=== PATIENT | male | born 2000 | race Caucasian/White ===

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

== ENCOUNTER 2020-07-10 01:21 | Emergency (ER) | payer BC, MEDICAID ==
[2020-07-10] MEDS ORDERED: DELTASONE 20 MG PO ONE (02:27)
[2020-07-10] MEDS ORDERED: Augmentin 875-125 Tablet PO ONE (02:27)
--- NOTE | 2020-07-10 02:34 | ERPHSYRPT ---
- History of Present Illness Time Seen by Provider: 07/10/20 02:10 Source: patient Exam Limitations: no limitations Physician History: 19 years old presented in the ER with chief complaint of difficulty breathing. Patient reports he was sleeping and woke up as if he had a choking sensation and was not able to breathe. It happened twice tonight. Denies any difficulty breathing at present but does have some sore throat and postnasal drip. Denies any tobacco use but does vape. No fever or chills reported. No wheezing or asthma history. Denies any sick contact. Timing/Duration: today, sudden Cough Quality/Degree: moderate Possible Cause: no prior episodes Modifying Factors: Improves With: rest Associated Symptoms: cough, sore throat Allergies/Adverse Reactions: permethrin Allergy (Verified 07/10/20 08:59) Swelling Hx Tetanus, Diphtheria Vaccination/Date Given: Yes Hx Influenza Vaccination/Date Given: No Hx Pneumococcal Vaccination/Date Given: Yes - Review of Systems Constitutional: No Symptoms Eyes: No Symptoms Ears, Nose, & Throat: Throat Pain, Throat Swelling Respiratory: Dyspnea Cardiac: No Symptoms Abdominal/Gastrointestinal: No Symptoms Genitourinary Symptoms: No Symptoms Musculoskeletal: No Symptoms Skin: No Symptoms Neurological: No Symptoms Psychological: No Symptoms Endocrine: No Symptoms Hematologic/Lymphatic: No Symptoms - Past Medical History Pertinent Past Medical History: Yes Neurological History: No Pertinent History ENT History: No Pertinent History Cardiac History: No Pertinent History Respiratory History: Asthma Endocrine Medical History: No Pertinent History Musculoskeletal History: No Pertinent History GI Medical History: No Pertinent History History: No Pertinent History Psycho-Social History: Attention Deficit Disorder, Other Male Reproductive Disorders: No Pertinent History Other Medical History: ADD, anger issues - Past Surgical History Past Surgical History: Yes Neuro Surgical History: No Pertinent History Cardiac: No Pertinent History Respiratory: No Pertinent History Gastrointestinal: No Pertinent History Genitourinary: No Pertinent History Musculoskeletal: No Pertinent History Male Surgical History: No Pertinent History Other Surgical History: TONSILECTOMU. TUBES IN EARS - Social History Smoking Status: Current every day smoker How long have you smoked: 8yrs Exposure to second hand smoke: Yes Drug Use: none Patient Lives Alone: No - Nursing Vital Signs Nursing Vital Signs: Initial Vital Signs Blood Pressure 143/80 07/10/20 02:21 O2 Sat by Pulse Oximetry 99 07/10/20 02:21 - Physical Exam General Appearance: no apparent distress, alert, anxiety Eye Exam: PERRL/EOMI, eyes nml inspection Ears, Nose, Throat Exam: pharyngeal erythema (Postnasal drip) Neck Exam: normal inspection, non-tender, supple, full range of motion Respiratory Exam: normal breath sounds Cardiovascular Exam: regular rate/rhythm, normal heart sounds Gastrointestinal/Abdomen Exam: soft, normal bowel sounds, No tenderness Extremity Exam: normal inspection Neurologic Exam: alert, oriented x 3, cooperative Skin Exam: normal color, warm, dry SpO2 Interpretation: normal O2 Delivery: Room Air - Course Nursing assessment & vital signs reviewed: Yes Ordered Tests: Medication Summary Discontinued Medications Generic Name Dose Route Start Last Admin Trade Name Freq PRN Reason Stop Dose Admin Amoxicillin/Clavulanate Potassium 875 mg 07/10/20 02:27 07/10/20 02:58 Augmentin 875-125 Tablet PO 07/10/20 02:28 875 mg STAT ONE Administration Amoxicillin/Clavulanate Potassium Confirm 07/10/20 02:56 Augmentin 875-125 Tablet Administered 07/10/20 02:57 Dose 875 mg .ROUTE .STK-MED ONE Prednisone 60 mg 07/10/20 02:27 07/10/20 02:58 Deltasone 20 Mg PO 07/10/20 02:28 60 mg STAT ONE Administration Prednisone Confirm 07/10/20 02:56 Deltasone 20 Mg Administered 07/10/20 02:57 Dose 60 mg .ROUTE .STK-MED ONE - Progress Progress: re-examined, unchanged Air Movement: good Progress Note: 07/11/20 11:17 I believe patient has pharyngitis with a lot of postnasal drip causing swelling and feeling as if he is choking. Lungs are bilateral clear to auscultation. He also does vape and is advised to stop it. I would give him steroid and Augmentin to go home. Do not think he needs any other work-up and is stable for discharge. Blood Culture(s) Obtained: No Antibiotics given: Yes Counseled pt/family regarding: diagnosis, need for follow-up - Departure Departure Disposition: Home Clinical Impression: Acute pharyngitis Qualifiers: Pharyngitis/tonsillitis etiology: unspecified etiology Qualified Code(s): J02.9 - Acute pharyngitis, unspecified Condition: Stable Critical Care Time: No Referrals: DOCTOR,NO FAMILY [Primary Care Provider] - SURESH GALINDO [ACTIVE STAFF] - (2 days for reevaluation.) Instructions: Sore Throat, Adult (DC) Additional Instructions: Do not away. Follow-up with primary care for reevaluation. Take Tylenol/ibuprofen as needed. Continue with antibiotics and steroid. Return to ER for any worsening. Prescriptions: Amoxicillin/Potassium Clav [Augmentin 875-125 Tablet] 875 mg PO BID 10 Days #19 tablet Prednisone 20 mg [Deltasone 20 mg] 60 mg PO DAILY 5 Days #15 tablet
[2020-07-10] MEDS ORDERED: DELTASONE 20 MG ONE (02:56)
[2020-07-10] MEDS ORDERED: Augmentin 875-125 Tablet ONE (02:56)
[2020-07-10 03:10] VITALS: BP 143/80; O2SAT 99
== END 2020-07-10 03:05 | disposition home or self-care (01) ==
LOC: ED 01:21
DX: J02.9 Acute pharyngitis, unspecified (principal)
CPT/HCPCS: 99283; A9270-GY

== ENCOUNTER 2020-07-10 08:42 | Emergency (ER) | payer BC ==
[2020-07-10] MEDS ORDERED: Ativan 2 MG/1 ML VIAL IV ONE (08:51)
[2020-07-10] MEDS ORDERED: Sodium Chloride 0.9% 1000 ML 1,000 ML IV STA (08:51)
[2020-07-10] MEDS ORDERED: Sodium Chloride 0.9% 1000 ML 1,000 ML ONE (09:04)
[2020-07-10] MEDS ORDERED: Ativan 2 MG/1 ML VIAL ONE (09:04)
--- NOTE | 2020-07-10 09:16 | ERPHSYRPT ---
- History of Present Illness Time Seen by Provider: 07/10/20 09:13 Source: patient Exam Limitations: no limitations Patient Subjective Stated Complaint: woke up gasping at 2330. Triage Nursing Assessment: . Physician History: 19-year-old male without any significant past medical history started having trouble breathing since last night. She denies any other symptoms. Due to trouble breathing and anxiety he has not been able to sleep since last night. Patient was very anxious when he came to the emergency room. He denies any other symptoms including fever chills nausea vomiting. He also denies COVID exposure. Timing/Duration: today Severity of Dyspnea-Max: moderate Severity of Dyspnea-Current: moderate Possible Cause: no prior episodes Modifying Factors: Improves With: nothing Associated Symptoms: anxiety, insomnia Allergies/Adverse Reactions: permethrin Allergy (Verified 07/10/20 08:59) Swelling Hx Tetanus, Diphtheria Vaccination/Date Given: Yes Hx Influenza Vaccination/Date Given: No Hx Pneumococcal Vaccination/Date Given: Yes Travel Risk - International Travel Have you traveled outside of the country in past 3 weeks: No - Coronavirus Screening Are you exhibiting any of the following symptoms?: No Close contact with a COVID-19 positive Pt in past 14-21 Days: No - Review of Systems Constitutional: No Fever, No Chills Eyes: No Symptoms Ears, Nose, & Throat: No Symptoms Respiratory: Dyspnea, No Cough Cardiac: No Chest Pain, No Edema, No Syncope Abdominal/Gastrointestinal: No Abdominal Pain, No Nausea, No Vomiting, No Diarrhea Genitourinary Symptoms: No Dysuria Musculoskeletal: No Back Pain, No Neck Pain Skin: No Rash Neurological: Dizziness, No Focal Weakness, No Sensory Changes Psychological: No Symptoms Endocrine: No Symptoms All Other Systems: Reviewed and Negative - Past Medical History Pertinent Past Medical History: Yes Neurological History: No Pertinent History ENT History: No Pertinent History Cardiac History: No Pertinent History Respiratory History: Asthma Endocrine Medical History: No Pertinent History Musculoskeletal History: No Pertinent History GI Medical History: No Pertinent History History: No Pertinent History Psycho-Social History: Anxiety, Attention Deficit Disorder, Panic Disorder, Other Male Reproductive Disorders: No Pertinent History Other Medical History: ADD, anger issues - Past Surgical History Past Surgical History: Yes Neuro Surgical History: No Pertinent History Cardiac: No Pertinent History Respiratory: No Pertinent History Gastrointestinal: No Pertinent History Genitourinary: No Pertinent History Musculoskeletal: No Pertinent History Male Surgical History: No Pertinent History Other Surgical History: TONSILECTOMU. TUBES IN EARS - Social History Smoking Status: Former smoker How long have you smoked: 8yrs Exposure to second hand smoke: No Drug Use: none, marijuana Patient Lives Alone: Yes - Nursing Vital Signs Nursing Vital Signs: Initial Vital Signs Temperature 98.9 F 07/10/20 08:47 Pulse Rate 142 H 07/10/20 08:47 Respiratory Rate 25 H 07/10/20 08:47 Blood Pressure 151/97 07/10/20 08:47 O2 Sat by Pulse Oximetry 100 07/10/20 08:47 Pain Scale Pain Intensity 0 - Physical Exam General Appearance: no apparent distress, alert Eye Exam: PERRL/EOMI Neck Exam: normal inspection, supple Cardiovascular/Chest Exam: normal heart sounds, regular rate/rhythm Abdominal/Gastrointestinal Exam: soft, No tenderness, No distention, No mass Extremity Exam: non-tender, normal range of motion, normal inspection, no calf tenderness, no pedal edema Neurologic Exam: alert, oriented x 3, cooperative, 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, sensation nml, No motor deficits Skin Exam: normal color, warm, No dry SpO2 Interpretation: normal SpO2: 100 O2 Delivery: Room Air - Course Nursing assessment & vital signs reviewed: Yes Ordered Tests: Active Orders 24 hr Category Date Time Status CHEST 2 VIEWS (PA AND LAT) Stat Exams 07/10/20 08:53 Taken CBC W DIFF Stat Lab 07/10/20 09:00 Completed CMP Stat Lab 07/10/20 09:00 Completed UA W/RFX UR CULTURE Stat Lab 07/10/20 10:13 Completed Urine Triage Profile Stat Lab 07/10/20 10:13 Completed Medication Summary Discontinued Medications Generic Name Dose Route Start Last Admin Trade Name Freq PRN Reason Stop Dose Admin Sodium Chloride 1,000 mls @ 999 mls/hr 07/10/20 08:51 07/10/20 10:14 Sodium Chloride 0.9% 1000 Ml IV 07/10/20 09:51 Infused .Q1H1M STA Infusion Sodium Chloride Confirm 07/10/20 09:04 Sodium Chloride 0.9% 1000 Ml Administered 07/10/20 09:05 Dose 1,000 mls @ ud .ROUTE .STK-MED ONE Lorazepam 2 mg 07/10/20 08:51 07/10/20 09:06 Ativan 2 Mg/1 Ml Vial IV 07/10/20 08:52 2 mg STAT ONE Administration Lorazepam Confirm 07/10/20 09:04 Ativan 2 Mg/1 Ml Vial Administered 07/10/20 09:05 Dose 2 mg .ROUTE .STK-MED ONE Lab/Rad Data: Laboratory Result Diagrams 07/10/20 09:00 07/10/20 09:00 Laboratory Results 07/10/20 07/10/20 07/10/20 Range/Units 10:13 10:13 09:00 WBC (4.0-10.5) K/mm3 RBC (4.1-5.6) M/mm3 Hgb (12.5-18.0) gm/dl Hct (42-50) % MCV (78-100) fl MCH (26-32) pg MCHC (32-36) g/dl RDW (11.5-14.0) % Plt Count (150-450) K/mm3 MPV (7.5-11.0) fl Gran % (36.0-66.0) % Eos # (Auto) (0-0.5) Absolute Lymphs (auto) (1.0-4.6) Absolute Monos (auto) (0.0-1.3) Lymphocytes % (24.0-44.0) % Monocytes % (0.0-12.0) % Eosinophils % (0.00-5.0) % Basophils % (0.0-0.4) % Absolute Granulocytes (1.4-6.9) Basophils # (0-0.4) Sodium 139 (137-145) mmol/L Potassium 3.9 (3.5-5.1) mmol/L Chloride 102 (98-107) mmol/L Carbon Dioxide 19 L (22-30) mmol/L Anion Gap 22.1 H (5-15) MEQ/L BUN 12 (9-20) mg/dL Creatinine 1.03 (0.66-1.25) mg/dL Estimated GFR > 60.0 ML/MIN Glucose 154 H (74-106) mg/dL Calcium 10.5 H (8.4-10.2) mg/dL Total Bilirubin 2.70 H (0.2-1.3) mg/dL AST 25 (17-59) U/L ALT 16 (0-50) U/L Alkaline Phosphatase 128 H (38-126) U/L Serum Total Protein 9.8 H (6.3-8.2) g/dL Albumin 5.8 H (3.5-5.0) g/dL Urine Color AYLA (YELLOW) Urine Appearance CLOUDY (CLEAR) Urine pH 7.0 (5-6) Ur Specific [place] 1.031 (1.005-1.025) Urine Protein 100 (Negative) Urine Ketones MODERATE (NEGATIVE) Urine Blood NEGATIVE (0-5) Manuel/ul Urine Nitrite NEGATIVE (NEGATIVE) Urine Bilirubin SMALL (NEGATIVE) Urine Urobilinogen 4 (0-1) mg/dL Ur Leukocyte Esterase NEGATIVE (NEGATIVE) Urine WBC (Auto) 3-5 (0-5) /HPF Urine RBC (Auto) NONE (0-2) /HPF U Epithel Cells (Auto) FEW (FEW) /HPF Urine Bacteria (Auto) RARE (NEGATIVE) /HPF Amorphous Crystals MODERATE (NEGATIVE) /HPF Urine Mucus (Auto) MODERATE (NEGATIVE) /HPF Urine Culture Reflexed NO (NO) Urine Glucose NEGATIVE (NEGATIVE) mg/dL Urine Opiates Level NEGATIVE (NEGATIVE) Ur Methadone NEGATIVE (NEGATIVE) Urine Barbiturates NEGATIVE (NEGATIVE) Ur Phencyclidine (PCP) NEGATIVE (NEGATIVE) Urine Amphetamine NEGATIVE (NEGATIVE) U Benzodiazepine Level NEGATIVE (NEGATIVE) Urine Cocaine NEGATIVE (NEGATIVE) Urine Marijuana (THC) POSITIVE (NEGATIVE) 07/10/20 Range/Units 09:00 WBC 9.4 (4.0-10.5) K/mm3 RBC 5.35 (4.1-5.6) M/mm3 Hgb 17.1 (12.5-18.0) gm/dl Hct 49.5 (42-50) % MCV 92.5 (78-100) fl MCH 32.0 (26-32) pg MCHC 34.5 (32-36) g/dl RDW 13.6 (11.5-14.0) % Plt Count 184 (150-450) K/mm3 MPV 11.8 H (7.5-11.0) fl Gran % 91.3 H (36.0-66.0) % Eos # (Auto) 0.01 (0-0.5) Absolute Lymphs (auto) 0.75 L (1.0-4.6) Absolute Monos (auto) 0.05 (0.0-1.3) Lymphocytes % 8.0 L (24.0-44.0) % Monocytes % 0.5 (0.0-12.0) % Eosinophils % 0.1 (0.00-5.0) % Basophils % 0.1 (0.0-0.4) % Absolute Granulocytes 8.56 H (1.4-6.9) Basophils # 0.01 (0-0.4) Sodium (137-145) mmol/L Potassium (3.5-5.1) mmol/L Chloride (98-107) mmol/L Carbon Dioxide (22-30) mmol/L Anion Gap (5-15) MEQ/L BUN (9-20) mg/dL Creatinine (0.66-1.25) mg/dL Estimated GFR ML/MIN Glucose (74-106) mg/dL Calcium (8.4-10.2) mg/dL Total Bilirubin (0.2-1.3) mg/dL AST (17-59) U/L ALT (0-50) U/L Alkaline Phosphatase (38-126) U/L Serum Total Protein (6.3-8.2) g/dL Albumin (3.5-5.0) g/dL Urine Color (YELLOW) Urine Appearance (CLEAR) Urine pH (5-6) Ur Specific [place] (1.005-1.025) Urine Protein (Negative) Urine Ketones (NEGATIVE) Urine Blood (0-5) Manuel/ul Urine Nitrite (NEGATIVE) Urine Bilirubin (NEGATIVE) Urine Urobilinogen (0-1) mg/dL Ur Leukocyte Esterase (NEGATIVE) Urine WBC (Auto) (0-5) /HPF Urine RBC (Auto) (0-2) /HPF U Epithel Cells (Auto) (FEW) /HPF Urine Bacteria (Auto) (NEGATIVE) /HPF Amorphous Crystals (NEGATIVE) /HPF Urine Mucus (Auto) (NEGATIVE) /HPF Urine Culture Reflexed (NO) Urine Glucose (NEGATIVE) mg/dL Urine Opiates Level (NEGATIVE) Ur Methadone (NEGATIVE) Urine Barbiturates (NEGATIVE) Ur Phencyclidine (PCP) (NEGATIVE) Urine Amphetamine (NEGATIVE) U Benzodiazepine Level (NEGATIVE) Urine Cocaine (NEGATIVE) Urine Marijuana (THC) (NEGATIVE) - Progress Progress: improved Air Movement: good Blood Culture(s) Obtained: No Antibiotics given: No Counseled pt/family regarding: drug and/or alcohol abuse, lab results, diagnosis, need for follow-up, rad results, smoking cessation - Departure Departure Disposition: Home Clinical Impression: Anxiety as acute reaction to exceptional stress Insomnia Qualifiers: Insomnia type: psychophysiologic Qualified Code(s): F51.04 - Psychophysiologic insomnia Condition: Stable Critical Care Time: No Referrals: DOCTOR,NO FAMILY [Primary Care Provider] - Instructions: Anxiety, Adult (DC), Insomnia (DC), Tips for Getting Better Sleep Prescriptions: Temazepam 15 mg [Restoril 15 MG] 15 mg PO QHS #15 capsule
[2020-07-10 09:19] LABS: Absolute Neutrophil Ct (ANC) 8.56 (1.4-6.9); BASOPHIL % 0.1 % (0.0-0.4); Basophil (Absolute #) 0.01 (0-0.4); Eosinophil % 0.1 % (0.00-5.0); Eosinophil (Absolute #) 0.01 (0-0.5); Hematocrit 49.5 % (42-50); Hemoglobin 17.1 gm/dl (12.5-18.0); Lymphocyte (Absolute #) 0.75 (1.0-4.6); Mean Cell Volume 92.5 fl (78-100); Mean Corpuscular Hgb Concent. 34.5 g/dl (32-36); Mean Platelet Volume 11.8 fl (7.5-11.0); Monocyte (Absolute #) 0.05 (0.0-1.3); Monocytes % 0.5 % (0.0-12.0); Neutrophil % 91.3 % (36.0-66.0); Platelet Count 184 K/mm3 (150-450); Red Blood Count 5.35 M/mm3 (4.1-5.6); Red Cell Distribution Width 13.6 % (11.5-14.0); White Blood Count 9.4 K/mm3 (4.0-10.5)
[2020-07-10 09:31] LABS: ALBUMIN 5.8 g/dL (3.5-5.0); ALKALINE PHOSPHATASE 128 U/L (38-126); ANION GAP 22.1 MEQ/L (5-15); BLOOD UREA NITROGEN 12 mg/dL (9-20); CHLORIDE 102 mmol/L (98-107); Calcium 10.5 mg/dL (8.4-10.2); Carbon Dioxide 19 mmol/L (22-30); Creatinine 1 1.03 mg/dL (0.66-1.25); Glucose 154 mg/dL (74-106); Potassium 3.9 mmol/L (3.5-5.1); SGOT/AST 25 U/L (17-59); SGPT/ALT 16 U/L (0-50); SODIUM 139 mmol/L (137-145); Total Protein 9.8 g/dL (6.3-8.2)
[2020-07-10 10:26] LABS: Amourphous Crystal MODERATE /HPF (NEGATIVE); Appearance CLOUDY (CLEAR); Bacteria RARE /HPF (NEGATIVE); Bilirubin SMALL (NEGATIVE); Blood NEGATIVE Ery/ul (0-5); Epithelial Cells FEW /HPF (FEW); Glucose NEGATIVE (NEGATIVE); Ketones MODERATE (NEGATIVE); Leukocyte Esterase NEGATIVE (NEGATIVE); Mucus MODERATE /HPF (NEGATIVE); Nitrite NEGATIVE (NEGATIVE); Protein,Urine Dip 100 (Negative); Specific Gravity 1.031 (1.005-1.025); Urobilinogen 4 mg/dL (0-1)
[2020-07-10 10:28] LABS: Amphetamine,Urine NEGATIVE (NEGATIVE); Barbiturate,Urine NEGATIVE (NEGATIVE); Benzodiazepine,Urine NEGATIVE (NEGATIVE); Cocaine,Urine NEGATIVE (NEGATIVE); Methadone,Urine NEGATIVE (NEGATIVE); Opiate,Urine NEGATIVE (NEGATIVE); PCP,Urine NEGATIVE (NEGATIVE); THC,Urine POSITIVE (NEGATIVE)
[2020-07-10 11:11] VITALS: BP 119/69; PULSE 88; O2SAT 98
--- NOTE | 2020-07-10 19:58 | XRAY ---
Indication: Short of breath. Comparison: March 19, 2015. PA/lateral chest again demonstrates normal heart, lungs, and bony thorax.
== END 2020-07-10 11:03 | disposition home or self-care (01) ==
LOC: ED 08:42
DX: F51.04 Psychophysiologic insomnia (principal); F41.1 Generalized anxiety disorder; F43.0 Acute stress reaction
CPT/HCPCS: 36000; 36415; 71046; 80053; 80307; 81001; 85025; 93005; 96360; 96374; 99283; 99284; J2060; A9270-GY

== ENCOUNTER 2020-09-10 00:24 | Observation (INO) | payer BC ==
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
[2020-09-10 01:16] LABS: ACETAMINOPHEN < 10 ug/ml (10-30); ALBUMIN 5.5 g/dL (3.5-5.0); ALKALINE PHOSPHATASE 111 U/L (38-126); ANION GAP 18.9 MEQ/L (5-15); BLOOD UREA NITROGEN 6 mg/dL (9-20); CHLORIDE 110 mmol/L (98-107); Calcium 9.9 mg/dL (8.4-10.2); Carbon Dioxide 21 mmol/L (22-30); Creatinine 1 0.88 mg/dL (0.66-1.25); EST GLOMERULAR FILTRATION RATE > 60.0 ML/MIN; ETHYL ALCOHOL 283 mg/dL (0-10); Glucose 107 mg/dL (74-106); Potassium 4.2 mmol/L (3.5-5.1); SALICYLATE < 1.0 mg/dL (2-20); SGOT/AST 25 U/L (17-59); SGPT/ALT 18 U/L (0-50); SODIUM 145 mmol/L (137-145); Total Protein 9.4 g/dL (6.3-8.2)
[2020-09-10 01:25] LABS: Absolute Neutrophil Ct (ANC) 2.77 (1.4-6.9); BASOPHIL % 0.2 % (0.0-0.4); Basophil (Absolute #) 0.01 (0-0.4); Eosinophil % 1.7 % (0.00-5.0); Eosinophil (Absolute #) 0.09 (0-0.5); Hematocrit 46.5 % (42-50); Hemoglobin 16.1 gm/dl (12.5-18.0); Lymphocyte (Absolute #) 2.27 (1.0-4.6); Lymphocytes % 42.4 % (24.0-44.0); Mean Corpuscular Hemoglobin 31.5 pg (26-32); Mean Corpuscular Hgb Concent. 34.6 g/dl (32-36); Mean Platelet Volume 11.1 fl (7.5-11.0); Monocyte (Absolute #) 0.21 (0.0-1.3); Monocytes % 3.9 % (0.0-12.0); Neutrophil % 51.8 % (36.0-66.0); Platelet Count 186 K/mm3 (150-450); Red Blood Count 5.11 M/mm3 (4.1-5.6); Red Cell Distribution Width 13.2 % (11.5-14.0); White Blood Count 5.4 K/mm3 (4.0-10.5)
[2020-09-10 02:01] LABS: Appearance CLEAR (CLEAR); Bilirubin NEGATIVE (NEGATIVE); Blood NEGATIVE Ery/ul (0-5); Glucose NEGATIVE (NEGATIVE); Ketones NEGATIVE (NEGATIVE); Leukocyte Esterase NEGATIVE (NEGATIVE); Nitrite NEGATIVE (NEGATIVE); Protein,Urine Dip NEGATIVE (Negative); Specific Gravity 1.002 (1.005-1.025); Urobilinogen NEGATIVE mg/dL (0-1)
[2020-09-10 02:14] LABS: Amphetamine,Urine NEGATIVE (NEGATIVE); Barbiturate,Urine NEGATIVE (NEGATIVE); Benzodiazepine,Urine NEGATIVE (NEGATIVE); Cocaine,Urine NEGATIVE (NEGATIVE); Methadone,Urine NEGATIVE (NEGATIVE); Opiate,Urine NEGATIVE (NEGATIVE); PCP,Urine NEGATIVE (NEGATIVE); RBC NONE SEEN /HPF (0-2); THC,Urine NEGATIVE (NEGATIVE); WBC NONE SEEN /HPF (0-5)
[2020-09-10 02:15] LABS: Bacteria NONE SEEN /HPF (NEGATIVE)
[2020-09-10] MEDS ORDERED: TYLENOL 325 MG PO STA (02:39)
[2020-09-10] MEDS ORDERED: TYLENOL 325 MG ONE (02:45)
[2020-09-10] MEDS ORDERED: NICODERM CQ 14 MG ONE (02:52)
[2020-09-10] MEDS ORDERED: NICODERM CQ 14 MG TOP SCH (03:00)
[2020-09-10] MEDS ORDERED: ZOFRAN ODT 4 MG PO PRN (04:53)
[2020-09-10] MEDS ORDERED: TYLENOL 325 MG PO PRN (04:53)
[2020-09-10 06:28] VITALS: O2SAT 97
[2020-09-10] MEDS ORDERED: NICOTINE PATCH 7MG TD SCH (10:00)
[2020-09-10] MEDS ORDERED: Nicoderm CQ 21 MG TOP SCH (11:16)
[2020-09-10 11:28] VITALS: BP 107/64; PULSE 94
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
== END 2020-09-10 15:00 | disposition home or self-care (01) ==
LOC: ED 00:24 → MED SURG 04:44
PROVIDERS: ADMIT Family Medicine; ATTEND Family Medicine
DX: R45.851 Suicidal ideations (principal); F41.9 Anxiety disorder, unspecified; F32.9 Major depressive disorder, single episode, unspecified; F10.920 Alcohol use, unspecified with intoxication, uncomplicated
CPT/HCPCS: 36415; 80053; 80307; 81001; 85025; 93005; 99285; G0378; Q3014; A9270-GY; G0480

== ENCOUNTER 2020-12-27 22:09 | Emergency (ER) | payer BC ==
[2020-12-27] MEDS ORDERED: Sodium Chloride 0.9% 1000 ML 1,000 ML IV STA (22:32)
[2020-12-27 22:50] LABS: Absolute Neutrophil Ct (ANC) 3.25 (1.4-6.9); BASOPHIL % 0.5 % (0.0-0.4); Basophil (Absolute #) 0.03 (0-0.4); Eosinophil (Absolute #) 0.13 (0-0.5); Hematocrit 47.3 % (42-50); Hemoglobin 16.2 gm/dl (12.5-18.0); Lymphocyte (Absolute #) 2.65 (1.0-4.6); Lymphocytes % 41.4 % (24.0-44.0); Mean Cell Volume 88.4 fl (78-100); Mean Corpuscular Hemoglobin 30.3 pg (26-32); Mean Corpuscular Hgb Concent. 34.2 g/dl (32-36); Mean Platelet Volume 10.6 fl (7.5-11.0); Monocyte (Absolute #) 0.34 (0.0-1.3); Monocytes % 5.3 % (0.0-12.0); Neutrophil % 50.8 % (36.0-66.0); Platelet Count 184 K/mm3 (150-450); Red Blood Count 5.35 M/mm3 (4.1-5.6); Red Cell Distribution Width 12.7 % (11.5-14.0); White Blood Count 6.4 K/mm3 (4.0-10.5)
[2020-12-27 22:54] LABS: Appearance CLEAR (CLEAR); Bilirubin NEGATIVE (NEGATIVE); Blood NEGATIVE Ery/ul (0-5); Glucose NEGATIVE (NEGATIVE); Ketones NEGATIVE (NEGATIVE); Leukocyte Esterase NEGATIVE (NEGATIVE); Nitrite NEGATIVE (NEGATIVE); Protein,Urine Dip NEGATIVE (Negative); Specific Gravity 1.002 (1.005-1.025); Urobilinogen NEGATIVE mg/dL (0-1)
[2020-12-27] MEDS ORDERED: Sodium Chloride 0.9% 1000 ML 1,000 ML ONE (22:55)
[2020-12-27 23:02] LABS: ACETAMINOPHEN < 10 ug/ml (10-30); ALBUMIN 4.8 g/dL (3.5-5.0); ALKALINE PHOSPHATASE 85 U/L (38-126); BLOOD UREA NITROGEN 5 mg/dL (9-20); CHLORIDE 112 mmol/L (98-107); Calcium 9.1 mg/dL (8.4-10.2); Carbon Dioxide 20 mmol/L (22-30); Creatinine 1 0.84 mg/dL (0.66-1.25); EST GLOMERULAR FILTRATION RATE > 60.0 ML/MIN; ETHYL ALCOHOL 260 mg/dL (0-10); Glucose 84 mg/dL (74-106); SALICYLATE < 1.0 mg/dL (2-20); SGOT/AST 23 U/L (17-59); SGPT/ALT 15 U/L (0-50); SODIUM 146 mmol/L (137-145); Total Protein 7.8 g/dL (6.3-8.2)
[2020-12-27 23:07] LABS: Amphetamine,Urine NEGATIVE (NEGATIVE); Barbiturate,Urine NEGATIVE (NEGATIVE); Benzodiazepine,Urine NEGATIVE (NEGATIVE); Cocaine,Urine NEGATIVE (NEGATIVE); Methadone,Urine NEGATIVE (NEGATIVE); Opiate,Urine NEGATIVE (NEGATIVE); PCP,Urine NEGATIVE (NEGATIVE); THC,Urine POSITIVE (NEGATIVE)
--- NOTE | 2020-12-27 23:35 | ERPHSYRPT ---
- History of Present Illness Time Seen by Provider: 12/27/20 22:30 Source: patient Exam Limitations: no limitations Patient Subjective Stated Complaint: Patient states " I want to commit suicide I have had enough. My Dad has chosen unbiological children over me his biological son and has decided to move to [place]". Triage Nursing Assessment: Patient arrived to ED and ambulated to room without difficulty. Gait steady. Patient very loud, wired, and rambling upon arrival. Upon talking with patient he did become tearful. Patient stated he tried to kill himself by cutting himself. Patient noted with cuts to left forearm. Cuts superficial and no treatment needed. Upon further skin inspection by MD and RN no further injury noted. Lungs clear bilateral A/P throughout. Patient denies SOB. Patient denies chest pain. No S/S of respiratory distress. Patient stated he had called a friend and had the friend bring him to hospital because he had n ever physically tried to hurt himself because he told investment underwriter he wants to commit suicide by overdosing and going to sleep. Patient states he has been prescribed mood medication but refuses to take. Physician History: Patient is a 20-year-old male private vehicle for evaluation of suicide attempt. Patient states that he has been drinking. Patient states he had 2 cans of for local. Patient expresses a desire to kill himself. Patient states "I have had enough". Patient states that he cut his left forearm with the intention of killing himself. However patient has thought of hurting himself/killing himself by overdosing and just falling asleep. Patient states he is very stressed out. Patient states that he is upset because his father chose his "on biological ch ild over his biological son". Patient states his father is moving to [place] and did not bother to bring his biological son (patient referring to himself his biological son" 3 animated energetic however he is also tearful at times. Patient also mentions that he has not been taking his psych medication. Patient denies overdosing on medication. No trauma. No fever. No chest pain. No nausea vomiting or diaphoresis. No diarrhea. No rash. Patient voices no other complaints concerns at this time. Timing/Duration: today Severity of Symptoms-Max: moderate Severity of Symptoms-Current: mild Context related to: parent Suicidal thoughts: attempt Associated Symptoms: agitated, frustrated, injury, suicidal ideation Previous symptoms: no prior history Allergies/Adverse Reactions: permethrin Allergy (Verified 12/27/20 22:29) Swelling Home Medications: No Reportable Medications [No Reported Medications] 12/27/20 [History] Hx Tetanus, Diphtheria Vaccination/Date Given: Yes Hx Influenza Vaccination/Date Given: No Hx Pneumococcal Vaccination/Date Given: No Immunizations Up to Date: Yes Travel Risk - International Travel Have you traveled outside of the country in past 3 weeks: No - Coronavirus Screening Are you exhibiting any of the following symptoms?: No Close contact with a COVID-19 positive Pt in past 14-21 Days: No - Past Medical History Pertinent Past Medical History: Yes Neurological History: No Pertinent History ENT History: No Pertinent History Cardiac History: No Pertinent History Respiratory History: Asthma Endocrine Medical History: No Pertinent History Musculoskeletal History: No Pertinent History GI Medical History: No Pertinent History History: No Pertinent History Psycho-Social History: Anxiety, Attention Deficit Disorder, Panic Disorder, Other Male Reproductive Disorders: No Pertinent History Other Medical History: ADD, anger issues - Past Surgical History Past Surgical History: Yes Neuro Surgical History: No Pertinent History Cardiac: No Pertinent History Respiratory: No Pertinent History Gastrointestinal: No Pertinent History Genitourinary: No Pertinent History Musculoskeletal: No Pertinent History Male Surgical History: No Pertinent History Other Surgical History: TUBES IN EARS - Social History Smoking Status: Current every day smoker How long have you smoked: 8 years Exposure to second hand smoke: Yes Drug Use: marijuana Patient Lives Alone: Yes - Review of Systems Constitutional: No Symptoms, No Fever, No Chills Eyes: No Symptoms Ears, Nose, & Throat: No Symptoms Respiratory: No Symptoms, No Cough, No Dyspnea Cardiac: No Symptoms, No Chest Pain, No Edema, No Syncope Abdominal/Gastrointestinal: No Symptoms, No Abdominal Pain, No Nausea, No Vomiting, No Diarrhea Genitourinary Symptoms: No Symptoms, No Dysuria Musculoskeletal: No Symptoms, No Back Pain, No Neck Pain Skin: No Symptoms, No Rash Neurological: No Symptoms, No Dizziness, No Focal Weakness, No Sensory Changes Psychological: No Symptoms Endocrine: No Symptoms Hematologic/Lymphatic: No Symptoms Immunological/Allergic: No Symptoms All Other Systems: Reviewed and Negative - Nursing Vital Signs Nursing Vital Signs: Initial Vital Signs Temperature 98.0 F 12/27/20 22:26 Pulse Rate 130 H 12/27/20 22:26 Respiratory Rate 24 12/27/20 22:26 Blood Pressure 140/107 12/27/20 22:26 O2 Sat by Pulse Oximetry 99 12/27/20 22:26 Pain Scale Pain Intensity 0 - Physical Exam General Appearance: no apparent distress Eyes, Ears, Nose, Throat Exam: normal ENT inspection, moist mucous membranes Neck Exam: normal inspection, non-tender, supple Respiratory Exam: normal breath sounds, lungs clear, No respiratory distress Cardiovascular Exam: regular rate/rhythm, No edema Gastrointestinal/Abdominal Exam: soft, No tenderness, No distention Extremities Exam: normal inspection, normal range of motion, evidence of injury, other (Superficial lacerations throughout the volar aspect of left forearm. Extremities neurovascular intact distally. Compartments are soft. Cap refill less than 2 seconds. No other injuries observed.), No edema Current Suicidality: denies suicide plan Neurological Exam: alert, hospital orderly II-XII nml as tested, oriented x 3 Appearance: appropriate appearance, appropriate insight Behavior/Eye Contact/Speech: increased rate of speech, intoxicated appearance Thoughts/Hallucinations: normal thought pattern Skin Exam: normal color, warm, dry, No rash SpO2: 99 O2 Delivery: Room Air - Course Nursing assessment & vital signs reviewed: Yes EKG Interpreted by Me: Sinus Tach, NORMAL AXIS, NORMAL INTERVALS, Right Bundle Branch Block Ordered Tests: Active Orders 24 hr Category Date Time Status Substation Operator Apprentice STAT Care 12/27/20 22:27 Active EKG-ER Only STAT Care 12/27/20 22:27 Active IV Insertion STAT Care 12/27/20 22:27 Active ACETAMINOPHEN Stat Lab 12/27/20 22:28 Completed CBC W DIFF Stat Lab 12/27/20 22:28 Completed CMP Stat Lab 12/27/20 22:28 Completed ETHYL ALCOHOL Stat Lab 12/27/20 22:28 Completed ETHYL ALCOHOL Stat Lab 12/28/20 04:26 Completed SALICYLATE Stat Lab 12/27/20 22:28 Completed UA W/RFX UR CULTURE Stat Lab 12/27/20 22:28 Completed Urine Triage Profile Stat Lab 12/27/20 22:28 Completed Medication Summary Discontinued Medications Generic Name Dose Route Start Last Admin Trade Name Freq PRN Reason Stop Dose Admin Sodium Chloride 1,000 mls @ 999 mls/hr 12/27/20 22:32 12/28/20 01:51 Sodium Chloride 0.9% 1000 Ml IV 12/27/20 23:32 Infused .Q1H1M STA Infusion Sodium Chloride Confirm 12/27/20 22:55 Sodium Chloride 0.9% 1000 Ml Administered 12/27/20 22:56 Dose 1,000 mls @ ud .ROUTE .STK-MED ONE Lorazepam 1 mg 12/27/20 23:48 Ativan 2 Mg/1 Ml Vial IV 12/27/20 23:49 STAT ONE Lab/Rad Data: Laboratory Result Diagrams 12/27/20 22:28 12/27/20 22:28 Laboratory Results 12/28/20 12/27/20 12/27/20 Range/Units 04:26 22:28 22:28 WBC 6.4 (4.0-10.5) K/mm3 RBC 5.35 (4.1-5.6) M/mm3 Hgb 16.2 (12.5-18.0) gm/dl Hct 47.3 (42-50) % MCV 88.4 (78-100) fl MCH 30.3 (26-32) pg MCHC 34.2 (32-36) g/dl RDW 12.7 (11.5-14.0) % Plt Count 184 (150-450) K/mm3 MPV 10.6 (7.5-11.0) fl Gran % 50.8 (36.0-66.0) % Eos # (Auto) 0.13 (0-0.5) Absolute Lymphs (auto) 2.65 (1.0-4.6) Absolute Monos (auto) 0.34 (0.0-1.3) Lymphocytes % 41.4 (24.0-44.0) % Monocytes % 5.3 (0.0-12.0) % Eosinophils % 2.0 (0.00-5.0) % Basophils % 0.5 (0.0-0.4) % Absolute Granulocytes 3.25 (1.4-6.9) Basophils # 0.03 (0-0.4) Sodium 146 H (137-145) mmol/L Potassium 4.0 (3.5-5.1) mmol/L Chloride 112 H (98-107) mmol/L Carbon Dioxide 20 L (22-30) mmol/L Anion Gap 18.0 H (5-15) MEQ/L BUN 5 L (9-20) mg/dL Creatinine 0.84 (0.66-1.25) mg/dL Estimated GFR > 60.0 ML/MIN Glucose 84 (74-106) mg/dL Calcium 9.1 (8.4-10.2) mg/dL Total Bilirubin 1.00 (0.2-1.3) mg/dL AST 23 (17-59) U/L ALT 15 (0-50) U/L Alkaline Phosphatase 85 (38-126) U/L Serum Total Protein 7.8 (6.3-8.2) g/dL Albumin 4.8 (3.5-5.0) g/dL Urine Color (YELLOW) Urine Appearance (CLEAR) Urine pH (5-6) Ur Specific [place] (1.005-1.025) Urine Protein (Negative) Urine Ketones (NEGATIVE) Urine Blood (0-5) Manuel/ul Urine Nitrite (NEGATIVE) Urine Bilirubin (NEGATIVE) Urine Urobilinogen (0-1) mg/dL Ur Leukocyte Esterase (NEGATIVE) Urine WBC (Auto) (0-5) /HPF Urine RBC (Auto) (0-2) /HPF U Epithel Cells (Auto) (FEW) /HPF Urine Bacteria (Auto) (NEGATIVE) /HPF Urine Culture Reflexed (NO) Urine Glucose (NEGATIVE) mg/dL Salicylates < 1.0 L (2-20) mg/dL Urine Opiates Level (NEGATIVE) Ur Methadone (NEGATIVE) Acetaminophen < 10 L (10-30) ug/ml Urine Barbiturates (NEGATIVE) Ur Phencyclidine (PCP) (NEGATIVE) Urine Amphetamine (NEGATIVE) U Benzodiazepine Level (NEGATIVE) Urine Cocaine (NEGATIVE) Urine Marijuana (THC) (NEGATIVE) Ethyl Alcohol 182 H 260 H (0-10) mg/dL 12/27/20 12/27/20 Range/Units 22:28 22:28 WBC (4.0-10.5) K/mm3 RBC (4.1-5.6) M/mm3 Hgb (12.5-18.0) gm/dl Hct (42-50) % MCV (78-100) fl MCH (26-32) pg MCHC (32-36) g/dl RDW (11.5-14.0) % Plt Count (150-450) K/mm3 MPV (7.5-11.0) fl Gran % (36.0-66.0) % Eos # (Auto) (0-0.5) Absolute Lymphs (auto) (1.0-4.6) Absolute Monos (auto) (0.0-1.3) Lymphocytes % (24.0-44.0) % Monocytes % (0.0-12.0) % Eosinophils % (0.00-5.0) % Basophils % (0.0-0.4) % Absolute Granulocytes (1.4-6.9) Basophils # (0-0.4) Sodium (137-145) mmol/L Potassium (3.5-5.1) mmol/L Chloride (98-107) mmol/L Carbon Dioxide (22-30) mmol/L Anion Gap (5-15) MEQ/L BUN (9-20) mg/dL Creatinine (0.66-1.25) mg/dL Estimated GFR ML/MIN Glucose (74-106) mg/dL Calcium (8.4-10.2) mg/dL Total Bilirubin (0.2-1.3) mg/dL AST (17-59) U/L ALT (0-50) U/L Alkaline Phosphatase (38-126) U/L Serum Total Protein (6.3-8.2) g/dL Albumin (3.5-5.0) g/dL Urine Color COLORLESS (YELLOW) Urine Appearance CLEAR (CLEAR) Urine pH 6.0 (5-6) Ur Specific [place] 1.002 (1.005-1.025) Urine Protein NEGATIVE (Negative) Urine Ketones NEGATIVE (NEGATIVE) Urine Blood NEGATIVE (0-5) Manuel/ul Urine Nitrite NEGATIVE (NEGATIVE) Urine Bilirubin NEGATIVE (NEGATIVE) Urine Urobilinogen NEGATIVE (0-1) mg/dL Ur Leukocyte Esterase NEGATIVE (NEGATIVE) Urine WBC (Auto) NONE (0-5) /HPF Urine RBC (Auto) NONE (0-2) /HPF U Epithel Cells (Auto) NONE (FEW) /HPF Urine Bacteria (Auto) NONE (NEGATIVE) /HPF Urine Culture Reflexed NO (NO) Urine Glucose NEGATIVE (NEGATIVE) mg/dL Salicylates (2-20) mg/dL Urine Opiates Level NEGATIVE (NEGATIVE) Ur Methadone NEGATIVE (NEGATIVE) Acetaminophen (10-30) ug/ml Urine Barbiturates NEGATIVE (NEGATIVE) Ur Phencyclidine (PCP) NEGATIVE (NEGATIVE) Urine Amphetamine NEGATIVE (NEGATIVE) U Benzodiazepine Level NEGATIVE (NEGATIVE) Urine Cocaine NEGATIVE (NEGATIVE) Urine Marijuana (THC) POSITIVE (NEGATIVE) Ethyl Alcohol (0-10) mg/dL - Progress Progress: improved Progress Note: 12/28/20 06:51 Patient reassessed. He feels much better. Work-up reveals marijuana use. Alcohol intoxication. Patient medically cleared for psych admission. We are awaiting placement. Patient endorsed to Dr. Norris at 7 AM. [place] paperwork completed. Plan of care discussed with patient. He is resting comfortably. Patient voices no other complaints or concerns at this time. Counseled pt/family regarding: lab results, diagnosis - Departure Departure Disposition: Extended Care Facility Clinical Impression: Suicidal ideation, Alcohol intoxication, Self-mutilation, Non compliance w medication regimen, Forearm abrasion, non-infected, Tachycardia, Marijuana use Condition: Stable Critical Care Time: No Referrals: DOCTOR,NO FAMILY [Primary Care Provider] -
[2020-12-27] MEDS ORDERED: Ativan 2 MG/1 ML VIAL IV ONE (23:48)
[2020-12-28] MEDS ORDERED: Ativan 2 MG/1 ML VIAL ONE (08:55)
[2020-12-28 08:56] LABS: COVID AG -BINAX NOW RAPID TEST NEGATIVE (NEGATIVE)
[2020-12-28 11:41] VITALS: BP 126/68; PULSE 85; O2SAT 95
== END 2020-12-28 13:19 | disposition short-term general hospital (02) ==
LOC: ED 22:09
DX: R45.851 Suicidal ideations (principal); F10.929 Alcohol use, unspecified with intoxication, unspecified; F12.90 Cannabis use, unspecified, uncomplicated; S50.812A Abrasion of left forearm, initial encounter; X78.9XXA Intentional self-harm by unspecified sharp object, initial encounter; Z91.14 Patient's other noncompliance with medication regimen; R00.0 Tachycardia, unspecified
CPT/HCPCS: 36000; 36415; 80053; 80307; 81001; 84484; 85025; 93005; 93041; 96360; 99000; 99285; J2060; G0480

== ENCOUNTER 2021-05-09 00:09 | Observation (INO) | payer BC ==
[2021-05-09 00:43] LABS: BASOPHIL % 0.5 % (0.0-0.4); Basophil (Absolute #) 0.03 (0-0.4); Eosinophil % 1.8 % (0.00-5.0); Hemoglobin 14.9 gm/dl (12.5-18.0); Lymphocyte (Absolute #) 2.25 (1.0-4.6); Lymphocytes % 39.5 % (24.0-44.0); Mean Cell Volume 89.1 fl (78-100); Mean Corpuscular Hemoglobin 30.2 pg (26-32); Mean Corpuscular Hgb Concent. 33.9 g/dl (32-36); Mean Platelet Volume 10.5 fl (7.5-11.0); Monocyte (Absolute #) 0.31 (0.0-1.3); Monocytes % 5.4 % (0.0-12.0); Neutrophil % 52.8 % (36.0-66.0); Platelet Count 176 K/mm3 (150-450); Red Blood Count 4.94 M/mm3 (4.1-5.6); Red Cell Distribution Width 13.3 % (11.5-14.0); White Blood Count 5.7 K/mm3 (4.0-10.5)
[2021-05-09 00:45] LABS: Appearance CLEAR (CLEAR); Bilirubin NEGATIVE (NEGATIVE); Blood NEGATIVE Ery/ul (0-5); Glucose NEGATIVE (NEGATIVE); Ketones NEGATIVE (NEGATIVE); Leukocyte Esterase NEGATIVE (NEGATIVE); Nitrite NEGATIVE (NEGATIVE); Protein,Urine Dip NEGATIVE (Negative); Specific Gravity 1.003 (1.005-1.025); Urobilinogen NEGATIVE mg/dL (0-1)
[2021-05-09 00:52] LABS: ACETAMINOPHEN < 10 ug/ml (10-30); ALBUMIN 5.1 g/dL (3.5-5.0); ALKALINE PHOSPHATASE 80 U/L (38-126); ANION GAP 19.8 MEQ/L (5-15); BLOOD UREA NITROGEN 7 mg/dL (9-20); CHLORIDE 109 mmol/L (98-107); Calcium 9.4 mg/dL (8.4-10.2); Carbon Dioxide 24 mmol/L (22-30); Creatinine 1 0.89 mg/dL (0.66-1.25); EST GLOMERULAR FILTRATION RATE > 60.0 ML/MIN; ETHYL ALCOHOL 250 mg/dL (0-10); Glucose 107 mg/dL (74-106); Potassium 4.6 mmol/L (3.5-5.1); SALICYLATE < 1.0 mg/dL (2-20); SGOT/AST 24 U/L (17-59); SGPT/ALT 15 U/L (0-50); SODIUM 148 mmol/L (137-145); Total Protein 8.2 g/dL (6.3-8.2)
[2021-05-09 00:57] LABS: Amphetamine,Urine NEGATIVE (NEGATIVE); Barbiturate,Urine NEGATIVE (NEGATIVE); Benzodiazepine,Urine NEGATIVE (NEGATIVE); Cocaine,Urine NEGATIVE (NEGATIVE); Methadone,Urine NEGATIVE (NEGATIVE); Opiate,Urine NEGATIVE (NEGATIVE); PCP,Urine NEGATIVE (NEGATIVE); THC,Urine POSITIVE (NEGATIVE)
--- NOTE | 2021-05-09 01:16 | ERPHSYRPT ---
- History of Present Illness Source: patient, police Exam Limitations: other (Poor historian) Patient Subjective Stated Complaint: pt states, "I feel like I'm going to kill myself, I always feel this way, because I'm a depressed piece of shit". Triage Nursing Assessment: pt arrived via police. Pt called police himself, stating "I want to kill myself". Pt states, "I'm a depressed piece of shit and I'm dee and my brothers want nothing to do with me". Pts plan would be to overdose and go by "peaceful sleep", although he has not taken any pills today. Pt smokes marijuana daily, last time was 1800 today. Pt went to [employer] with family swimming all day and returned home around 1730 and has been severely depressed since return home. Physician History: 20 yo wm states that he is suicidal and wants to OD. Pt has a h/o depression. He called the police himself. Last inpt treatment was 3-4 months ago. Timing/Duration: today (Pt states always suicidal) Severity of Symptoms-Max: severe Severity of Symptoms-Current: moderate Context related to: sexual orientation, other Suicidal thoughts: specific plan Associated Symptoms: insomnia, suicidal ideation Previous symptoms: same symptoms as today Allergies/Adverse Reactions: permethrin Allergy (Verified 05/09/21 00:36) Swelling Home Medications: No Reportable Medications [No Reported Medications] 12/27/20 [History] Hx Tetanus, Diphtheria Vaccination/Date Given: Yes Hx Influenza Vaccination/Date Given: No Hx Pneumococcal Vaccination/Date Given: No Immunizations Up to Date: Yes Travel Risk - International Travel Have you traveled outside of the country in past 3 weeks: No - Coronavirus Screening Are you exhibiting any of the following symptoms?: No Close contact with a COVID-19 positive Pt in past 14-21 Days: No - Vaccine Status Have you recieved a Covid-19 vaccination: No - Past Medical History Pertinent Past Medical History: Yes Neurological History: No Pertinent History ENT History: No Pertinent History Cardiac History: No Pertinent History Respiratory History: Asthma Endocrine Medical History: No Pertinent History Musculoskeletal History: No Pertinent History GI Medical History: No Pertinent History History: No Pertinent History Psycho-Social History: Anxiety, Attention Deficit Disorder, Panic Disorder, Other Male Reproductive Disorders: No Pertinent History Other Medical History: ADD, anger issues - Past Surgical History Past Surgical History: Yes Neuro Surgical History: No Pertinent History Cardiac: No Pertinent History Respiratory: No Pertinent History Gastrointestinal: No Pertinent History Genitourinary: No Pertinent History Musculoskeletal: No Pertinent History Male Surgical History: No Pertinent History Other Surgical History: TUBES IN EARS - Social History Smoking Status: Former smoker How long have you smoked: 8 years Exposure to second hand smoke: Yes Drug Use: marijuana Patient Lives Alone: No Significant Family History: no pertinent family hx - Review of Systems Constitutional: No Symptoms Eyes: No Symptoms Ears, Nose, & Throat: No Symptoms Respiratory: No Symptoms Cardiac: No Symptoms Abdominal/Gastrointestinal: No Symptoms Genitourinary Symptoms: No Symptoms Musculoskeletal: No Symptoms Skin: No Symptoms Neurological: No Symptoms Psychological: Alcohol Abuse, Depression, Suicidal Ideations Endocrine: No Symptoms Hematologic/Lymphatic: No Symptoms Immunological/Allergic: No Symptoms - Nursing Vital Signs Nursing Vital Signs: Initial Vital Signs Temperature 97.9 F 05/09/21 00:10 Pulse Rate 112 H 05/09/21 00:10 Respiratory Rate 18 05/09/21 00:10 Blood Pressure 131/79 05/09/21 00:10 O2 Sat by Pulse Oximetry 98 05/09/21 00:10 Pain Scale Pain Intensity 0 - Physical Exam General Appearance: anxiety Eyes, Ears, Nose, Throat Exam: normal ENT inspection, TMs normal, moist mucous membranes Neck Exam: normal inspection, non-tender, supple, No Brudzinski, No Kernig's Respiratory Exam: normal breath sounds, lungs clear, airway intact, No respiratory distress Cardiovascular Exam: tachycardia (Mildly tachy) Gastrointestinal/Abdominal Exam: soft, normal bowel sounds, No tenderness Extremities Exam: normal inspection, normal range of motion, No evidence of injury Current Suicidality: has suicide plan Neurological Exam: alert, oriented x 3, responds to pain, agitated (At times) Appearance: appropriate appearance Behavior/Eye Contact/Speech: alert & cooperative Thoughts/Hallucinations: normal thought pattern, no apparent hallucination, No auditory hallucinations Skin Exam: normal color, warm, dry, No rash SpO2 Interpretation: normal SpO2: 98 O2 Delivery: Room Air - Course Nursing assessment & vital signs reviewed: Yes Ordered Tests: Active Orders 24 hr Category Date Time Status ACETAMINOPHEN Stat Lab 05/09/21 00:30 Completed CBC W DIFF Stat Lab 05/09/21 00:30 Completed CMP Stat Lab 05/09/21 00:30 Completed ETHYL ALCOHOL Stat Lab 05/09/21 00:30 Completed SALICYLATE Stat Lab 05/09/21 00:30 Completed UA W/RFX UR CULTURE Stat Lab 05/09/21 00:38 Completed Urine Triage Profile Stat Lab 05/09/21 00:38 Completed Lab/Rad Data: Laboratory Result Diagrams 05/09/21 00:30 05/09/21 00:30 Laboratory Results 05/09/21 05/09/21 05/09/21 Range/Units 00:38 00:38 00:30 WBC (4.0-10.5) K/mm3 RBC (4.1-5.6) M/mm3 Hgb (12.5-18.0) gm/dl Hct (42-50) % MCV (78-100) fl MCH (26-32) pg MCHC (32-36) g/dl RDW (11.5-14.0) % Plt Count (150-450) K/mm3 MPV (7.5-11.0) fl Gran % (36.0-66.0) % Eos # (Auto) (0-0.5) Absolute Lymphs (auto) (1.0-4.6) Absolute Monos (auto) (0.0-1.3) Lymphocytes % (24.0-44.0) % Monocytes % (0.0-12.0) % Eosinophils % (0.00-5.0) % Basophils % (0.0-0.4) % Absolute Granulocytes (1.4-6.9) Basophils # (0-0.4) Sodium 148 H (137-145) mmol/L Potassium 4.6 (3.5-5.1) mmol/L Chloride 109 H (98-107) mmol/L Carbon Dioxide 24 (22-30) mmol/L Anion Gap 19.8 H (5-15) MEQ/L BUN 7 L (9-20) mg/dL Creatinine 0.89 (0.66-1.25) mg/dL Estimated GFR > 60.0 ML/MIN Glucose 107 H (74-106) mg/dL Calcium 9.4 (8.4-10.2) mg/dL Total Bilirubin 1.10 (0.2-1.3) mg/dL AST 24 (17-59) U/L ALT 15 (0-50) U/L Alkaline Phosphatase 80 (38-126) U/L Serum Total Protein 8.2 (6.3-8.2) g/dL Albumin 5.1 H (3.5-5.0) g/dL Urine Color STRAW (YELLOW) Urine Appearance CLEAR (CLEAR) Urine pH 6.0 (5-6) Ur Specific [place] 1.003 (1.005-1.025) Urine Protein NEGATIVE (Negative) Urine Ketones NEGATIVE (NEGATIVE) Urine Blood NEGATIVE (0-5) Manuel/ul Urine Nitrite NEGATIVE (NEGATIVE) Urine Bilirubin NEGATIVE (NEGATIVE) Urine Urobilinogen NEGATIVE (0-1) mg/dL Ur Leukocyte Esterase NEGATIVE (NEGATIVE) Urine WBC (Auto) NONE (0-5) /HPF Urine RBC (Auto) NONE (0-2) /HPF U Epithel Cells (Auto) NONE (FEW) /HPF Urine Bacteria (Auto) NONE (NEGATIVE) /HPF Urine Culture Reflexed NO (NO) Urine Glucose NEGATIVE (NEGATIVE) mg/dL Salicylates < 1.0 L (2-20) mg/dL Urine Opiates Level NEGATIVE (NEGATIVE) Ur Methadone NEGATIVE (NEGATIVE) Acetaminophen < 10 L (10-30) ug/ml Urine Barbiturates NEGATIVE (NEGATIVE) Ur Phencyclidine (PCP) NEGATIVE (NEGATIVE) Urine Amphetamine NEGATIVE (NEGATIVE) U Benzodiazepine Level NEGATIVE (NEGATIVE) Urine Cocaine NEGATIVE (NEGATIVE) Urine Marijuana (THC) POSITIVE (NEGATIVE) Ethyl Alcohol 250 H (0-10) mg/dL 05/09/21 Range/Units 00:30 WBC 5.7 (4.0-10.5) K/mm3 RBC 4.94 (4.1-5.6) M/mm3 Hgb 14.9 (12.5-18.0) gm/dl Hct 44.0 (42-50) % MCV 89.1 (78-100) fl MCH 30.2 (26-32) pg MCHC 33.9 (32-36) g/dl RDW 13.3 (11.5-14.0) % Plt Count 176 (150-450) K/mm3 MPV 10.5 (7.5-11.0) fl Gran % 52.8 (36.0-66.0) % Eos # (Auto) 0.10 (0-0.5) Absolute Lymphs (auto) 2.25 (1.0-4.6) Absolute Monos (auto) 0.31 (0.0-1.3) Lymphocytes % 39.5 (24.0-44.0) % Monocytes % 5.4 (0.0-12.0) % Eosinophils % 1.8 (0.00-5.0) % Basophils % 0.5 (0.0-0.4) % Absolute Granulocytes 3.00 (1.4-6.9) Basophils # 0.03 (0-0.4) Sodium (137-145) mmol/L Potassium (3.5-5.1) mmol/L Chloride (98-107) mmol/L Carbon Dioxide (22-30) mmol/L Anion Gap (5-15) MEQ/L BUN (9-20) mg/dL Creatinine (0.66-1.25) mg/dL Estimated GFR ML/MIN Glucose (74-106) mg/dL Calcium (8.4-10.2) mg/dL Total Bilirubin (0.2-1.3) mg/dL AST (17-59) U/L ALT (0-50) U/L Alkaline Phosphatase (38-126) U/L Serum Total Protein (6.3-8.2) g/dL Albumin (3.5-5.0) g/dL Urine Color (YELLOW) Urine Appearance (CLEAR) Urine pH (5-6) Ur Specific [place] (1.005-1.025) Urine Protein (Negative) Urine Ketones (NEGATIVE) Urine Blood (0-5) Manuel/ul Urine Nitrite (NEGATIVE) Urine Bilirubin (NEGATIVE) Urine Urobilinogen (0-1) mg/dL Ur Leukocyte Esterase (NEGATIVE) Urine WBC (Auto) (0-5) /HPF Urine RBC (Auto) (0-2) /HPF U Epithel Cells (Auto) (FEW) /HPF Urine Bacteria (Auto) (NEGATIVE) /HPF Urine Culture Reflexed (NO) Urine Glucose (NEGATIVE) mg/dL Salicylates (2-20) mg/dL Urine Opiates Level (NEGATIVE) Ur Methadone (NEGATIVE) Acetaminophen (10-30) ug/ml Urine Barbiturates (NEGATIVE) Ur Phencyclidine (PCP) (NEGATIVE) Urine Amphetamine (NEGATIVE) U Benzodiazepine Level (NEGATIVE) Urine Cocaine (NEGATIVE) Urine Marijuana (THC) (NEGATIVE) Ethyl Alcohol (0-10) mg/dL - Progress Progress Note: 05/09/21 01:24 Pt w good airway and cooperative. EtOh 250 and [facility][1] will not consult until level 80. Obs per Dr. Aguero. 05/09/21 01:34 Discussed with : Coleman Counseled pt/family regarding: drug and/or alcohol abuse, need for follow-up - Departure Departure Disposition: Observation Clinical Impression: Suicidal ideation, Alcohol intoxication Condition: Stable Critical Care Time: No Referrals: DOCTOR,NO FAMILY [Primary Care Provider] -
[2021-05-09] MEDS ORDERED: Zofran 4 MG/2 ML VIAL IV PRN (01:27)
[2021-05-09] MEDS ORDERED: THERAGRAN MULTIVITAMIN PO ONE (01:32)
[2021-05-09] MEDS ORDERED: FOLATE 1 MG PO ONE (01:32)
[2021-05-09] MEDS: Sodium Chloride 0.9% 1000 ML 1,000 ML IV SCH ×2 (01:38→07:59)
[2021-05-09] MEDS ORDERED: Ativan 2 MG/1 ML VIAL IV PRN (04:25)
[2021-05-09] MEDS ORDERED: TYLENOL EXTRA STRENGTH 500 MG PO PRN (04:26)
[2021-05-09] MEDS ORDERED: FOLATE 1 MG ONE (04:31)
[2021-05-09] MEDS ORDERED: THERAGRAN MULTIVITAMIN ONE (04:31)
[2021-05-09 05:09] LABS: Absolute Neutrophil Ct (ANC) 2.38 (1.4-6.9); BASOPHIL % 0.4 % (0.0-0.4); Basophil (Absolute #) 0.02 (0-0.4); Eosinophil % 1.5 % (0.00-5.0); Eosinophil (Absolute #) 0.07 (0-0.5); Hematocrit 41.1 % (42-50); Hemoglobin 13.8 gm/dl (12.5-18.0); Lymphocyte (Absolute #) 1.88 (1.0-4.6); Lymphocytes % 40.7 % (24.0-44.0); Mean Cell Volume 90.3 fl (78-100); Mean Corpuscular Hemoglobin 30.3 pg (26-32); Mean Corpuscular Hgb Concent. 33.6 g/dl (32-36); Mean Platelet Volume 10.7 fl (7.5-11.0); Monocyte (Absolute #) 0.27 (0.0-1.3); Monocytes % 5.8 % (0.0-12.0); Neutrophil % 51.6 % (36.0-66.0); Platelet Count 165 K/mm3 (150-450); Red Blood Count 4.55 M/mm3 (4.1-5.6); Red Cell Distribution Width 13.4 % (11.5-14.0); White Blood Count 4.6 K/mm3 (4.0-10.5)
[2021-05-09 05:19] LABS: ALBUMIN 4.5 g/dL (3.5-5.0); ALKALINE PHOSPHATASE 71 U/L (38-126); ANION GAP 17.6 MEQ/L (5-15); BLOOD UREA NITROGEN 7 mg/dL (9-20); CHLORIDE 109 mmol/L (98-107); Calcium 8.3 mg/dL (8.4-10.2); Carbon Dioxide 20 mmol/L (22-30); Creatinine 1 0.83 mg/dL (0.66-1.25); EST GLOMERULAR FILTRATION RATE > 60.0 ML/MIN; ETHYL ALCOHOL 170 mg/dL (0-10); Glucose 103 mg/dL (74-106); Potassium 3.9 mmol/L (3.5-5.1); SGOT/AST 21 U/L (17-59); SGPT/ALT 12 U/L (0-50); SODIUM 143 mmol/L (137-145); Total Protein 7.2 g/dL (6.3-8.2)
[2021-05-09 07:34] VITALS: O2SAT 98
[2021-05-09 08:01] VITALS: BP 91/37; PULSE 66
[2021-05-09] MEDS ORDERED: PROTONIX 40 MG IV IV SCH ×2 (10:00→22:00)
--- NOTE | 2021-05-09 11:42 | PCM.SSS ---
History of Present Illness - Chief Complaint Chief Complaint: suicidal ideation/ETOH abuse History of Present Illness: is a 20 year old male with long Hx of depression and suicidal idea tion. He was drinking and was suicidal and called the Police and they brought him to ER. Medications & Allergies Home Medications: Home Medication List No Reportable Medications [No Reported Medications] 12/27/20 [History Confirmed 05/09/21] Allergies/Adverse Reactions: Allergies Allergy/AdvReac Type Severity Reaction Status Date / Time permethrin Allergy Swelling Verified 05/09/21 03:21 - Past Medical History Past Medical History: Yes Neurological History: No Pertinent History ENT History: No Pertinent History Cardiac History: No Pertinent History Respiratory History: Asthma, Sleep Apnea Endocrine Medical History: No Pertinent History Musculoskelatal History: No Pertinent History GI Medical History: No Pertinent History History: No Pertinent History Pyscho-Social History: Anxiety, Attention Deficit Disorder, Panic Disorder, Other Male Reproductive Disorders: No Pertinent History Comment: anger issues, seperation anxiety - dad - Past Surgical History Past Surgical History: Yes Neuro Surgical History: No Pertinent History Cardiac History: No Pertinent History Respiratory Surgery: No Pertinent History GI Surgical History: No Pertinent History Genitourinary Surgical Hx: No Pertinent History Musculskeletal Surgical Hx: No Pertinent History Male Surgical History: No Pertinent History Other Surgical History: TUBES IN EARS x 4 - Social History Smoking Status: Current some day smoker How long have you smoked: 10 years Exposure to second hand smoke: Yes Alcohol: Weekly Drug Use: marijuana Significant Family History: no pertinent family hx - Physical Exam Vital Signs: Vital Signs - 24 hr Temp Pulse Resp BP Pulse Ox 05/09/21 08:01 66 91/37 05/09/21 07:28 70 16 86/38 98 05/09/21 04:00 13 05/09/21 03:25 97.2 F 107 H 14 117/59 100 05/09/21 03:23 97.2 F 107 H 14 117/59 100 05/09/21 03:22 97.2 F 89 13 117/59 100 05/09/21 01:34 98 05/09/21 01:10 96 H 16 96/57 95 05/09/21 00:10 97.9 F 112 H 18 131/79 98 Results - Labs Lab/Micro Results: Lab Results-Last 24 Hours 05/09/21 05/09/21 05/09/21 Range/Units 00:30 00:30 00:38 WBC 5.7 (4.0-10.5) K/mm3 RBC 4.94 (4.1-5.6) M/mm3 Hgb 14.9 (12.5-18.0) gm/dl Hct 44.0 (42-50) % MCV 89.1 (78-100) fl MCH 30.2 (26-32) pg MCHC 33.9 (32-36) g/dl RDW 13.3 (11.5-14.0) % Plt Count 176 (150-450) K/mm3 MPV 10.5 (7.5-11.0) fl Gran % 52.8 (36.0-66.0) % Eos # (Auto) 0.10 (0-0.5) Absolute Lymphs (auto) 2.25 (1.0-4.6) Absolute Monos (auto) 0.31 (0.0-1.3) Lymphocytes % 39.5 (24.0-44.0) % Monocytes % 5.4 (0.0-12.0) % Eosinophils % 1.8 (0.00-5.0) % Basophils % 0.5 (0.0-0.4) % Absolute Granulocytes 3.00 (1.4-6.9) Basophils # 0.03 (0-0.4) Sodium 148 H (137-145) mmol/L Potassium 4.6 (3.5-5.1) mmol/L Chloride 109 H (98-107) mmol/L Carbon Dioxide 24 (22-30) mmol/L Anion Gap 19.8 H (5-15) MEQ/L BUN 7 L (9-20) mg/dL Creatinine 0.89 (0.66-1.25) mg/dL Estimated GFR > 60.0 ML/MIN Glucose 107 H (74-106) mg/dL Calcium 9.4 (8.4-10.2) mg/dL Total Bilirubin 1.10 (0.2-1.3) mg/dL AST 24 (17-59) U/L ALT 15 (0-50) U/L Alkaline Phosphatase 80 (38-126) U/L Serum Total Protein 8.2 (6.3-8.2) g/dL Albumin 5.1 H (3.5-5.0) g/dL Urine Color STRAW (YELLOW) Urine Appearance CLEAR (CLEAR) Urine pH 6.0 (5-6) Ur Specific [place] 1.003 (1.005-1.025) Urine Protein NEGATIVE (Negative) Urine Ketones NEGATIVE (NEGATIVE) Urine Blood NEGATIVE (0-5) Manuel/ul Urine Nitrite NEGATIVE (NEGATIVE) Urine Bilirubin NEGATIVE (NEGATIVE) Urine Urobilinogen NEGATIVE (0-1) mg/dL Ur Leukocyte Esterase NEGATIVE (NEGATIVE) Urine WBC (Auto) NONE (0-5) /HPF Urine RBC (Auto) NONE (0-2) /HPF U Epithel Cells (Auto) NONE (FEW) /HPF Urine Bacteria (Auto) NONE (NEGATIVE) /HPF Urine Culture Reflexed NO (NO) Urine Glucose NEGATIVE (NEGATIVE) mg/dL Salicylates < 1.0 L (2-20) mg/dL Urine Opiates Level (NEGATIVE) Ur Methadone (NEGATIVE) Acetaminophen < 10 L (10-30) ug/ml Urine Barbiturates (NEGATIVE) Ur Phencyclidine (PCP) (NEGATIVE) Urine Amphetamine (NEGATIVE) U Benzodiazepine Level (NEGATIVE) Urine Cocaine (NEGATIVE) Urine Marijuana (THC) (NEGATIVE) Ethyl Alcohol 250 H (0-10) mg/dL SARS-CoV-2 (PCR) (NEGATIVE) 05/09/21 05/09/21 05/09/21 Range/Units 00:38 01:41 05:00 WBC 4.6 (4.0-10.5) K/mm3 RBC 4.55 (4.1-5.6) M/mm3 Hgb 13.8 (12.5-18.0) gm/dl Hct 41.1 L (42-50) % MCV 90.3 (78-100) fl MCH 30.3 (26-32) pg MCHC 33.6 (32-36) g/dl RDW 13.4 (11.5-14.0) % Plt Count 165 (150-450) K/mm3 MPV 10.7 (7.5-11.0) fl Gran % 51.6 (36.0-66.0) % Eos # (Auto) 0.07 (0-0.5) Absolute Lymphs (auto) 1.88 (1.0-4.6) Absolute Monos (auto) 0.27 (0.0-1.3) Lymphocytes % 40.7 (24.0-44.0) % Monocytes % 5.8 (0.0-12.0) % Eosinophils % 1.5 (0.00-5.0) % Basophils % 0.4 (0.0-0.4) % Absolute Granulocytes 2.38 (1.4-6.9) Basophils # 0.02 (0-0.4) Sodium (137-145) mmol/L Potassium (3.5-5.1) mmol/L Chloride (98-107) mmol/L Carbon Dioxide (22-30) mmol/L Anion Gap (5-15) MEQ/L BUN (9-20) mg/dL Creatinine (0.66-1.25) mg/dL Estimated GFR ML/MIN Glucose (74-106) mg/dL Calcium (8.4-10.2) mg/dL Total Bilirubin (0.2-1.3) mg/dL AST (17-59) U/L ALT (0-50) U/L Alkaline Phosphatase (38-126) U/L Serum Total Protein (6.3-8.2) g/dL Albumin (3.5-5.0) g/dL Urine Color (YELLOW) Urine Appearance (CLEAR) Urine pH (5-6) Ur Specific [place] (1.005-1.025) Urine Protein (Negative) Urine Ketones (NEGATIVE) Urine Blood (0-5) Manuel/ul Urine Nitrite (NEGATIVE) Urine Bilirubin (NEGATIVE) Urine Urobilinogen (0-1) mg/dL Ur Leukocyte Esterase (NEGATIVE) Urine WBC (Auto) (0-5) /HPF Urine RBC (Auto) (0-2) /HPF U Epithel Cells (Auto) (FEW) /HPF Urine Bacteria (Auto) (NEGATIVE) /HPF Urine Culture Reflexed (NO) Urine Glucose (NEGATIVE) mg/dL Salicylates (2-20) mg/dL Urine Opiates Level NEGATIVE (NEGATIVE) Ur Methadone NEGATIVE (NEGATIVE) Acetaminophen (10-30) ug/ml Urine Barbiturates NEGATIVE (NEGATIVE) Ur Phencyclidine (PCP) NEGATIVE (NEGATIVE) Urine Amphetamine NEGATIVE (NEGATIVE) U Benzodiazepine Level NEGATIVE (NEGATIVE) Urine Cocaine NEGATIVE (NEGATIVE) Urine Marijuana (THC) POSITIVE (NEGATIVE) Ethyl Alcohol (0-10) mg/dL SARS-CoV-2 (PCR) NEGATIVE (NEGATIVE) 06/15/21 Range/Units 05:00 WBC (4.0-10.5) K/mm3 RBC (4.1-5.6) M/mm3 Hgb (12.5-18.0) gm/dl Hct (42-50) % MCV (78-100) fl MCH (26-32) pg MCHC (32-36) g/dl RDW (11.5-14.0) % Plt Count (150-450) K/mm3 MPV (7.5-11.0) fl Gran % (36.0-66.0) % Eos # (Auto) (0-0.5) Absolute Lymphs (auto) (1.0-4.6) Absolute Monos (auto) (0.0-1.3) Lymphocytes % (24.0-44.0) % Monocytes % (0.0-12.0) % Eosinophils % (0.00-5.0) % Basophils % (0.0-0.4) % Absolute Granulocytes (1.4-6.9) Basophils # (0-0.4) Sodium 143 (137-145) mmol/L Potassium 3.9 (3.5-5.1) mmol/L Chloride 109 H (98-107) mmol/L Carbon Dioxide 20 L (22-30) mmol/L Anion Gap 17.6 H (5-15) MEQ/L BUN 7 L (9-20) mg/dL Creatinine 0.83 (0.66-1.25) mg/dL Estimated GFR > 60.0 ML/MIN Glucose 103 (74-106) mg/dL Calcium 8.3 L (8.4-10.2) mg/dL Total Bilirubin 1.00 (0.2-1.3) mg/dL AST 21 (17-59) U/L ALT 12 (0-50) U/L Alkaline Phosphatase 71 (38-126) U/L Serum Total Protein 7.2 (6.3-8.2) g/dL Albumin 4.5 (3.5-5.0) g/dL Urine Color (YELLOW) Urine Appearance (CLEAR) Urine pH (5-6) Ur Specific [place] (1.005-1.025) Urine Protein (Negative) Urine Ketones (NEGATIVE) Urine Blood (0-5) Manuel/ul Urine Nitrite (NEGATIVE) Urine Bilirubin (NEGATIVE) Urine Urobilinogen (0-1) mg/dL Ur Leukocyte Esterase (NEGATIVE) Urine WBC (Auto) (0-5) /HPF Urine RBC (Auto) (0-2) /HPF U Epithel Cells (Auto) (FEW) /HPF Urine Bacteria (Auto) (NEGATIVE) /HPF Urine Culture Reflexed (NO) Urine Glucose (NEGATIVE) mg/dL Salicylates (2-20) mg/dL Urine Opiates Level (NEGATIVE) Ur Methadone (NEGATIVE) Acetaminophen (10-30) ug/ml Urine Barbiturates (NEGATIVE) Ur Phencyclidine (PCP) (NEGATIVE) Urine Amphetamine (NEGATIVE) U Benzodiazepine Level (NEGATIVE) Urine Cocaine (NEGATIVE) Urine Marijuana (THC) (NEGATIVE) Ethyl Alcohol 170 H (0-10) mg/dL SARS-CoV-2 (PCR) (NEGATIVE) - Other Procedures and Tests Respiratory Therapy 05/09/21 03:57 Smoking Cessation Education ONCE Hospital Summary - Vitals & Intake/Output Vital Signs: Vital Signs Temperature 97.2 F 05/09/21 03:25 Pulse Rate 66 05/09/21 08:01 Respiratory Rate 16 05/09/21 07:28 Blood Pressure 91/37 05/09/21 08:01 O2 Sat by Pulse Oximetry 98 05/09/21 07:28 Intake & Output: Intake & Output 05/06/21 05/07/21 05/08/21 05/09/21 11:59 11:59 11:59 11:59 Intake Total 210 Output Total 100 Balance 110 Weight 59.4 kg - Lab Result Diagrams: 05/09/21 05:00 05/09/21 05:00 Lab Results-Last 24 Hrs: Lab Results-Last 24 Hours 05/09/21 05/09/21 05/09/21 Range/Units 00:30 00:30 00:38 WBC 5.7 (4.0-10.5) K/mm3 RBC 4.94 (4.1-5.6) M/mm3 Hgb 14.9 (12.5-18.0) gm/dl Hct 44.0 (42-50) % MCV 89.1 (78-100) fl MCH 30.2 (26-32) pg MCHC 33.9 (32-36) g/dl RDW 13.3 (11.5-14.0) % Plt Count 176 (150-450) K/mm3 MPV 10.5 (7.5-11.0) fl Gran % 52.8 (36.0-66.0) % Eos # (Auto) 0.10 (0-0.5) Absolute Lymphs (auto) 2.25 (1.0-4.6) Absolute Monos (auto) 0.31 (0.0-1.3) Lymphocytes % 39.5 (24.0-44.0) % Monocytes % 5.4 (0.0-12.0) % Eosinophils % 1.8 (0.00-5.0) % Basophils % 0.5 (0.0-0.4) % Absolute Granulocytes 3.00 (1.4-6.9) Basophils # 0.03 (0-0.4) Sodium 148 H (137-145) mmol/L Potassium 4.6 (3.5-5.1) mmol/L Chloride 109 H (98-107) mmol/L Carbon Dioxide 24 (22-30) mmol/L Anion Gap 19.8 H (5-15) MEQ/L BUN 7 L (9-20) mg/dL Creatinine 0.89 (0.66-1.25) mg/dL Estimated GFR > 60.0 ML/MIN Glucose 107 H (74-106) mg/dL Calcium 9.4 (8.4-10.2) mg/dL Total Bilirubin 1.10 (0.2-1.3) mg/dL AST 24 (17-59) U/L ALT 15 (0-50) U/L Alkaline Phosphatase 80 (38-126) U/L Serum Total Protein 8.2 (6.3-8.2) g/dL Albumin 5.1 H (3.5-5.0) g/dL Urine Color STRAW (YELLOW) Urine Appearance CLEAR (CLEAR) Urine pH 6.0 (5-6) Ur Specific [place] 1.003 (1.005-1.025) Urine Protein NEGATIVE (Negative) Urine Ketones NEGATIVE (NEGATIVE) Urine Blood NEGATIVE (0-5) Manuel/ul Urine Nitrite NEGATIVE (NEGATIVE) Urine Bilirubin NEGATIVE (NEGATIVE) Urine Urobilinogen NEGATIVE (0-1) mg/dL Ur Leukocyte Esterase NEGATIVE (NEGATIVE) Urine WBC (Auto) NONE (0-5) /HPF Urine RBC (Auto) NONE (0-2) /HPF U Epithel Cells (Auto) NONE (FEW) /HPF Urine Bacteria (Auto) NONE (NEGATIVE) /HPF Urine Culture Reflexed NO (NO) Urine Glucose NEGATIVE (NEGATIVE) mg/dL Salicylates < 1.0 L (2-20) mg/dL Urine Opiates Level (NEGATIVE) Ur Methadone (NEGATIVE) Acetaminophen < 10 L (10-30) ug/ml Urine Barbiturates (NEGATIVE) Ur Phencyclidine (PCP) (NEGATIVE) Urine Amphetamine (NEGATIVE) U Benzodiazepine Level (NEGATIVE) Urine Cocaine (NEGATIVE) Urine Marijuana (THC) (NEGATIVE) Ethyl Alcohol 250 H (0-10) mg/dL SARS-CoV-2 (PCR) (NEGATIVE) 05/09/21 05/09/21 05/09/21 Range/Units 00:38 01:41 05:00 WBC 4.6 (4.0-10.5) K/mm3 RBC 4.55 (4.1-5.6) M/mm3 Hgb 13.8 (12.5-18.0) gm/dl Hct 41.1 L (42-50) % MCV 90.3 (78-100) fl MCH 30.3 (26-32) pg MCHC 33.6 (32-36) g/dl RDW 13.4 (11.5-14.0) % Plt Count 165 (150-450) K/mm3 MPV 10.7 (7.5-11.0) fl Gran % 51.6 (36.0-66.0) % Eos # (Auto) 0.07 (0-0.5) Absolute Lymphs (auto) 1.88 (1.0-4.6) Absolute Monos (auto) 0.27 (0.0-1.3) Lymphocytes % 40.7 (24.0-44.0) % Monocytes % 5.8 (0.0-12.0) % Eosinophils % 1.5 (0.00-5.0) % Basophils % 0.4 (0.0-0.4) % Absolute Granulocytes 2.38 (1.4-6.9) Basophils # 0.02 (0-0.4) Sodium (137-145) mmol/L Potassium (3.5-5.1) mmol/L Chloride (98-107) mmol/L Carbon Dioxide (22-30) mmol/L Anion Gap (5-15) MEQ/L BUN (9-20) mg/dL Creatinine (0.66-1.25) mg/dL Estimated GFR ML/MIN Glucose (74-106) mg/dL Calcium (8.4-10.2) mg/dL Total Bilirubin (0.2-1.3) mg/dL AST (17-59) U/L ALT (0-50) U/L Alkaline Phosphatase (38-126) U/L Serum Total Protein (6.3-8.2) g/dL Albumin (3.5-5.0) g/dL Urine Color (YELLOW) Urine Appearance (CLEAR) Urine pH (5-6) Ur Specific [place] (1.005-1.025) Urine Protein (Negative) Urine Ketones (NEGATIVE) Urine Blood (0-5) Manuel/ul Urine Nitrite (NEGATIVE) Urine Bilirubin (NEGATIVE) Urine Urobilinogen (0-1) mg/dL Ur Leukocyte Esterase (NEGATIVE) Urine WBC (Auto) (0-5) /HPF Urine RBC (Auto) (0-2) /HPF U Epithel Cells (Auto) (FEW) /HPF Urine Bacteria (Auto) (NEGATIVE) /HPF Urine Culture Reflexed (NO) Urine Glucose (NEGATIVE) mg/dL Salicylates (2-20) mg/dL Urine Opiates Level NEGATIVE (NEGATIVE) Ur Methadone NEGATIVE (NEGATIVE) Acetaminophen (10-30) ug/ml Urine Barbiturates NEGATIVE (NEGATIVE) Ur Phencyclidine (PCP) NEGATIVE (NEGATIVE) Urine Amphetamine NEGATIVE (NEGATIVE) U Benzodiazepine Level NEGATIVE (NEGATIVE) Urine Cocaine NEGATIVE (NEGATIVE) Urine Marijuana (THC) POSITIVE (NEGATIVE) Ethyl Alcohol (0-10) mg/dL SARS-CoV-2 (PCR) NEGATIVE (NEGATIVE) 05/09/21 Range/Units 05:00 WBC (4.0-10.5) K/mm3 RBC (4.1-5.6) M/mm3 Hgb (12.5-18.0) gm/dl Hct (42-50) % MCV (78-100) fl MCH (26-32) pg MCHC (32-36) g/dl RDW (11.5-14.0) % Plt Count (150-450) K/mm3 MPV (7.5-11.0) fl Gran % (36.0-66.0) % Eos # (Auto) (0-0.5) Absolute Lymphs (auto) (1.0-4.6) Absolute Monos (auto) (0.0-1.3) Lymphocytes % (24.0-44.0) % Monocytes % (0.0-12.0) % Eosinophils % (0.00-5.0) % Basophils % (0.0-0.4) % Absolute Granulocytes (1.4-6.9) Basophils # (0-0.4) Sodium 143 (137-145) mmol/L Potassium 3.9 (3.5-5.1) mmol/L Chloride 109 H (98-107) mmol/L Carbon Dioxide 20 L (22-30) mmol/L Anion Gap 17.6 H (5-15) MEQ/L BUN 7 L (9-20) mg/dL Creatinine 0.83 (0.66-1.25) mg/dL Estimated GFR > 60.0 ML/MIN Glucose 103 (74-106) mg/dL Calcium 8.3 L (8.4-10.2) mg/dL Total Bilirubin 1.00 (0.2-1.3) mg/dL AST 21 (17-59) U/L ALT 12 (0-50) U/L Alkaline Phosphatase 71 (38-126) U/L Serum Total Protein 7.2 (6.3-8.2) g/dL Albumin 4.5 (3.5-5.0) g/dL Urine Color (YELLOW) Urine Appearance (CLEAR) Urine pH (5-6) Ur Specific [place] (1.005-1.025) Urine Protein (Negative) Urine Ketones (NEGATIVE) Urine Blood (0-5) Manuel/ul Urine Nitrite (NEGATIVE) Urine Bilirubin (NEGATIVE) Urine Urobilinogen (0-1) mg/dL Ur Leukocyte Esterase (NEGATIVE) Urine WBC (Auto) (0-5) /HPF Urine RBC (Auto) (0-2) /HPF U Epithel Cells (Auto) (FEW) /HPF Urine Bacteria (Auto) (NEGATIVE) /HPF Urine Culture Reflexed (NO) Urine Glucose (NEGATIVE) mg/dL Salicylates (2-20) mg/dL Urine Opiates Level (NEGATIVE) Ur Methadone (NEGATIVE) Acetaminophen (10-30) ug/ml Urine Barbiturates (NEGATIVE) Ur Phencyclidine (PCP) (NEGATIVE) Urine Amphetamine (NEGATIVE) U Benzodiazepine Level (NEGATIVE) Urine Cocaine (NEGATIVE) Urine Marijuana (THC) (NEGATIVE) Ethyl Alcohol 170 H (0-10) mg/dL SARS-CoV-2 (PCR) (NEGATIVE) - Procedures and Test Procedures and Tests throughout Hospitalization: Therapy Orders & Screens 05/09/21 03:57 Smoking Cessation Education ONCE Comment: Diagnosis: suicidal ideation/ETOH abuse Smoking Status: Current some day smoker How long have you smoked: 10 years Have you smoked in the past 12 months: Yes Approximately how many cigarettes per day: 1 Do you dip or chew tobacco: No If,Former Smoker,when did you quit: 2 yrs - Discharge Disposition: Home, Self-Care Condition: Stable Prescriptions: No Action No Reportable Medications [No Reported Medications] Follow up with: DOCTOR,NO FAMILY [Primary Care Provider] -
== END 2021-05-09 13:58 ==
LOC: ED 00:09 → ICU 02:56
PROVIDERS: ADMIT Family Medicine; ATTEND Family Medicine
DX: R45.851 Suicidal ideations (principal); F10.10 Alcohol abuse, uncomplicated; Z20.828 Contact with and (suspected) exposure to other viral communicable diseases
CPT/HCPCS: 36000; 36415; 80053; 80307; 81001; 85025; 96374; 99291; U0003; 93268; 99285; J2060; J2405; A9270-GY; G0378; G0480

== ENCOUNTER 2022-11-03 23:30 | Observation (INO) | payer BC ==
[2022-11-04] MEDS ORDERED: Sodium Chloride 0.9% 1000 ML 1,000 ML IV STA
--- NOTE | 2022-11-04 00:16 | ERPHSYRPT ---
- History of Present Illness Source: patient, other Exam Limitations: intoxication Patient Subjective Stated Complaint: pt states he took at least 14-15 pills out of a tylenol bottle Triage Nursing Assessment: pt answers questions. mood very labile, crying and laughing at times. pt uncooperative at times. respirations nonlabored. skin warm and dry. Timing/Duration: hour(s) (0.5), sudden Severity of Symptoms-Max: moderate Severity of Symptoms-Current: moderate Suicidal thoughts: ingestion Associated Symptoms: anxiety Hx Tetanus, Diphtheria Vaccination/Date Given: Yes Hx Influenza Vaccination/Date Given: No Hx Pneumococcal Vaccination/Date Given: No Immunizations Up to Date: Yes <WHITLEY ESPINOZA - Last Filed: 11/04/22 07:05> <RACHEL LARIOS - Last Filed: 11/04/22 08:07> - History of Present Illness Time Seen by Provider: 11/03/22 23:33 Physician History: 21-year-old presented in the ER with chief complaint of acetaminophen overdose. As per saran patient has been drinking since this afternoon and has taken 1415 500 mg acetaminophen pills almost half an hour prior to arrival. Patient is very anxious and hyperventilating, complaining of difficulty breathing. Saran reported patient was emotionally upset. No history of suicidal attempts in the past. Not a good historian and history is limited. (WHITLEY ESPINOZA) Allergies/Adverse Reactions: ammonia Allergy (Severe, Verified 11/04/22 00:07) Anaphylactic Reaction permethrin Allergy (Unknown, Verified 11/04/22 00:07) Swelling Home Medications: No Reportable Medications [No Reported Medications] 12/27/20 [History] Travel Risk - International Travel Have you traveled outside of the country in past 3 weeks: No - Coronavirus Screening Are you exhibiting any of the following symptoms?: Yes Symptoms: Cough: New Onset, Shortness of Breath, Vomiting/Diarrhea, Loss of Taste or Smell, Headaches/Body Aches/Fatigue Close contact with a COVID-19 positive Pt in past 14-21 Days: No - Vaccine Status Have you recieved a Covid-19 vaccination: Yes 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 - Vaccination Dates Date of 2cond Vaccination (if applicable): 2020 <WHITLEY ESPINOZA - Last Filed: 11/04/22 07:05> - Past Medical History Pertinent Past Medical History: Yes Neurological History: No Pertinent History ENT History: No Pertinent History Cardiac History: No Pertinent History Respiratory History: Asthma, Sleep Apnea Endocrine Medical History: No Pertinent History Musculoskeletal History: No Pertinent History GI Medical History: No Pertinent History History: No Pertinent History Psycho-Social History: Anxiety, Attention Deficit Disorder, Panic Disorder, Other Male Reproductive Disorders: No Pertinent History Other Medical History: anger issues, seperation anxiety - dad - Past Surgical History Past Surgical History: Yes Neuro Surgical History: No Pertinent History Cardiac: No Pertinent History Respiratory: No Pertinent History Gastrointestinal: No Pertinent History Genitourinary: No Pertinent History Musculoskeletal: No Pertinent History Male Surgical History: No Pertinent History Other Surgical History: TUBES IN EARS x 4 - Social History Smoking Status: Current every day smoker How long have you smoked: 10 years Exposure to second hand smoke: Yes Drug Use: marijuana Patient Lives Alone: No Significant Family History: no pertinent family hx <WHITLEY ESPINOZA Filed: 11/04/22 07:05> - Review of Systems Constitutional: No Symptoms Eyes: No Symptoms Ears, Nose, & Throat: No Symptoms Respiratory: Dyspnea Cardiac: No Symptoms Abdominal/Gastrointestinal: No Symptoms Genitourinary Symptoms: No Symptoms Musculoskeletal: No Symptoms Skin: No Symptoms Neurological: No Symptoms Psychological: Alcohol Abuse, Anxiety, Depression Endocrine: No Symptoms Hematologic/Lymphatic: No Symptoms Immunological/Allergic: No Symptoms <WHITLEY ESPINOZA Filed: 11/04/22 07:05> - Physical Exam General Appearance: no apparent distress, alert Eyes, Ears, Nose, Throat Exam: normal ENT inspection Neck Exam: normal inspection, non-tender, supple, full range of motion Respiratory Exam: normal breath sounds, lungs clear Cardiovascular Exam: normal heart sounds, tachycardia Gastrointestinal/Abdominal Exam: soft, normal bowel sounds, No tenderness Extremities Exam: normal inspection Neurological Exam: alert, carry out clerk II-XII nml as tested, oriented x 3, No normal mood/affect, No calm Appearance: No appropriate insight Behavior/Eye Contact/Speech: No alert & cooperative Thoughts/Hallucinations: no apparent hallucination, No normal thought pattern Skin Exam: normal color SpO2 Interpretation: normal SpO2: 100 O2 Delivery: Room Air <WHITLEY ESPINOZA Filed: 11/04/22 07:05> - Nursing Vital Signs Nursing Vital Signs: Initial Vital Signs Temperature 97.8 F 11/03/22 23:33 Pulse Rate 121 H 11/03/22 23:33 Respiratory Rate 18 11/03/22 23:33 Blood Pressure 145/92 11/03/22 23:33 O2 Sat by Pulse Oximetry 100 11/03/22 23:33 Pain Scale Pain Intensity 0 - Course Nursing assessment & vital signs reviewed: Yes <RIC,RACHEL - Last Filed: 11/04/22 08:07> Ordered Tests: Active Orders 24 hr Category Date Time Status EKG-ER Only STAT Care 11/04/22 00:00 Active IV Insertion STAT Care 11/04/22 00:00 Active NPO (ED) STAT Care 11/04/22 00:00 Active ACETAMINOPHEN Stat Lab 11/04/22 00:34 Completed ACETAMINOPHEN Stat Lab 11/04/22 04:21 Completed CBC W DIFF Stat Lab 11/04/22 00:34 Completed CMP Stat Lab 11/04/22 00:34 Completed ETHYL ALCOHOL Stat Lab 11/04/22 00:34 Completed ETHYL ALCOHOL Stat Lab 11/04/22 04:21 Completed Lactic Acid Stat Lab 11/04/22 01:20 Completed Lactic Acid Stat Lab 11/04/22 03:32 Completed PROTIME WITH INR Stat Lab 11/04/22 00:34 Completed SALICYLATE Stat Lab 11/04/22 00:34 Completed UA W/RFX CULTURE Stat Lab 11/04/22 00:32 Completed Urine Triage Profile Stat Lab 11/04/22 00:32 Completed Medication Summary Generic Name Dose Route Start Last Admin Trade Name Freq PRN Reason Stop Dose Admin Sodium Chloride 1,000 mls @ 125 mls/hr 11/04/22 02:00 11/04/22 02:07 Sodium Chloride 0.45% 1000 Ml IV 12/04/22 01:59 125 mls/hr .Q8H JOSTIN Administration Discontinued Medications Generic Name Dose Route Start Last Admin Trade Name Freq PRN Reason Stop Dose Admin Charcoal 50 g 11/04/22 01:43 11/04/22 02:06 Activated Charcoal Solution 50 G Bottle PO 11/04/22 01:44 50 g STAT ONE Administration Charcoal Confirm 11/04/22 01:47 Activated Charcoal Solution 50 G Bottle Administered 11/04/22 01:48 Dose 50 g .ROUTE .STK-MED ONE Charcoal Confirm 11/04/22 01:58 Activated Charcoal Solution 50 G Bottle Administered 11/04/22 01:59 Dose 50 g .ROUTE .STK-MED ONE Sodium Chloride 1,000 mls @ 999 mls/hr 11/04/22 00:00 11/04/22 05:31 Sodium Chloride 0.9% 1000 Ml IV 11/04/22 01:00 Infused .Q1H1M STA Infusion Sodium Chloride Confirm 11/04/22 00:33 Sodium Chloride 0.9% 1000 Ml Administered 11/04/22 00:34 Dose 1,000 mls @ ud .ROUTE .STK-MED ONE Ondansetron HCl 4 mg 11/04/22 02:11 11/04/22 02:13 Ondansetron Hcl 4 Mg/2 Ml Vial IV 11/04/22 02:12 4 mg STAT ONE Administration Ondansetron HCl Confirm 11/04/22 02:12 Ondansetron Hcl 4 Mg/2 Ml Vial Administered 11/04/22 02:13 Dose 4 mg .ROUTE .STK-MED ONE Lab/Rad Data: Laboratory Result Diagrams 11/04/22 00:34 11/04/22 00:34 Laboratory Results 11/04/22 11/04/22 11/04/22 Range/Units 04:21 03:32 01:20 WBC (4.0-10.5) x10^3/uL RBC (4.1-5.6) x10^6/uL Hgb (12.5-18.0) g/dL Hct (42-50) % MCV (78-100) fL MCH (26-32) pg MCHC (32-36) g/dL RDW (11.5-14.0) % Plt Count (150-450) x10^3/uL MPV (7.5-11.0) fL Gran % (36.0-66.0) % Immature Gran % (Auto) (0.00-0.4) % Nucleat RBC Rel Count (0.00-0.1) % Eos # (Auto) (0-0.5) x10^3/uL Immature Gran # (Auto) (0.00-0.03) x10^3u/L Absolute Lymphs (auto) (1.0-4.6) x10^3/uL Absolute Monos (auto) (0.0-1.3) x10^3/uL Absolute Nucleated RBC (0.00-0.01) x10^3u/L Lymphocytes % (24.0-44.0) % Monocytes % (0.0-12.0) % Eosinophils % (0.00-5.0) % Basophils % (0.0-0.4) % Absolute Granulocytes (1.4-6.9) x10^3/uL Basophils # (0-0.4) x10^3/uL PT (9.4-12.5) SECONDS INR (0.8-3.0) Sodium (137-145) mmol/L Potassium (3.5-5.1) mmol/L Chloride (98-107) mmol/L Carbon Dioxide (22-30) mmol/L Anion Gap (5-15) MEQ/L BUN (9-20) mg/dL Creatinine (0.66-1.25) mg/dL Estimated GFR ML/MIN Glucose (74-106) mg/dL Lactic Acid 1.3 2.4 H (0.4-2.0) Calcium (8.4-10.2) mg/dL Total Bilirubin (0.2-1.3) mg/dL AST (17-59) U/L ALT (0-50) U/L Alkaline Phosphatase (38-126) U/L Serum Total Protein (6.3-8.2) g/dL Albumin (3.5-5.0) g/dL Urinalys Dipstick Clnc Urine Color (YELLOW) Urine Appearance (CLEAR) Urine pH (5-6) Ur Specific [place] (1.005-1.025) POC Urine Protein Conf (Negative) Urine Ketones (NEGATIVE) Urine Nitrite (NEGATIVE) Urine Bilirubin (NEGATIVE) Urine Urobilinogen (0-1) mg/dL Urine Leukocytes (NEGATIVE) Urine WBC (Auto) (0-5) /HPF Urine RBC (Auto) (0-2) /HPF U Epithel Cells (Auto) (FEW) /HPF Urine Bacteria (Auto) (NEGATIVE) /HPF Urine RBC (0-5) Manuel/ul Ur Culture Indicated? Urine Glucose (NEGATIVE) mg/dL Salicylates (2-20) mg/dL Urine Opiates Level (NEGATIVE) Ur Methadone (NEGATIVE) Acetaminophen 96 H* (10-30) ug/ml Urine Barbiturates (NEGATIVE) Ur Phencyclidine (PCP) (NEGATIVE) Urine Amphetamine (NEGATIVE) U Benzodiazepine Level (NEGATIVE) Urine Cocaine (NEGATIVE) Urine Marijuana (THC) (NEGATIVE) Ethyl Alcohol 206 H (0-10) mg/dL 11/04/22 11/04/22 11/04/22 Range/Units 00:34 00:34 00:34 WBC 6.2 (4.0-10.5) x10^3/uL RBC 4.80 (4.1-5.6) x10^6/uL Hgb 15.0 (12.5-18.0) g/dL Hct 43.1 (42-50) % MCV 89.8 (78-100) fL MCH 31.3 (26-32) pg MCHC 34.8 (32-36) g/dL RDW 12.4 (11.5-14.0) % Plt Count 202 (150-450) x10^3/uL MPV 10.9 (7.5-11.0) fL Gran % 52.3 (36.0-66.0) % Immature Gran % (Auto) 0.3 (0.00-0.4) % Nucleat RBC Rel Count 0.0 (0.00-0.1) % Eos # (Auto) 0.09 (0-0.5) x10^3/uL Immature Gran # (Auto) 0.02 (0.00-0.03) x10^3u/L Absolute Lymphs (auto) 2.47 (1.0-4.6) x10^3/uL Absolute Monos (auto) 0.31 (0.0-1.3) x10^3/uL Absolute Nucleated RBC 0.00 (0.00-0.01) x10^3u/L Lymphocytes % 40.1 (24.0-44.0) % Monocytes % 5.0 (0.0-12.0) % Eosinophils % 1.5 (0.00-5.0) % Basophils % 0.8 (0.0-0.4) % Absolute Granulocytes 3.22 (1.4-6.9) x10^3/uL Basophils # 0.05 (0-0.4) x10^3/uL PT 10.9 (9.4-12.5) SECONDS INR 1.03 (0.8-3.0) Sodium 147 H (137-145) mmol/L Potassium 3.6 (3.5-5.1) mmol/L Chloride 113 H (98-107) mmol/L Carbon Dioxide 17 L (22-30) mmol/L Anion Gap 20.1 H (5-15) MEQ/L BUN 7 L (9-20) mg/dL Creatinine 0.74 (0.66-1.25) mg/dL Estimated GFR > 60.0 ML/MIN Glucose 109 H (74-106) mg/dL Lactic Acid (0.4-2.0) Calcium 9.3 (8.4-10.2) mg/dL Total Bilirubin 1.40 H (0.2-1.3) mg/dL AST 45 (17-59) U/L ALT 25 (0-50) U/L Alkaline Phosphatase 98 (38-126) U/L Serum Total Protein 9.1 H (6.3-8.2) g/dL Albumin 5.4 H (3.5-5.0) g/dL Urinalys Dipstick Clnc Urine Color (YELLOW) Urine Appearance (CLEAR) Urine pH (5-6) Ur Specific [place] (1.005-1.025) POC Urine Protein Conf (Negative) Urine Ketones (NEGATIVE) Urine Nitrite (NEGATIVE) Urine Bilirubin (NEGATIVE) Urine Urobilinogen (0-1) mg/dL Urine Leukocytes (NEGATIVE) Urine WBC (Auto) (0-5) /HPF Urine RBC (Auto) (0-2) /HPF U Epithel Cells (Auto) (FEW) /HPF Urine Bacteria (Auto) (NEGATIVE) /HPF Urine RBC (0-5) Manuel/ul Ur Culture Indicated? Urine Glucose (NEGATIVE) mg/dL Salicylates < 1.0 L (2-20) mg/dL Urine Opiates Level (NEGATIVE) Ur Methadone (NEGATIVE) Acetaminophen 145 H* (10-30) ug/ml Urine Barbiturates (NEGATIVE) Ur Phencyclidine (PCP) (NEGATIVE) Urine Amphetamine (NEGATIVE) U Benzodiazepine Level (NEGATIVE) Urine Cocaine (NEGATIVE) Urine Marijuana (THC) (NEGATIVE) Ethyl Alcohol 272 H (0-10) mg/dL 11/04/22 11/04/22 Range/Units 00:32 00:32 WBC (4.0-10.5) x10^3/uL RBC (4.1-5.6) x10^6/uL Hgb (12.5-18.0) g/dL Hct (42-50) % MCV (78-100) fL MCH (26-32) pg MCHC (32-36) g/dL RDW (11.5-14.0) % Plt Count (150-450) x10^3/uL MPV (7.5-11.0) fL Gran % (36.0-66.0) % Immature Gran % (Auto) (0.00-0.4) % Nucleat RBC Rel Count (0.00-0.1) % Eos # (Auto) (0-0.5) x10^3/uL Immature Gran # (Auto) (0.00-0.03) x10^3u/L Absolute Lymphs (auto) (1.0-4.6) x10^3/uL Absolute Monos (auto) (0.0-1.3) x10^3/uL Absolute Nucleated RBC (0.00-0.01) x10^3u/L Lymphocytes % (24.0-44.0) % Monocytes % (0.0-12.0) % Eosinophils % (0.00-5.0) % Basophils % (0.0-0.4) % Absolute Granulocytes (1.4-6.9) x10^3/uL Basophils # (0-0.4) x10^3/uL PT (9.4-12.5) SECONDS INR (0.8-3.0) Sodium (137-145) mmol/L Potassium (3.5-5.1) mmol/L Chloride (98-107) mmol/L Carbon Dioxide (22-30) mmol/L Anion Gap (5-15) MEQ/L BUN (9-20) mg/dL Creatinine (0.66-1.25) mg/dL Estimated GFR ML/MIN Glucose (74-106) mg/dL Lactic Acid (0.4-2.0) Calcium (8.4-10.2) mg/dL Total Bilirubin (0.2-1.3) mg/dL AST (17-59) U/L ALT (0-50) U/L Alkaline Phosphatase (38-126) U/L Serum Total Protein (6.3-8.2) g/dL Albumin (3.5-5.0) g/dL Urinalys Dipstick Clnc MAIN LAB Urine Color LT.YELLOW (YELLOW) Urine Appearance CLEAR (CLEAR) Urine pH 6.5 (5-6) Ur Specific [place] 1.010 (1.005-1.025) POC Urine Protein Conf NEGATIVE (Negative) Urine Ketones NEGATIVE (NEGATIVE) Urine Nitrite NEGATIVE (NEGATIVE) Urine Bilirubin NEGATIVE (NEGATIVE) Urine Urobilinogen 0.2 (0-1) mg/dL Urine Leukocytes NEGATIVE (NEGATIVE) Urine WBC (Auto) NONE (0-5) /HPF Urine RBC (Auto) NONE (0-2) /HPF U Epithel Cells (Auto) NONE (FEW) /HPF Urine Bacteria (Auto) NONE SEEN (NEGATIVE) /HPF Urine RBC NEGATIVE (0-5) Manuel/ul Ur Culture Indicated? NO Urine Glucose NEGATIVE (NEGATIVE) mg/dL Salicylates (2-20) mg/dL Urine Opiates Level NEGATIVE (NEGATIVE) Ur Methadone NEGATIVE (NEGATIVE) Acetaminophen (10-30) ug/ml Urine Barbiturates NEGATIVE (NEGATIVE) Ur Phencyclidine (PCP) NEGATIVE (NEGATIVE) Urine Amphetamine NEGATIVE (NEGATIVE) U Benzodiazepine Level NEGATIVE (NEGATIVE) Urine Cocaine NEGATIVE (NEGATIVE) Urine Marijuana (THC) POSITIVE (NEGATIVE) Ethyl Alcohol (0-10) mg/dL <WHITLEY ESPINOZA - Last Filed: 11/04/22 07:05> - Progress Progress: unchanged Discussed with : Floyd Counseled pt/family regarding: drug and/or alcohol abuse, lab results, diag nosis, need for follow-up, rad results, smoking cessation <RACHEL LARIOS - Last Filed: 11/04/22 08:07> - Progress Progress Note: 11/04/22 00:15 Was not controlled is called, recommended for of Tylenol level, did not recommend activated charcoal. 11/04/22 05:04 Patient refused activated charcoal, initial Tylenol level was 145, discussed with poison control, did not recommend any intervention and repeat Tylenol at 4- hour is 95. No intervention needed now. Given fluids for hydration. Patient blood alcohol is still high and 200s. Cannot be medically cleared. 11/04/22 07:05 Patient cannot be medically cleared, care is transferred to at shift change. (WHITLEY ESPINOZA) <WHITLEY ESPINOZA - Last Filed: 11/04/22 07:05> - Departure Departure Disposition: Observation Critical Care Time: Yes Critical Care Time(excluding separately billable procedures): Critical 30-74 mins <RACHEL LARIOS - Last Filed: 11/04/22 08:07> - Departure Clinical Impression: Suicidal ideation, Anxiety as acute reaction to exceptional stress Alcohol intoxication Qualifiers: Complication of substance-induced condition: with unspecified complication Qualified Code(s): F10.929 - Alcohol use, unspecified with intoxication, unspecified Overdose on Tylenol Qualifiers: Encounter type: initial encounter Injury intent: intentional self-harm Qualified Code(s): T39.1X2A - Poisoning by 4-Aminophenol derivatives, intentional self-harm, initial encounter Condition: Fair Referrals: DOCTOR,NO FAMILY [Primary Care Provider] - Follow up/PCP as directed
[2022-11-04] MEDS ORDERED: Sodium Chloride 0.9% 1000 ML 1,000 ML ONE (00:33)
[2022-11-04 00:39] LABS: Absolute Neutrophil Ct (ANC) 3.22 x10^3/uL (1.4-6.9); Basophil (Absolute #) 0.05 x10^3/uL (0-0.4); Eosinophil % 1.5 % (0.00-5.0); Eosinophil (Absolute #) 0.09 x10^3/uL (0-0.5); Hematocrit 43.1 % (42-50); Lymphocyte (Absolute #) 2.47 x10^3/uL (1.0-4.6); Lymphocytes % 40.1 % (24.0-44.0); Mean Cell Volume 89.8 fL (78-100); Mean Corpuscular Hemoglobin 31.3 pg (26-32); Mean Corpuscular Hgb Concent. 34.8 g/dL (32-36); Mean Platelet Volume 10.9 fL (7.5-11.0); Monocyte (Absolute #) 0.31 x10^3/uL (0.0-1.3); Neutrophil % 52.3 % (36.0-66.0); Platelet Count 202 x10^3/uL (150-450); Red Cell Distribution Width 12.4 % (11.5-14.0); White Blood Count 6.2 x10^3/uL (4.0-10.5)
[2022-11-04 00:52] LABS: INR 1.03 (0.8-3.0); PROTIME 10.9 SECONDS (9.4-12.5)
[2022-11-04 00:54] LABS: ALBUMIN 5.4 g/dL (3.5-5.0); ALKALINE PHOSPHATASE 98 U/L (38-126); ANION GAP 20.1 MEQ/L (5-15); BLOOD UREA NITROGEN 7 mg/dL (9-20); CHLORIDE 113 mmol/L (98-107); Calcium 9.3 mg/dL (8.4-10.2); Carbon Dioxide 17 mmol/L (22-30); Creatinine 1 0.74 mg/dL (0.66-1.25); EST GLOMERULAR FILTRATION RATE > 60.0 ML/MIN; ETHYL ALCOHOL 272 mg/dL (0-10); Glucose 109 mg/dL (74-106); Potassium 3.6 mmol/L (3.5-5.1); SALICYLATE < 1.0 mg/dL (2-20); SGOT/AST 45 U/L (17-59); SGPT/ALT 25 U/L (0-50); SODIUM 147 mmol/L (137-145); Total Protein 9.1 g/dL (6.3-8.2)
[2022-11-04 01:05] LABS: ACETAMINOPHEN 145 ug/ml (10-30)
[2022-11-04] MEDS ORDERED: LIQUI-CHAR 50 GM PO ONE (01:43)
[2022-11-04 01:46] LABS: Appearance CLEAR (CLEAR); Bilirubin NEGATIVE (NEGATIVE); Dipstick done @ ? MAIN LAB; Glucose NEGATIVE (NEGATIVE); Ketones NEGATIVE (NEGATIVE); Nitrite NEGATIVE (NEGATIVE); Ph 6.5 (5-6); Protein,Urine Dip NEGATIVE (Negative); RBC NEGATIVE Ery/ul (0-5); Urobilinogen 0.2 mg/dL (0-1)
[2022-11-04 01:47] LABS: Bacteria NONE SEEN /HPF (NEGATIVE); Urine Cultured Indicated? NO
[2022-11-04] MEDS ORDERED: LIQUI-CHAR 50 GM ONE ×2 (01:47→01:58)
[2022-11-04 02:00] LABS: Amphetamine,Urine NEGATIVE (NEGATIVE); Barbiturate,Urine NEGATIVE (NEGATIVE); Benzodiazepine,Urine NEGATIVE (NEGATIVE); Cocaine,Urine NEGATIVE (NEGATIVE); Methadone,Urine NEGATIVE (NEGATIVE); Opiate,Urine NEGATIVE (NEGATIVE); PCP,Urine NEGATIVE (NEGATIVE); THC,Urine POSITIVE (NEGATIVE)
[2022-11-04] MEDS ORDERED: Zofran 4 MG/2 ML VIAL IV ONE (02:11)
[2022-11-04] MEDS ORDERED: Zofran 4 MG/2 ML VIAL ONE (02:12)
[2022-11-04 04:36] LABS: ETHYL ALCOHOL 206 mg/dL (0-10)
[2022-11-04 04:43] LABS: ACETAMINOPHEN 96 ug/ml (10-30)
[2022-11-04 09:03] LABS: INFLUENZA A NEGATIVE (NEGATIVE); INFLUENZA B NEGATIVE (NEGATIVE); RESPIRATORY SYNCTIAL VIRUS NEGATIVE (Negative); SARS-CoV-2 Xpert Express NEGATIVE (NEGATIVE)
[2022-11-04] MEDS ORDERED: Sodium Chloride 0.9% 1000 ML 1,000 ML IV SCH (11:39)
[2022-11-04 13:23] LABS: ACETAMINOPHEN 33 ug/ml (10-30); ETHYL ALCOHOL 79 mg/dL (0-10)
[2022-11-04] MEDS ORDERED: FLUZONE QUAD 2022-2023 SYRINGE IM ONE (18:00)
--- NOTE | 2022-11-04 18:17 | PCM.SSS ---
History of Present Illness - Chief Complaint Chief Complaint: suicidal ideation, tylenol overdose, alcohol intoxication History of Present Illness: is a 21 year old male.with chief complaint of acetaminophen overdose. As per firobinson patient has been drinking since this afternoon and has taken 1415 500 mg acetaminophen pills almost half an hour prior to arrival. Patient is very anxious and hyperventilating, complaining of difficulty breathing. Fianc reported patient was emotionally upset. No history of suicidal attempts in the past. - Review of Systems Constitutional: No Fever, No Chills Eyes: No Symptoms Ears, Nose, & Throat: No Symptoms Respiratory: No Cough, No Short Of Breath Cardiac: No Chest Pain, No Edema, No Syncope Abdominal/Gastrointestinal: No Abdominal Pain, No Nausea, No Vomiting, No Diarrhea Genitourinary Symptoms: No Dysuria Musculoskeletal: No Back Pain, No Neck Pain Skin: No Rash Neurological: No Dizziness, No Focal Weakness, No Sensory Changes Psychological: Alcohol Abuse, Anxiety, Depression, Suicidal Ideations, Emotional Lability Endocrine: No Symptoms Hematologic/Lymphatic: No Symptoms Immunological/Allergic: No Symptoms Medications & Allergies Home Medications: Home Medication List No Reportable Medications [No Reported Medications] 12/27/20 [History Confirmed 11/04/22] Allergies/Adverse Reactions: Allergies Allergy/AdvReac Type Severity Reaction Status Date / Time ammonia Allergy Severe Anaphylactic Verified 11/04/22 00:07 Reaction permethrin Allergy Unknown Swelling Verified 11/04/22 00:07 - Past Medical History Past Medical History: Yes Neurological History: No Pertinent History ENT History: No Pertinent History Cardiac History: No Pertinent History Respiratory History: Asthma, Sleep Apnea Endocrine Medical History: No Pertinent History Musculoskelatal History: No Pertinent History GI Medical History: No Pertinent History History: No Pertinent History Pyscho-Social History: Anxiety, Attention Deficit Disorder, Panic Disorder, Other Male Reproductive Disorders: No Pertinent History Comment: anger issues, seperation anxiety, depression and past suicidal ideation and attmepts "mainly with pills" - Past Surgical History Past Surgical History: Yes Neuro Surgical History: No Pertinent History Cardiac History: No Pertinent History Respiratory Surgery: No Pertinent History GI Surgical History: No Pertinent History Genitourinary Surgical Hx: No Pertinent History Musculskeletal Surgical Hx: No Pertinent History Male Surgical History: No Pertinent History Other Surgical History: TUBES IN EARS x 4 - Social History Smoking Status: Current every day smoker How long have you smoked: 10 years Exposure to second hand smoke: Yes Alcohol: Weekly Drug Use: marijuana Significant Family History: no pertinent family hx - Physical Exam Vital Signs: Vital Signs - 24 hr Temp Pulse Resp BP Pulse Ox 11/04/22 16:00 97.8 F 64 16 126/78 94 L 11/04/22 13:35 98.2 F 82 18 132/70 99 11/04/22 11:20 98.2 F 70 20 114/68 98 11/04/22 08:22 97.8 F 78 18 108/60 98 11/04/22 07:41 97.8 F 83 20 110/74 98 11/04/22 07:05 100 11/04/22 03:55 94 H 16 108/80 98 11/04/22 02:36 97 H 16 97/45 98 11/03/22 23:33 97.8 F 121 H 18 145/92 100 General Appearance: no apparent distress, alert Neurologic Exam: alert, oriented x 3, cooperative, normal mood/affect, nml cerebellar function, nml station & gait, sensation nml, No motor deficits Eye Exam: PERRL/EOMI, eyes nml inspection Ears, Nose, Throat Exam: normal ENT inspection, TMs normal, pharynx normal, mois t mucous membranes Neck Exam: normal inspection, non-tender, supple, full range of motion Respiratory Exam: normal breath sounds, lungs clear, No respiratory distress Cardiovascular Exam: regular rate/rhythm, normal heart sounds, normal peripheral pulses Gastrointestinal/Abdomen Exam: soft, normal bowel sounds, No tenderness, No mass Back Exam: normal inspection, normal range of motion, No CVA tenderness, No vertebral tenderness Extremity Exam: normal inspection, normal range of motion, pelvis stable Skin Exam: normal color, warm, dry, No rash Lymphatic Exam: No adenopathy Results - Labs Lab/Micro Results: Lab Results-Last 24 Hours 11/04/22 11/04/22 11/04/22 Range/Units 00:32 00:32 00:34 WBC 6.2 (4.0-10.5) x10^3/uL RBC 4.80 (4.1-5.6) x10^6/uL Hgb 15.0 (12.5-18.0) g/dL Hct 43.1 (42-50) % MCV 89.8 (78-100) fL MCH 31.3 (26-32) pg MCHC 34.8 (32-36) g/dL RDW 12.4 (11.5-14.0) % Plt Count 202 (150-450) x10^3/uL MPV 10.9 (7.5-11.0) fL Gran % 52.3 (36.0-66.0) % Immature Gran % (Auto) 0.3 (0.00-0.4) % Nucleat RBC Rel Count 0.0 (0.00-0.1) % Eos # (Auto) 0.09 (0-0.5) x10^3/uL Immature Gran # (Auto) 0.02 (0.00-0.03) x10^3u/L Absolute Lymphs (auto) 2.47 (1.0-4.6) x10^3/uL Absolute Monos (auto) 0.31 (0.0-1.3) x10^3/uL Absolute Nucleated RBC 0.00 (0.00-0.01) x10^3u/L Lymphocytes % 40.1 (24.0-44.0) % Monocytes % 5.0 (0.0-12.0) % Eosinophils % 1.5 (0.00-5.0) % Basophils % 0.8 (0.0-0.4) % Absolute Granulocytes 3.22 (1.4-6.9) x10^3/uL Basophils # 0.05 (0-0.4) x10^3/uL PT (9.4-12.5) SECONDS INR (0.8-3.0) Sodium (137-145) mmol/L Potassium (3.5-5.1) mmol/L Chloride (98-107) mmol/L Carbon Dioxide (22-30) mmol/L Anion Gap (5-15) MEQ/L BUN (9-20) mg/dL Creatinine (0.66-1.25) mg/dL Estimated GFR ML/MIN Glucose (74-106) mg/dL Lactic Acid (0.4-2.0) Calcium (8.4-10.2) mg/dL Total Bilirubin (0.2-1.3) mg/dL AST (17-59) U/L ALT (0-50) U/L Alkaline Phosphatase (38-126) U/L Serum Total Protein (6.3-8.2) g/dL Albumin (3.5-5.0) g/dL Urinalys Dipstick Clnc MAIN LAB Urine Color LT.YELLOW (YELLOW) Urine Appearance CLEAR (CLEAR) Urine pH 6.5 (5-6) Ur Specific [place] 1.010 (1.005-1.025) POC Urine Protein Conf NEGATIVE (Negative) Urine Ketones NEGATIVE (NEGATIVE) Urine Nitrite NEGATIVE (NEGATIVE) Urine Bilirubin NEGATIVE (NEGATIVE) Urine Urobilinogen 0.2 (0-1) mg/dL Urine Leukocytes NEGATIVE (NEGATIVE) Urine WBC (Auto) NONE (0-5) /HPF Urine RBC (Auto) NONE (0-2) /HPF U Epithel Cells (Auto) NONE (FEW) /HPF Urine Bacteria (Auto) NONE SEEN (NEGATIVE) /HPF Urine RBC NEGATIVE (0-5) Manuel/ul Ur Culture Indicated? NO Urine Glucose NEGATIVE (NEGATIVE) mg/dL Salicylates (2-20) mg/dL Urine Opiates Level NEGATIVE (NEGATIVE) Ur Methadone NEGATIVE (NEGATIVE) Acetaminophen (10-30) ug/ml Urine Barbiturates NEGATIVE (NEGATIVE) Ur Phencyclidine (PCP) NEGATIVE (NEGATIVE) Urine Amphetamine NEGATIVE (NEGATIVE) U Benzodiazepine Level NEGATIVE (NEGATIVE) Urine Cocaine NEGATIVE (NEGATIVE) Urine Marijuana (THC) POSITIVE (NEGATIVE) Ethyl Alcohol (0-10) mg/dL Influenza Type A Ag (NEGATIVE) Influenza Type B Ag (NEGATIVE) RSV (PCR) (Negative) SARS-CoV-2 (PCR) (NEGATIVE) 11/04/22 11/04/22 11/04/22 Range/Units 00:34 00:34 01:20 WBC (4.0-10.5) x10^3/uL RBC (4.1-5.6) x10^6/uL Hgb (12.5-18.0) g/dL Hct (42-50) % MCV (78-100) fL MCH (26-32) pg MCHC (32-36) g/dL RDW (11.5-14.0) % Plt Count (150-450) x10^3/uL MPV (7.5-11.0) fL Gran % (36.0-66.0) % Immature Gran % (Auto) (0.00-0.4) % Nucleat RBC Rel Count (0.00-0.1) % Eos # (Auto) (0-0.5) x10^3/uL Immature Gran # (Auto) (0.00-0.03) x10^3u/L Absolute Lymphs (auto) (1.0-4.6) x10^3/uL Absolute Monos (auto) (0.0-1.3) x10^3/uL Absolute Nucleated RBC (0.00-0.01) x10^3u/L Lymphocytes % (24.0-44.0) % Monocytes % (0.0-12.0) % Eosinophils % (0.00-5.0) % Basophils % (0.0-0.4) % Absolute Granulocytes (1.4-6.9) x10^3/uL Basophils # (0-0.4) x10^3/uL PT 10.9 (9.4-12.5) SECONDS INR 1.03 (0.8-3.0) Sodium 147 H (137-145) mmol/L Potassium 3.6 (3.5-5.1) mmol/L Chloride 113 H (98-107) mmol/L Carbon Dioxide 17 L (22-30) mmol/L Anion Gap 20.1 H (5-15) MEQ/L BUN 7 L (9-20) mg/dL Creatinine 0.74 (0.66-1.25) mg/dL Estimated GFR > 60.0 ML/MIN Glucose 109 H (74-106) mg/dL Lactic Acid 2.4 H (0.4-2.0) Calcium 9.3 (8.4-10.2) mg/dL Total Bilirubin 1.40 H (0.2-1.3) mg/dL AST 45 (17-59) U/L ALT 25 (0-50) U/L Alkaline Phosphatase 98 (38-126) U/L Serum Total Protein 9.1 H (6.3-8.2) g/dL Albumin 5.4 H (3.5-5.0) g/dL Urinalys Dipstick Clnc Urine Color (YELLOW) Urine Appearance (CLEAR) Urine pH (5-6) Ur Specific [place] (1.005-1.025) POC Urine Protein Conf (Negative) Urine Ketones (NEGATIVE) Urine Nitrite (NEGATIVE) Urine Bilirubin (NEGATIVE) Urine Urobilinogen (0-1) mg/dL Urine Leukocytes (NEGATIVE) Urine WBC (Auto) (0-5) /HPF Urine RBC (Auto) (0-2) /HPF U Epithel Cells (Auto) (FEW) /HPF Urine Bacteria (Auto) (NEGATIVE) /HPF Urine RBC (0-5) Manuel/ul Ur Culture Indicated? Urine Glucose (NEGATIVE) mg/dL Salicylates < 1.0 L (2-20) mg/dL Urine Opiates Level (NEGATIVE) Ur Methadone (NEGATIVE) Acetaminophen 145 H* (10-30) ug/ml Urine Barbiturates (NEGATIVE) Ur Phencyclidine (PCP) (NEGATIVE) Urine Amphetamine (NEGATIVE) U Benzodiazepine Level (NEGATIVE) Urine Cocaine (NEGATIVE) Urine Marijuana (THC) (NEGATIVE) Ethyl Alcohol 272 H (0-10) mg/dL Influenza Type A Ag (NEGATIVE) Influenza Type B Ag (NEGATIVE) RSV (PCR) (Negative) SARS-CoV-2 (PCR) (NEGATIVE) 11/04/22 11/04/22 11/04/22 Range/Units 03:32 04:21 08:29 WBC (4.0-10.5) x10^3/uL RBC (4.1-5.6) x10^6/uL Hgb (12.5-18.0) g/dL Hct (42-50) % MCV (78-100) fL MCH (26-32) pg MCHC (32-36) g/dL RDW (11.5-14.0) % Plt Count (150-450) x10^3/uL MPV (7.5-11.0) fL Gran % (36.0-66.0) % Immature Gran % (Auto) (0.00-0.4) % Nucleat RBC Rel Count (0.00-0.1) % Eos # (Auto) (0-0.5) x10^3/uL Immature Gran # (Auto) (0.00-0.03) x10^3u/L Absolute Lymphs (auto) (1.0-4.6) x10^3/uL Absolute Monos (auto) (0.0-1.3) x10^3/uL Absolute Nucleated RBC (0.00-0.01) x10^3u/L Lymphocytes % (24.0-44.0) % Monocytes % (0.0-12.0) % Eosinophils % (0.00-5.0) % Basophils % (0.0-0.4) % Absolute Granulocytes (1.4-6.9) x10^3/uL Basophils # (0-0.4) x10^3/uL PT (9.4-12.5) SECONDS INR (0.8-3.0) Sodium (137-145) mmol/L Potassium (3.5-5.1) mmol/L Chloride (98-107) mmol/L Carbon Dioxide (22-30) mmol/L Anion Gap (5-15) MEQ/L BUN (9-20) mg/dL Creatinine (0.66-1.25) mg/dL Estimated GFR ML/MIN Glucose (74-106) mg/dL Lactic Acid 1.3 (0.4-2.0) Calcium (8.4-10.2) mg/dL Total Bilirubin (0.2-1.3) mg/dL AST (17-59) U/L ALT (0-50) U/L Alkaline Phosphatase (38-126) U/L Serum Total Protein (6.3-8.2) g/dL Albumin (3.5-5.0) g/dL Urinalys Dipstick Clnc Urine Color (YELLOW) Urine Appearance (CLEAR) Urine pH (5-6) Ur Specific [place] (1.005-1.025) POC Urine Protein Conf (Negative) Urine Ketones (NEGATIVE) Urine Nitrite (NEGATIVE) Urine Bilirubin (NEGATIVE) Urine Urobilinogen (0-1) mg/dL Urine Leukocytes (NEGATIVE) Urine WBC (Auto) (0-5) /HPF Urine RBC (Auto) (0-2) /HPF U Epithel Cells (Auto) (FEW) /HPF Urine Bacteria (Auto) (NEGATIVE) /HPF Urine RBC (0-5) Manuel/ul Ur Culture Indicated? Urine Glucose (NEGATIVE) mg/dL Salicylates (2-20) mg/dL Urine Opiates Level (NEGATIVE) Ur Methadone (NEGATIVE) Acetaminophen 96 H* (10-30) ug/ml Urine Barbiturates (NEGATIVE) Ur Phencyclidine (PCP) (NEGATIVE) Urine Amphetamine (NEGATIVE) U Benzodiazepine Level (NEGATIVE) Urine Cocaine (NEGATIVE) Urine Marijuana (THC) (NEGATIVE) Ethyl Alcohol 206 H (0-10) mg/dL Influenza Type A Ag NEGATIVE (NEGATIVE) Influenza Type B Ag NEGATIVE (NEGATIVE) RSV (PCR) NEGATIVE (Negative) SARS-CoV-2 (PCR) NEGATIVE (NEGATIVE) 11/04/22 Range/Units 13:00 WBC (4.0-10.5) x10^3/uL RBC (4.1-5.6) x10^6/uL Hgb (12.5-18.0) g/dL Hct (42-50) % MCV (78-100) fL MCH (26-32) pg MCHC (32-36) g/dL RDW (11.5-14.0) % Plt Count (150-450) x10^3/uL MPV (7.5-11.0) fL Gran % (36.0-66.0) % Immature Gran % (Auto) (0.00-0.4) % Nucleat RBC Rel Count (0.00-0.1) % Eos # (Auto) (0-0.5) x10^3/uL Immature Gran # (Auto) (0.00-0.03) x10^3u/L Absolute Lymphs (auto) (1.0-4.6) x10^3/uL Absolute Monos (auto) (0.0-1.3) x10^3/uL Absolute Nucleated RBC (0.00-0.01) x10^3u/L Lymphocytes % (24.0-44.0) % Monocytes % (0.0-12.0) % Eosinophils % (0.00-5.0) % Basophils % (0.0-0.4) % Absolute Granulocytes (1.4-6.9) x10^3/uL Basophils # (0-0.4) x10^3/uL PT (9.4-12.5) SECONDS INR (0.8-3.0) Sodium (137-145) mmol/L Potassium (3.5-5.1) mmol/L Chloride (98-107) mmol/L Carbon Dioxide (22-30) mmol/L Anion Gap (5-15) MEQ/L BUN (9-20) mg/dL Creatinine (0.66-1.25) mg/dL Estimated GFR ML/MIN Glucose (74-106) mg/dL Lactic Acid (0.4-2.0) Calcium (8.4-10.2) mg/dL Total Bilirubin (0.2-1.3) mg/dL AST (17-59) U/L ALT (0-50) U/L Alkaline Phosphatase (38-126) U/L Serum Total Protein (6.3-8.2) g/dL Albumin (3.5-5.0) g/dL Urinalys Dipstick Clnc Urine Color (YELLOW) Urine Appearance (CLEAR) Urine pH (5-6) Ur Specific [place] (1.005-1.025) POC Urine Protein Conf (Negative) Urine Ketones (NEGATIVE) Urine Nitrite (NEGATIVE) Urine Bilirubin (NEGATIVE) Urine Urobilinogen (0-1) mg/dL Urine Leukocytes (NEGATIVE) Urine WBC (Auto) (0-5) /HPF Urine RBC (Auto) (0-2) /HPF U Epithel Cells (Auto) (FEW) /HPF Urine Bacteria (Auto) (NEGATIVE) /HPF Urine RBC (0-5) Manuel/ul Ur Culture Indicated? Urine Glucose (NEGATIVE) mg/dL Salicylates (2-20) mg/dL Urine Opiates Level (NEGATIVE) Ur Methadone (NEGATIVE) Acetaminophen 33 H (10-30) ug/ml Urine Barbiturates (NEGATIVE) Ur Phencyclidine (PCP) (NEGATIVE) Urine Amphetamine (NEGATIVE) U Benzodiazepine Level (NEGATIVE) Urine Cocaine (NEGATIVE) Urine Marijuana (THC) (NEGATIVE) Ethyl Alcohol 79 H (0-10) mg/dL Influenza Type A Ag (NEGATIVE) Influenza Type B Ag (NEGATIVE) RSV (PCR) (Negative) SARS-CoV-2 (PCR) (NEGATIVE) Assessment/Plan (1) Alcohol intoxication Current Visit: Yes Status: Acute Qualifiers: Complication of substance-induced condition: with unspecified complication Qualified Code(s): F10.929 - Alcohol use, unspecified with intoxication, unspecified (2) Overdose on Tylenol Current Visit: Yes Status: Acute Qualifiers: Encounter type: initial encounter Injury intent: intentional self-harm Qualified Code(s): T39.1X2A - Poisoning by 4-Aminophenol derivatives, intentional self-harm, initial encounter Code(s): T39.1X1A - POISONING BY 4-AMINOPHENOL DERIVATIVES, ACCIDENTAL, INIT (3) Suicidal ideation Current Visit: Yes Status: Acute Code(s): R45.851 - SUICIDAL IDEATIONS Hospital Summary - Hospital Course Hospital Course: Chief Complaint Diagnosis suicidal ideation, tylenol overdose, alcohol intoxication Allergies Allergy/AdvReac Type Severity Reaction Status Date / Time ammonia Allergy Severe Anaphylactic Verified 11/04/22 00:07 Reaction permethrin Allergy Unknown Swelling Verified 11/04/22 00:07 Vital Signs (Last 24 hours) Temp Pulse Resp BP Pulse Ox 11/04/22 16:00 97.8 F 64 16 126/78 94 L 11/04/22 13:35 98.2 F 82 18 132/70 99 11/04/22 11:20 98.2 F 70 20 114/68 98 11/04/22 08:22 97.8 F 78 18 108/60 98 11/04/22 07:41 97.8 F 83 20 110/74 98 11/04/22 07:05 100 11/04/22 03:55 94 H 16 108/80 98 11/04/22 02:36 97 H 16 97/45 98 11/03/22 23:33 97.8 F 121 H 18 145/92 100 Current Medications Generic Name Dose Route Start Last Admin Trade Name Freq PRN Reason Stop Dose Admin Sodium Chloride 1,000 mls @ 100 mls/hr 11/04/22 11:39 Sodium Chloride 0.9% 1000 Ml IV 12/04/22 11:38 .Q10H JOSTIN Discontinued Medications Generic Name Dose Route Start Last Admin Trade Name Freq PRN Reason Stop Dose Admin Charcoal 50 g 11/04/22 01:43 11/04/22 02:06 Activated Charcoal Solution 50 G Bottle PO 11/04/22 01:44 50 g STAT ONE Administration Charcoal Confirm 11/04/22 01:47 Activated Charcoal Solution 50 G Bottle Administered 11/04/22 01:48 Dose 50 g .ROUTE .STK-MED ONE Charcoal Confirm 11/04/22 01:58 Activated Charcoal Solution 50 G Bottle Administered 11/04/22 01:59 Dose 50 g .ROUTE .STK-MED ONE Sodium Chloride 1,000 mls @ 999 mls/hr 11/04/22 00:00 11/04/22 05:31 Sodium Chloride 0.9% 1000 Ml IV 11/04/22 01:00 Infused .Q1H1M STA Infusion Sodium Chloride Confirm 11/04/22 00:33 Sodium Chloride 0.9% 1000 Ml Administered 11/04/22 00:34 Dose 1,000 mls @ ud .ROUTE .STK-MED ONE Sodium Chloride 1,000 mls @ 125 mls/hr 11/04/22 02:00 11/04/22 10:50 Sodium Chloride 0.45% 1000 Ml IV 12/04/22 01:59 125 mls/hr .Q8H JOSTIN Administration Sodium Chloride Confirm 11/04/22 01:58 Sodium Chloride 0.45% 1000 Ml Administered 11/04/22 01:59 Dose 1,000 mls @ ud IV .STK-MED ONE Sodium Chloride Confirm 11/04/22 10:46 Sodium Chloride 0.45% 1000 Ml Administered 11/04/22 10:47 Dose 1,000 mls @ ud IV .STK-MED ONE Ondansetron HCl 4 mg 11/04/22 02:11 11/04/22 02:13 Ondansetron Hcl 4 Mg/2 Ml Vial IV 11/04/22 02:12 4 mg STAT ONE Administration Ondansetron HCl Confirm 11/04/22 02:12 Ondansetron Hcl 4 Mg/2 Ml Vial Administered 11/04/22 02:13 Dose 4 mg .ROUTE .STK-MED ONE Intake & Output (Last 24 hours) 11/02/22 11/03/22 11/04/22 11/05/22 11:59 11:59 11:59 11:59 Intake Total 360 Balance 360 Weight 66.769 kg 64.9 kg Laboratory Results (Last 24 hours) 11/04/22 11/04/22 11/04/22 13:00 08:29 04:21 WBC RBC Hgb Hct MCV MCH MCHC RDW Plt Count MPV Gran % Immature Gran % (Auto) Nucleat RBC Rel Count Eos # (Auto) Immature Gran # (Auto) Absolute Lymphs (auto) Absolute Monos (auto) Absolute Nucleated RBC Lymphocytes % Monocytes % Eosinophils % Basophils % Absolute Granulocytes Basophils # PT INR Sodium Potassium Chloride Carbon Dioxide Anion Gap BUN Creatinine Estimated GFR Glucose Lactic Acid Calcium Total Bilirubin AST ALT Alkaline Phosphatase Serum Total Protein Albumin Urinalys Dipstick Clnc Urine Color Urine Appearance Urine pH Ur Specific [place] POC Urine Protein Conf Urine Ketones Urine Nitrite Urine Bilirubin Urine Urobilinogen Urine Leukocytes Urine WBC (Auto) Urine RBC (Auto) U Epithel Cells (Auto) Urine Bacteria (Auto) Urine RBC Ur Culture Indicated? Urine Glucose Salicylates Urine Opiates Level Ur Methadone Acetaminophen 33 H 96 H* Urine Barbiturates Ur Phencyclidine (PCP) Urine Amphetamine U Benzodiazepine Level Urine Cocaine Urine Marijuana (THC) Ethyl Alcohol 79 H 206 H Influenza Type A Ag NEGATIVE Influenza Type B Ag NEGATIVE RSV (PCR) NEGATIVE SARS-CoV-2 (PCR) NEGATIVE 11/04/22 11/04/22 11/04/22 03:32 01:20 00:34 WBC RBC Hgb Hct MCV MCH MCHC RDW Plt Count MPV Gran % Immature Gran % (Auto) Nucleat RBC Rel Count Eos # (Auto) Immature Gran # (Auto) Absolute Lymphs (auto) Absolute Monos (auto) Absolute Nucleated RBC Lymphocytes % Monocytes % Eosinophils % Basophils % Absolute Granulocytes Basophils # PT 10.9 INR 1.03 Sodium Potassium Chloride Carbon Dioxide Anion Gap BUN Creatinine Estimated GFR Glucose Lactic Acid 1.3 2.4 H Calcium Total Bilirubin AST ALT Alkaline Phosphatase Serum Total Protein Albumin Urinalys Dipstick Clnc Urine Color Urine Appearance Urine pH Ur Specific [place] POC Urine Protein Conf Urine Ketones Urine Nitrite Urine Bilirubin Urine Urobilinogen Urine Leukocytes Urine WBC (Auto) Urine RBC (Auto) U Epithel Cells (Auto) Urine Bacteria (Auto) Urine RBC Ur Culture Indicated? Urine Glucose Salicylates Urine Opiates Level Ur Methadone Acetaminophen Urine Barbiturates Ur Phencyclidine (PCP) Urine Amphetamine U Benzodiazepine Level Urine Cocaine Urine Marijuana (THC) Ethyl Alcohol Influenza Type A Ag Influenza Type B Ag RSV (PCR) SARS-CoV-2 (PCR) 11/04/22 11/04/22 11/04/22 00:34 00:34 00:32 WBC 6.2 RBC 4.80 Hgb 15.0 Hct 43.1 MCV 89.8 MCH 31.3 MCHC 34.8 RDW 12.4 Plt Count 202 MPV 10.9 Gran % 52.3 Immature Gran % (Auto) 0.3 Nucleat RBC Rel Count 0.0 Eos # (Auto) 0.09 Immature Gran # (Auto) 0.02 Absolute Lymphs (auto) 2.47 Absolute Monos (auto) 0.31 Absolute Nucleated RBC 0.00 Lymphocytes % 40.1 Monocytes % 5.0 Eosinophils % 1.5 Basophils % 0.8 Absolute Granulocytes 3.22 Basophils # 0.05 PT INR Sodium 147 H Potassium 3.6 Chloride 113 H Carbon Dioxide 17 L Anion Gap 20.1 H BUN 7 L Creatinine 0.74 Estimated GFR > 60.0 Glucose 109 H Lactic Acid Calcium 9.3 Total Bilirubin 1.40 H AST 45 ALT 25 Alkaline Phosphatase 98 Serum Total Protein 9.1 H Albumin 5.4 H Urinalys Dipstick Clnc MAIN LAB Urine Color LT.YELLOW Urine Appearance CLEAR Urine pH 6.5 Ur Specific [place] 1.010 POC Urine Protein Conf NEGATIVE Urine Ketones NEGATIVE Urine Nitrite NEGATIVE Urine Bilirubin NEGATIVE Urine Urobilinogen 0.2 Urine Leukocytes NEGATIVE Urine WBC (Auto) NONE Urine RBC (Auto) NONE U Epithel Cells (Auto) NONE Urine Bacteria (Auto) NONE SEEN Urine RBC NEGATIVE Ur Culture Indicated? NO Urine Glucose NEGATIVE Salicylates < 1.0 L Urine Opiates Level Ur Methadone Acetaminophen 145 H* Urine Barbiturates Ur Phencyclidine (PCP) Urine Amphetamine U Benzodiazepine Level Urine Cocaine Urine Marijuana (THC) Ethyl Alcohol 272 H Influenza Type A Ag Influenza Type B Ag RSV (PCR) SARS-CoV-2 (PCR) 11/04/22 00:32 WBC RBC Hgb Hct MCV MCH MCHC RDW Plt Count MPV Gran % Immature Gran % (Auto) Nucleat RBC Rel Count Eos # (Auto) Immature Gran # (Auto) Absolute Lymphs (auto) Absolute Monos (auto) Absolute Nucleated RBC Lymphocytes % Monocytes % Eosinophils % Basophils % Absolute Granulocytes Basophils # PT INR Sodium Potassium Chloride Carbon Dioxide Anion Gap BUN Creatinine Estimated GFR Glucose Lactic Acid Calcium Total Bilirubin AST ALT Alkaline Phosphatase Serum Total Protein Albumin Urinalys Dipstick Clnc Urine Color Urine Appearance Urine pH Ur Specific [place] POC Urine Protein Conf Urine Ketones Urine Nitrite Urine Bilirubin Urine Urobilinogen Urine Leukocytes Urine WBC (Auto) Urine RBC (Auto) U Epithel Cells (Auto) Urine Bacteria (Auto) Urine RBC Ur Culture Indicated? Urine Glucose Salicylates Urine Opiates Level NEGATIVE Ur Methadone NEGATIVE Acetaminophen Urine Barbiturates NEGATIVE Ur Phencyclidine (PCP) NEGATIVE Urine Amphetamine NEGATIVE U Benzodiazepine Level NEGATIVE Urine Cocaine NEGATIVE Urine Marijuana (THC) POSITIVE Ethyl Alcohol Influenza Type A Ag Influenza Type B Ag RSV (PCR) SARS-CoV-2 (PCR) Orders (Last 24 hours) Category Date Time Status Up Ad [place]i ROUTINE Activity 11/04/22 11:39 Active Code Status Order ROUTINE Care 11/04/22 11:39 Active EKG-ER Only STAT Care 11/04/22 00:00 Completed Fall Protocol Q1H Care 11/04/22 11:39 Active IV Care Q6H Care 11/04/22 11:39 Active IV Insertion STAT Care 11/04/22 00:00 Completed NPO (ED) STAT Care 11/04/22 00:00 Completed Neuro Checks Q4H Care 11/04/22 11:[address] in Observation ROUTINE Care 11/04/22 11:39 Active Tele-Health Consult ROUTINE Cons 11/04/22 11:39 Active House Regular Diet Diet 11/04/22 Lunch Active ACETAMINOPHEN Routine Lab 11/04/22 13:00 Completed ACETAMINOPHEN Stat Lab 11/04/22 00:34 Completed ACETAMINOPHEN Stat Lab 11/04/22 04:21 Completed CBC W DIFF Stat Lab 11/04/22 00:34 Completed CMP Stat Lab 11/04/22 00:34 Completed COVID/FLU/RSV Panel Stat Lab 11/04/22 08:29 Completed ETHYL ALCOHOL Routine Lab 11/04/22 13:00 Completed ETHYL ALCOHOL Stat Lab 11/04/22 00:34 Completed ETHYL ALCOHOL Stat Lab 11/04/22 04:21 Completed Lactic Acid Stat Lab 11/04/22 01:20 Completed Lactic Acid Stat Lab 11/04/22 03:32 Completed PROTIME WITH INR Stat Lab 11/04/22 00:34 Completed SALICYLATE Stat Lab 11/04/22 00:34 Completed UA W/RFX CULTURE Stat Lab 11/04/22 00:32 Completed Urine Triage Profile Stat Lab 11/04/22 00:32 Completed Charcoal/Aqueous 50 GM [Liqui-Yoon 50 gm] Med 11/04/22 01:47 Discontinued 50 g .ROUTE .STK-MED ONE Charcoal/Aqueous 50 GM [Liqui-Yoon 50 gm] Med 11/04/22 01:58 Discontinued 50 g .ROUTE .STK-MED ONE Charcoal/Aqueous 50 GM [Liqui-Yoon 50 gm] Med 11/04/22 01:43 Discontinued 50 g PO STAT ONE Flu Vacc [id number]([id number] Up)/Pf [Fluzone Quad Med 11/04/22 18:00 Discontinued Syringe] 60 mcg IM .ONCE ONE NaCl 0.45% 1000 ml [Sodium Chloride 0.45% 1000 ML] 1, Med 11/04/22 02:00 Discontinued 000 ml IV 125 mls/hr NaCl 0.45% 1000 ml [Sodium Chloride 0.45% 1000 ML] 1, Med 11/04/22 01:58 Discontinued 000 ml IV UD NaCl 0.45% 1000 ml [Sodium Chloride 0.45% 1000 ML] 1, Med 11/04/22 10:46 Discontinued 000 ml IV UD NaCl 0.9% 1000 ml [Sodium Chloride 0.9% 1000 ML] 1,000 Med 11/04/22 00:33 Discontinued ml .ROUTE UD NaCl 0.9% 1000 ml [Sodium Chloride 0.9% 1000 ML] 1,000 Med 11/04/22 11:39 Active ml IV 100 mls/hr NaCl 0.9% 1000 ml [Sodium Chloride 0.9% 1000 ML] 1,000 Med 11/04/22 00:00 Discontinued ml IV 999 mls/hr Ondansetron HCl 4 mg/2 ml [Zofran 4 MG/2 ML VIAL] Med 11/04/22 02:12 Discontinued 4 mg .ROUTE .STK-MED ONE Ondansetron HCl 4 mg/2 ml [Zofran 4 MG/2 ML VIAL] Med 11/04/22 02:11 Discontinued 4 mg IV STAT ONE Smoking Cessation Education ONCE RT 11/04/22 13:45 Completed Transfer Order Routine Transfer 11/04/22 Completed Patient Care Notes (Last 24 hours) 11/04/22 17:30 (created 11/04/22 17:32) Nursing Note by Vanesa Mixon with [facility] is starting Consult at this time. Initialized on 11/04/22 17:32 - END OF NOTE 11/04/22 16:42 (created 11/04/22 16:43) Nursing Note by Vanesa Mixon from [facility] called and said we will be hearing from Marlene Tyler soon via [employer]. Initialized on 11/04/22 16:43 - END OF NOTE 11/04/22 16:22 (created 11/04/22 16:30) Nursing Note by Vanesa Mixon I faxed patients chart to [facility] [phone].[email or web address]/[email or web address] called and spoke to [facility]. Initialized on 11/04/22 16:30 - END OF NOTE - Vitals & Intake/Output Vital Signs: Vital Signs Temperature 97.8 F 11/04/22 16:00 Pulse Rate 64 11/04/22 16:00 Respiratory Rate 16 11/04/22 16:00 Blood Pressure 126/78 11/04/22 16:00 O2 Sat by Pulse Oximetry 94 L 11/04/22 16:00 Intake & Output: Intake & Output 11/02/22 11/03/22 11/04/22 11/05/22 11:59 11:59 11:59 11:59 Intake Total 360 Balance 360 Weight 66.769 kg 64.9 kg - Lab Result Diagrams: 11/04/22 00:34 11/04/22 00:34 Lab Results-Last 24 Hrs: Lab Results-Last 24 Hours 11/04/22 11/04/22 11/04/22 Range/Units 00:32 00:32 00:34 WBC 6.2 (4.0-10.5) x10^3/uL RBC 4.80 (4.1-5.6) x10^6/uL Hgb 15.0 (12.5-18.0) g/dL Hct 43.1 (42-50) % MCV 89.8 (78-100) fL MCH 31.3 (26-32) pg MCHC 34.8 (32-36) g/dL RDW 12.4 (11.5-14.0) % Plt Count 202 (150-450) x10^3/uL MPV 10.9 (7.5-11.0) fL Gran % 52.3 (36.0-66.0) % Immature Gran % (Auto) 0.3 (0.00-0.4) % Nucleat RBC Rel Count 0.0 (0.00-0.1) % Eos # (Auto) 0.09 (0-0.5) x10^3/uL Immature Gran # (Auto) 0.02 (0.00-0.03) x10^3u/L Absolute Lymphs (auto) 2.47 (1.0-4.6) x10^3/uL Absolute Monos (auto) 0.31 (0.0-1.3) x10^3/uL Absolute Nucleated RBC 0.00 (0.00-0.01) x10^3u/L Lymphocytes % 40.1 (24.0-44.0) % Monocytes % 5.0 (0.0-12.0) % Eosinophils % 1.5 (0.00-5.0) % Basophils % 0.8 (0.0-0.4) % Absolute Granulocytes 3.22 (1.4-6.9) x10^3/uL Basophils # 0.05 (0-0.4) x10^3/uL PT (9.4-12.5) SECONDS INR (0.8-3.0) Sodium (137-145) mmol/L Potassium (3.5-5.1) mmol/L Chloride (98-107) mmol/L Carbon Dioxide (22-30) mmol/L Anion Gap (5-15) MEQ/L BUN (9-20) mg/dL Creatinine (0.66-1.25) mg/dL Estimated GFR ML/MIN Glucose (74-106) mg/dL Lactic Acid (0.4-2.0) Calcium (8.4-10.2) mg/dL Total Bilirubin (0.2-1.3) mg/dL AST (17-59) U/L ALT (0-50) U/L Alkaline Phosphatase (38-126) U/L Serum Total Protein (6.3-8.2) g/dL Albumin (3.5-5.0) g/dL Urinalys Dipstick Clnc MAIN LAB Urine Color LT.YELLOW (YELLOW) Urine Appearance CLEAR (CLEAR) Urine pH 6.5 (5-6) Ur Specific [place] 1.010 (1.005-1.025) POC Urine Protein Conf NEGATIVE (Negative) Urine Ketones NEGATIVE (NEGATIVE) Urine Nitrite NEGATIVE (NEGATIVE) Urine Bilirubin NEGATIVE (NEGATIVE) Urine Urobilinogen 0.2 (0-1) mg/dL Urine Leukocytes NEGATIVE (NEGATIVE) Urine WBC (Auto) NONE (0-5) /HPF Urine RBC (Auto) NONE (0-2) /HPF U Epithel Cells (Auto) NONE (FEW) /HPF Urine Bacteria (Auto) NONE SEEN (NEGATIVE) /HPF Urine RBC NEGATIVE (0-5) Manuel/ul Ur Culture Indicated? NO Urine Glucose NEGATIVE (NEGATIVE) mg/dL Salicylates (2-20) mg/dL Urine Opiates Level NEGATIVE (NEGATIVE) Ur Methadone NEGATIVE (NEGATIVE) Acetaminophen (10-30) ug/ml Urine Barbiturates NEGATIVE (NEGATIVE) Ur Phencyclidine (PCP) NEGATIVE (NEGATIVE) Urine Amphetamine NEGATIVE (NEGATIVE) U Benzodiazepine Level NEGATIVE (NEGATIVE) Urine Cocaine NEGATIVE (NEGATIVE) Urine Marijuana (THC) POSITIVE (NEGATIVE) Ethyl Alcohol (0-10) mg/dL Influenza Type A Ag (NEGATIVE) Influenza Type B Ag (NEGATIVE) RSV (PCR) (Negative) SARS-CoV-2 (PCR) (NEGATIVE) 11/04/22 11/04/22 11/04/22 Range/Units 00:34 00:34 01:20 WBC (4.0-10.5) x10^3/uL RBC (4.1-5.6) x10^6/uL Hgb (12.5-18.0) g/dL Hct (42-50) % MCV (78-100) fL MCH (26-32) pg MCHC (32-36) g/dL RDW (11.5-14.0) % Plt Count (150-450) x10^3/uL MPV (7.5-11.0) fL Gran % (36.0-66.0) % Immature Gran % (Auto) (0.00-0.4) % Nucleat RBC Rel Count (0.00-0.1) % Eos # (Auto) (0-0.5) x10^3/uL Immature Gran # (Auto) (0.00-0.03) x10^3u/L Absolute Lymphs (auto) (1.0-4.6) x10^3/uL Absolute Monos (auto) (0.0-1.3) x10^3/uL Absolute Nucleated RBC (0.00-0.01) x10^3u/L Lymphocytes % (24.0-44.0) % Monocytes % (0.0-12.0) % Eosinophils % (0.00-5.0) % Basophils % (0.0-0.4) % Absolute Granulocytes (1.4-6.9) x10^3/uL Basophils # (0-0.4) x10^3/uL PT 10.9 (9.4-12.5) SECONDS INR 1.03 (0.8-3.0) Sodium 147 H (137-145) mmol/L Potassium 3.6 (3.5-5.1) mmol/L Chloride 113 H (98-107) mmol/L Carbon Dioxide 17 L (22-30) mmol/L Anion Gap 20.1 H (5-15) MEQ/L BUN 7 L (9-20) mg/dL Creatinine 0.74 (0.66-1.25) mg/dL Estimated GFR > 60.0 ML/MIN Glucose 109 H (74-106) mg/dL Lactic Acid 2.4 H (0.4-2.0) Calcium 9.3 (8.4-10.2) mg/dL Total Bilirubin 1.40 H (0.2-1.3) mg/dL AST 45 (17-59) U/L ALT 25 (0-50) U/L Alkaline Phosphatase 98 (38-126) U/L Serum Total Protein 9.1 H (6.3-8.2) g/dL Albumin 5.4 H (3.5-5.0) g/dL Urinalys Dipstick Clnc Urine Color (YELLOW) Urine Appearance (CLEAR) Urine pH (5-6) Ur Specific [place] (1.005-1.025) POC Urine Protein Conf (Negative) Urine Ketones (NEGATIVE) Urine Nitrite (NEGATIVE) Urine Bilirubin (NEGATIVE) Urine Urobilinogen (0-1) mg/dL Urine Leukocytes (NEGATIVE) Urine WBC (Auto) (0-5) /HPF Urine RBC (Auto) (0-2) /HPF U Epithel Cells (Auto) (FEW) /HPF Urine Bacteria (Auto) (NEGATIVE) /HPF Urine RBC (0-5) Manuel/ul Ur Culture Indicated? Urine Glucose (NEGATIVE) mg/dL Salicylates < 1.0 L (2-20) mg/dL Urine Opiates Level (NEGATIVE) Ur Methadone (NEGATIVE) Acetaminophen 145 H* (10-30) ug/ml Urine Barbiturates (NEGATIVE) Ur Phencyclidine (PCP) (NEGATIVE) Urine Amphetamine (NEGATIVE) U Benzodiazepine Level (NEGATIVE) Urine Cocaine (NEGATIVE) Urine Marijuana (THC) (NEGATIVE) Ethyl Alcohol 272 H (0-10) mg/dL Influenza Type A Ag (NEGATIVE) Influenza Type B Ag (NEGATIVE) RSV (PCR) (Negative) SARS-CoV-2 (PCR) (NEGATIVE) 11/04/22 11/04/22 11/04/22 Range/Units 03:32 04:21 08:29 WBC (4.0-10.5) x10^3/uL RBC (4.1-5.6) x10^6/uL Hgb (12.5-18.0) g/dL Hct (42-50) % MCV (78-100) fL MCH (26-32) pg MCHC (32-36) g/dL RDW (11.5-14.0) % Plt Count (150-450) x10^3/uL MPV (7.5-11.0) fL Gran % (36.0-66.0) % Immature Gran % (Auto) (0.00-0.4) % Nucleat RBC Rel Count (0.00-0.1) % Eos # (Auto) (0-0.5) x10^3/uL Immature Gran # (Auto) (0.00-0.03) x10^3u/L Absolute Lymphs (auto) (1.0-4.6) x10^3/uL Absolute Monos (auto) (0.0-1.3) x10^3/uL Absolute Nucleated RBC (0.00-0.01) x10^3u/L Lymphocytes % (24.0-44.0) % Monocytes % (0.0-12.0) % Eosinophils % (0.00-5.0) % Basophils % (0.0-0.4) % Absolute Granulocytes (1.4-6.9) x10^3/uL Basophils # (0-0.4) x10^3/uL PT (9.4-12.5) SECONDS INR (0.8-3.0) Sodium (137-145) mmol/L Potassium (3.5-5.1) mmol/L Chloride (98-107) mmol/L Carbon Dioxide (22-30) mmol/L Anion Gap (5-15) MEQ/L BUN (9-20) mg/dL Creatinine (0.66-1.25) mg/dL Estimated GFR ML/MIN Glucose (74-106) mg/dL Lactic Acid 1.3 (0.4-2.0) Calcium (8.4-10.2) mg/dL Total Bilirubin (0.2-1.3) mg/dL AST (17-59) U/L ALT (0-50) U/L Alkaline Phosphatase (38-126) U/L Serum Total Protein (6.3-8.2) g/dL Albumin (3.5-5.0) g/dL Urinalys Dipstick Clnc Urine Color (YELLOW) Urine Appearance (CLEAR) Urine pH (5-6) Ur Specific [place] (1.005-1.025) POC Urine Protein Conf (Negative) Urine Ketones (NEGATIVE) Urine Nitrite (NEGATIVE) Urine Bilirubin (NEGATIVE) Urine Urobilinogen (0-1) mg/dL Urine Leukocytes (NEGATIVE) Urine WBC (Auto) (0-5) /HPF Urine RBC (Auto) (0-2) /HPF U Epithel Cells (Auto) (FEW) /HPF Urine Bacteria (Auto) (NEGATIVE) /HPF Urine RBC (0-5) Manuel/ul Ur Culture Indicated? Urine Glucose (NEGATIVE) mg/dL Salicylates (2-20) mg/dL Urine Opiates Level (NEGATIVE) Ur Methadone (NEGATIVE) Acetaminophen 96 H* (10-30) ug/ml Urine Barbiturates (NEGATIVE) Ur Phencyclidine (PCP) (NEGATIVE) Urine Amphetamine (NEGATIVE) U Benzodiazepine Level (NEGATIVE) Urine Cocaine (NEGATIVE) Urine Marijuana (THC) (NEGATIVE) Ethyl Alcohol 206 H (0-10) mg/dL Influenza Type A Ag NEGATIVE (NEGATIVE) Influenza Type B Ag NEGATIVE (NEGATIVE) RSV (PCR) NEGATIVE (Negative) SARS-CoV-2 (PCR) NEGATIVE (NEGATIVE) 11/04/22 Range/Units 13:00 WBC (4.0-10.5) x10^3/uL RBC (4.1-5.6) x10^6/uL Hgb (12.5-18.0) g/dL Hct (42-50) % MCV (78-100) fL MCH (26-32) pg MCHC (32-36) g/dL RDW (11.5-14.0) % Plt Count (150-450) x10^3/uL MPV (7.5-11.0) fL Gran % (36.0-66.0) % Immature Gran % (Auto) (0.00-0.4) % Nucleat RBC Rel Count (0.00-0.1) % Eos # (Auto) (0-0.5) x10^3/uL Immature Gran # (Auto) (0.00-0.03) x10^3u/L Absolute Lymphs (auto) (1.0-4.6) x10^3/uL Absolute Monos (auto) (0.0-1.3) x10^3/uL Absolute Nucleated RBC (0.00-0.01) x10^3u/L Lymphocytes % (24.0-44.0) % Monocytes % (0.0-12.0) % Eosinophils % (0.00-5.0) % Basophils % (0.0-0.4) % Absolute Granulocytes (1.4-6.9) x10^3/uL Basophils # (0-0.4) x10^3/uL PT (9.4-12.5) SECONDS INR (0.8-3.0) Sodium (137-145) mmol/L Potassium (3.5-5.1) mmol/L Chloride (98-107) mmol/L Carbon Dioxide (22-30) mmol/L Anion Gap (5-15) MEQ/L BUN (9-20) mg/dL Creatinine (0.66-1.25) mg/dL Estimated GFR ML/MIN Glucose (74-106) mg/dL Lactic Acid (0.4-2.0) Calcium (8.4-10.2) mg/dL Total Bilirubin (0.2-1.3) mg/dL AST (17-59) U/L ALT (0-50) U/L Alkaline Phosphatase (38-126) U/L Serum Total Protein (6.3-8.2) g/dL Albumin (3.5-5.0) g/dL Urinalys Dipstick Clnc Urine Color (YELLOW) Urine Appearance (CLEAR) Urine pH (5-6) Ur Specific [place] (1.005-1.025) POC Urine Protein Conf (Negative) Urine Ketones (NEGATIVE) Urine Nitrite (NEGATIVE) Urine Bilirubin (NEGATIVE) Urine Urobilinogen (0-1) mg/dL Urine Leukocytes (NEGATIVE) Urine WBC (Auto) (0-5) /HPF Urine RBC (Auto) (0-2) /HPF U Epithel Cells (Auto) (FEW) /HPF Urine Bacteria (Auto) (NEGATIVE) /HPF Urine RBC (0-5) Manuel/ul Ur Culture Indicated? Urine Glucose (NEGATIVE) mg/dL Salicylates (2-20) mg/dL Urine Opiates Level (NEGATIVE) Ur Methadone (NEGATIVE) Acetaminophen 33 H (10-30) ug/ml Urine Barbiturates (NEGATIVE) Ur Phencyclidine (PCP) (NEGATIVE) Urine Amphetamine (NEGATIVE) U Benzodiazepine Level (NEGATIVE) Urine Cocaine (NEGATIVE) Urine Marijuana (THC) (NEGATIVE) Ethyl Alcohol 79 H (0-10) mg/dL Influenza Type A Ag (NEGATIVE) Influenza Type B Ag (NEGATIVE) RSV (PCR) (Negative) SARS-CoV-2 (PCR) (NEGATIVE) - Procedures and Test Procedures and Tests throughout Hospitalization: Therapy Orders & Screens 11/04/22 13:45 Smoking Cessation Education ONCE Comment: Diagnosis: suicidal ideation, tylenol overdose, alcohol intoxication Smoking Status: Current every day smoker How long have you smoked: 10 years Have you smoked in the past 12 months: Yes Approximately how many cigarettes per day: 1 Do you dip or chew tobacco: No If,Former Smoker,when did you quit: 2 yrs - Discharge Discharge Date: 11/04/[address] [facility] Condition: Stable Prescriptions: No Action No Reportable Medications [No Reported Medications] Follow up with: DOCTOR,NO FAMILY [Primary Care Provider] - - Nursing Vital Signs Nursing Vital Signs: Initial Vital Signs Temperature 97.8 F 11/03/22 23:33 Pulse Rate 121 H 11/03/22 23:33 Respiratory Rate 18 11/03/22 23:33 Blood Pressure 145/92 11/03/22 23:33 O2 Sat by Pulse Oximetry 100 11/03/22 23:33 Pain Scale Pain Intensity 0 - Physical Exam General Appearance: no apparent distress Eyes, Ears, Nose, Throat Exam: normal ENT inspection, moist mucous membranes Neck Exam: normal inspection, non-tender, supple Respiratory Exam: normal breath sounds, lungs clear, No respiratory distress Cardiovascular Exam: regular rate/rhythm, No edema Gastrointestinal/Abdominal Exam: soft, No tenderness, No distention Extremities Exam: normal inspection, normal range of motion, No evidence of injury, No edema Current Suicidality: denies suicide plan Neurological Exam: alert, 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
[2022-11-04 19:52] VITALS: BP 131/79; PULSE 71; O2SAT 99
== END 2022-11-04 19:35 ==
LOC: ED 23:30 → ICU 11-04 11:29
PROVIDERS: ADMIT General Practice; ATTEND General Practice
DX: F10.929 Alcohol use, unspecified with intoxication, unspecified (principal); T39.1X2A Poisoning by 4-Aminophenol derivatives, intentional self-harm, initial encounter; R45.851 Suicidal ideations; F41.9 Anxiety disorder, unspecified; Z20.828 Contact with and (suspected) exposure to other viral communicable diseases; Z72.0 Tobacco use
CPT/HCPCS: 0241U; 36000; 36415; 80053; 80307; 81015; 83605; 85025; 85610; 90791; 93005; 96360; 96361; 96374; 99285; 99291; G0008; G0378; Q3014; 90686; J2405; G0480

== ENCOUNTER 2024-06-04 13:33 | Emergency (ER) | payer BC, OTHER ==
[2024-06-04 13:48] VITALS: BP 120/78; PULSE 93; TEMP 97.6; O2SAT 98
--- NOTE | 2024-06-04 14:58 | XRAY ---
Indication: Pain. Comparison: None 2 view right hand obtained. No bony, articular, or soft tissue abnormalities.
--- NOTE | 2024-06-04 15:15 | ERPHSYRPT ---
- History of Present Illness Time Seen by Provider: 06/04/24 13:37 Source: patient Exam Limitations: no limitations Patient Subjective Stated Complaint: Pt was fighting off a bee and hit his/her right hand on the car Triage Nursing Assessment: Pt was brought to the ER by his/her boyfriend, vitals wnl, rates pain as 7/10, right dorsal hand pain between the 4th and 5th finger, no swelling or bruising noted, doesn't apear to be in any distress Physician History: 23 years old right-handed dominant presented to the ER with complains of right hand medial side pain after he was fighting off of a bee and accidentally hit against the car door prior to arrival. Patient reports moderate intensity sharp pain with movements of the fourth and fifth digits without numbness or tingling in the digits. Minimal to no swelling. No wrist pain. No skin break. No swelling medial dorsal aspect of right hand. Intact movements at the metacarpophalangeal and interphalangeal joints of fourth and fifth digit. Tenderness to palpation. No crepitus. I offered pain medication which she declined. X-rays are negative for fracture dislocation. I believe patient has contusion, placed in premade splint, recommended intermittent ice application, Tylenol/ibuprofen and outpatient follow-up. Discussed signs symptoms of worsening needing return to ER which he seems understanding. Stable for discharge. Allergies/Adverse Reactions: ammonia Allergy (Severe, Verified 06/04/24 13:48) Anaphylactic Reaction permethrin Allergy (Unknown, Verified 06/04/24 13:48) Swelling Home Medications: Estradiol Valerate 0.2 ml IM 2XW 06/04/24 [History] Progesterone, Micronized [Prometrium] 200 mg PO DAILY 06/04/24 [History] Hx Tetanus, Diphtheria Vaccination/Date Given: Yes Hx Influenza Vaccination/Date Given: No Hx Pneumococcal Vaccination/Date Given: No Travel Risk - International Travel Have you traveled outside of the country in past 3 weeks: No - Emerging Infectious Disease Are you exhibiting symptoms associated with any current EIDs: No - Review of Systems Constitutional: No Symptoms Ears, Nose, & Throat: No Symptoms Respiratory: No Symptoms Cardiac: No Symptoms Musculoskeletal: Joint Pain Skin: No Symptoms Neurological: No Symptoms Hematologic/Lymphatic: No Symptoms Immunological/Allergic: No Symptoms - Past Medical History Pertinent Past Medical History: Yes Neurological History: No Pertinent History ENT History: No Pertinent History Cardiac History: No Pertinent History Respiratory History: Asthma, Sleep Apnea Endocrine Medical History: No Pertinent History Musculoskeletal History: No Pertinent History GI Medical History: No Pertinent History History: No Pertinent History Psycho-Social History: Anxiety, Attention Deficit Disorder, Panic Disorder, Other Male Reproductive Disorders: No Pertinent History Other Medical History: anger issues, seperation anxiety, depression and past suicidal ideation and attmepts "mainly with pills" - Past Surgical History Past Surgical History: Yes Neuro Surgical History: No Pertinent History Cardiac: No Pertinent History Respiratory: No Pertinent History Gastrointestinal: No Pertinent History Genitourinary: No Pertinent History Musculoskeletal: No Pertinent History Male Surgical History: No Pertinent History Other Surgical History: TUBES IN EARS x 4 Significant Family History: no pertinent family hx - Social History Smoking Status: Current every day smoker How long have you smoked: 10 years Exposure to second hand smoke: Yes Drug Use: marijuana Patient Lives Alone: No - Social Determinants of Health Will the patient participate in the screening: Yes Do you worry about a steady place to live?: No Do you have any problems with any of the following?: No known problems In the past 12 months,have you had to go without utilities?: No Transportation Issues: No Has anyone in your support network made you feel unsafe?: No Have you or anyone in your house had to go without enough: No - Nursing Vital Signs Nursing Vital Signs: Initial Vital Signs Temperature 97.6 F 06/04/24 13:41 Pulse Rate 93 H 06/04/24 13:41 Blood Pressure 120/78 06/04/24 13:41 O2 Sat by Pulse Oximetry 98 06/04/24 13:41 Pain Scale Pain Intensity 7 - Physical Exam General Appearance: no apparent distress, alert Eyes, Ears, Nose, Throat Exam: normal ENT inspection Neck Exam: normal inspection, full range of motion Cardiovascular/Respiratory Exam: normal breath sounds, regular rate/rhythm Wrist Exam: normal inspection, non-tender, no evidence of injury, normal ROM Hand Exam: normal inspection, bone tenderness (Fourth and fifth metacarpal right hand) Neuro/Tendon Exam: normal sensation, normal motor functions, normal tendon functions Mental Status Exam: alert, oriented x 3, cooperative Skin Exam: normal color SpO2 Interpretation: normal SpO2: 98 O2 Delivery: Room Air Ordered Tests: Active Orders 24 hr Category Date Time Status HAND (2 VIEW) Stat Exams 06/04/24 13:57 Completed - Progress Progress: unchanged Progress Note: 06/04/24 15:12 23 years old right-handed dominant presented to the ER with complains of right hand medial side pain after he was fighting off of a bee and accidentally hit against the car door prior to arrival. Patient reports moderate intensity sharp pain with movements of the fourth and fifth digits without numbness or tingling in the digits. Minimal to no swelling. No wrist pain. No skin break. No swelling medial dorsal aspect of right hand. Intact movements at the metacarpophalangeal and interphalangeal joints of fourth and fifth digit. Tenderness to palpation. No crepitus. I offered pain medication which she declined. X-rays are negative for fracture dislocation. I believe patient has contusion, placed in premade splint, recommended intermittent ice application, Tylenol/ibuprofen and outpatient follow-up. Discussed signs symptoms of worsening needing return to ER which he seems understanding. Stable for discharge. Counseled pt/family regarding: diagnosis, need for follow-up, rad results Medical Desision Making - Diagnostic Testing Diagnostic test were ordered, analyzed, and reviewed by me: Yes Radiological Interpretation: Reviewed by me - Risk of complications The pt has a mod risk of morbidity or mortality based on: Need for prescription drug management - Departure Departure Disposition: Home Clinical Impression: Hand contusion Condition: Stable Critical Care Time: No Referrals: DOCTOR,NO FAMILY [Primary Care Provider] - Follow up/PCP as directed NIYA POTTS MD [ACTIVE STAFF] - Follow up other (Call for appointment for reevaluation) Instructions: Minor Contusion ED Additional Instructions: Intermittent ice application. Tylenol/ibuprofen as needed for pain. Follow-up with primary care/orthopedics for reevaluation. Return to ER for any worsening Prescriptions: Ibuprofen 600 mg PO Q6HPRN PRN 10 Days #20 tablet PRN Reason: Pain
== END 2024-06-04 15:24 | disposition home or self-care (01) ==
LOC: ED 13:33
DX: S60.221A Contusion of right hand, initial encounter (principal); W22.09XA Striking against other stationary object, initial encounter; Z79.899 Other long term (current) drug therapy; Z72.0 Tobacco use
CPT/HCPCS: 73120; 99283; A4570

== ENCOUNTER 2024-07-04 01:52 | Emergency (ER) | payer OTHER ==
[2024-07-04 02:35] VITALS: TEMP 97.3; O2SAT 99
--- NOTE | 2024-07-04 02:40 | ERPHSYRPT ---
- History of Present Illness Time Seen by Provider: 07/04/24 02:15 Source: patient Exam Limitations: no limitations Physician History: She is a 23-year-old biologically male patient in hopes of transitioning into a female and still has testicles and penis and notices intermittent tenderness, enlarging nodule/mass on or near the right testicle. He is concerned about this. Patient has been on steroids and antibiotics in the past without this site improving. Timing/Duration: other (This nodule/mass present for several months at a minimum) Activites at Onset: none Quality: burning Onset Location: right testicle Severity of Pain-Max: mild (To moderate) Severity of Pain-Current: mild (To palpation) Modifying Factors: Improves With: palpation (Worsens) Associated Symptoms: lumps (Right testicular or just proximal to it), mass (Right testicular or just proximal to it) Sexual intercourse history: non-contributory Allergies/Adverse Reactions: ammonia Allergy (Severe, Verified 07/04/24 02:00) Anaphylactic Reaction permethrin Allergy (Unknown, Verified 07/04/24 02:00) Swelling Home Medications: Estradiol Valerate 0.2 ml IM 2XW 06/04/24 [History] Progesterone, Micronized [Prometrium] 200 mg PO DAILY 06/04/24 [History] Hx Tetanus, Diphtheria Vaccination/Date Given: Yes Hx Influenza Vaccination/Date Given: No Hx Pneumococcal Vaccination/Date Given: No Travel Risk - International Travel Have you traveled outside of the country in past 3 weeks: No - Emerging Infectious Disease Are you exhibiting symptoms associated with any current EIDs: No - Past Medical History Pertinent Past Medical History: Yes Neurological History: No Pertinent History ENT History: No Pertinent History Cardiac History: No Pertinent History Respiratory History: Asthma, Sleep Apnea Endocrine Medical History: No Pertinent History Musculoskeletal History: No Pertinent History GI Medical History: No Pertinent History History: No Pertinent History Psycho-Social History: Anxiety, Attention Deficit Disorder, Panic Disorder, Other Male Reproductive Disorders: No Pertinent History Other Medical History: anger issues, seperation anxiety, depression and past suicidal ideation and attmepts "mainly with pills" - Past Surgical History Past Surgical History: Yes Neuro Surgical History: No Pertinent History Cardiac: No Pertinent History Respiratory: No Pertinent History Gastrointestinal: No Pertinent History Genitourinary: No Pertinent History Musculoskeletal: No Pertinent History Male Surgical History: No Pertinent History Other Surgical History: TUBES IN EARS x 4 Significant Family History: no pertinent family hx - Social History Smoking Status: Current every day smoker How long have you smoked: 10 years Exposure to second hand smoke: Yes Drug Use: marijuana Patient Lives Alone: No - Social Determinants of Health Will the patient participate in the screening: Yes Do you worry about a steady place to live?: No In the past 12 months,have you had to go without utilities?: No Transportation Issues: No Has anyone in your support network made you feel unsafe?: No Have you or anyone in your house had to go without enough: No - Review of Systems Constitutional: No Symptoms Eyes: No Symptoms Ears, Nose, & Throat: No Symptoms Respiratory: No Symptoms Cardiac: No Symptoms Abdominal/Gastrointestinal: No Symptoms Genitourinary Symptoms: Testicle Pain (Right side), Other (Right testicular or proximal to it, intermittently tender and slightly enlarged lump/mass) Musculoskeletal: No Symptoms Skin: No Symptoms Neurological: No Symptoms Psychological: No Symptoms Endocrine: No Symptoms Hematologic/Lymphatic: No Symptoms Immunological/Allergic: No Symptoms All Other Systems: Reviewed and Negative - Physical Exam General Appearance: no apparent distress, alert, anxiety, thin Eye Exam: PERRL/EOMI, eyes nml inspection Ears, Nose, Throat Exam: normal ENT inspection, moist mucous membranes Neck Exam: normal inspection, non-tender, supple, full range of motion Respiratory Exam: airway intact, No chest tenderness, No respiratory distress Gastrointestinal/Abdomen Exam: soft, normal bowel sounds, No tenderness Rectal Exam: not done Male Genital Exam: lesions (Proximal and adjacent to the right testicle, tender smooth approximately 0.5 to 1 cm in size. Nonmobile mass/nodule), No inguinal lymphadenopathy Back Exam: normal inspection, normal range of motion, No CVA tenderness, No vertebral tenderness Extremity Exam: normal inspection, normal range of motion, pelvis stable Neurologic Exam: alert, oriented x 3, cooperative, copy operator II-XII nml as tested, nml cerebellar function, nml station & gait, sensation nml Skin Exam: normal color, warm, dry Lymphatic Exam: No adenopathy SpO2 Interpretation: normal O2 Delivery: Room Air - Course Nursing assessment & vital signs reviewed: Yes - Progress Progress: unchanged Progress Note: 07/04/24 02:40 My medical decision making and the assignment of low complexity to this patient's medical issue today is based on review of the patient's past medical history, review the patient's medication list, reviewed patient drug allergy list, history present nose and physical findings on examination. We did have a discussion regarding placing the patient on antibiotics and possibly steroids. Patient states he is recently been on antibiotics and steroids for other skin type conditions and the nodule/mass within the scrotum proximal/adjacent to the right testicle did not get smaller in fact might have slightly increased in size. Differential diagnosis includes but is not limited to testicular mass, varicocele, and epididymal swelling. In any event, I think an ultrasound of this area is warranted but not on an emergent basis. I discussed this with the patient and he is understanding that it has been there several months and that he could return to the emergency department here at [facility] on 07/06/2024 and there is a good possibility that an ultrasound can be performed through the emergency department. The patient does not have a primary care provider in this area. He does see an factory assembler. He states he understands and he is going to call around at other hospitals to see if they have ultrasound in-house and if they would be willing, through their emergency department, to perform an ultrasound urgently/emergently. 07/04/24 02:43 I told the patient that it is highly unlikely that he has any kind of portion. This has been present for several months. Counseled pt/family regarding: diagnosis, need for follow-up Medical Desision Making - Risk of complications Minimal Risk: Minimal risk of morbidity - Departure Departure Disposition: Home Clinical Impression: Testicular nodule Condition: Stable Critical Care Time: No Referrals: DOCTOR,NO FAMILY [Primary Care Provider] - Follow up/PCP as directed Additional Instructions: Use Tylenol and ibuprofen for pain control. Call your factory assembler or other primary care provider on 07/06/2024 to make arrangements for outpatient ultrasound. If you are unable to secure an appointment then you may return to the [facility] emergency department to see if, when the ultrasound services available, an ultrasound can be obtained.
[2024-07-04 02:48] VITALS: BP 128/78; PULSE 92; RESP 18
== END 2024-07-04 02:57 | disposition home or self-care (01) ==
LOC: ED 01:52
DX: N50.89 Other specified disorders of the male genital organs (principal); Z79.899 Other long term (current) drug therapy; Z72.0 Tobacco use
CPT/HCPCS: 99281

== ENCOUNTER 2025-04-11 19:28 | Emergency (ER) | payer BC, OTHER ==
--- NOTE | 2025-04-11 19:41 | ERPHSYRPT ---
- History of Present Illness Time Seen by Provider: 04/11/25 19:41 Source: patient, family Exam Limitations: no limitations Physician History: This is a 24-year-old who was born in male but is transgender and into female and goes by the name "Inge" and presents to the emergency department with 2 skin lesion/patches of the ventral portion of her penis. She noticed it within 9 hours after unprotected sexual encounter. He has not had any penile discharge. There is no pain, burning or itchiness. She did state that she shaves this area occasionally and did shave it 2 days ago. In addition to evaluating these skin skin patches, patient wants to be tested for HIV, UTI, GC and chlamydia. Timing/Duration: today Severity: mild Location: genitalia (Ventral shaft of penis) Possible Causes: other (Possibility of these 2 sites being present secondary to recent shaving of this area) Associated Symptoms: denies symptoms Allergies/Adverse Reactions: ammonia Allergy (Severe, Verified 04/11/25 19:36) Anaphylactic Reaction permethrin Allergy (Unknown, Verified 04/11/25 19:36) Swelling Home Medications: Estradiol Valerate 0.2 ml IM 2XW 06/04/24 [History] Progesterone, Micronized [Prometrium] 200 mg PO DAILY 06/04/24 [History] Hx Tetanus, Diphtheria Vaccination/Date Given: Yes Hx Influenza Vaccination/Date Given: No Hx Pneumococcal Vaccination/Date Given: No Travel Risk - International Travel Have you traveled outside of the country in past 3 weeks: No - Emerging Infectious Disease Are you exhibiting symptoms associated with any current EIDs: No - Review of Systems Constitutional: No Symptoms Eyes: No Symptoms Ears, Nose, & Throat: No Symptoms Respiratory: No Symptoms Cardiac: No Symptoms Abdominal/Gastrointestinal: No Symptoms Genitourinary Symptoms: No Symptoms, No Dysuria, No Frequency, No Penile Discharge Skin: No Symptoms Neurological: No Symptoms Psychological: No Symptoms Endocrine: No Symptoms Hematologic/Lymphatic: No Symptoms Immunological/Allergic: No Symptoms All Other Systems: Reviewed and Negative - Past Medical History Pertinent Past Medical History: Yes Neurological History: No Pertinent History ENT History: No Pertinent History Cardiac History: No Pertinent History Respiratory History: Asthma, Sleep Apnea Endocrine Medical History: No Pertinent History Musculoskeletal History: No Pertinent History GI Medical History: No Pertinent History History: No Pertinent History Psycho-Social History: Anxiety, Attention Deficit Disorder, Panic Disorder, Other Male Reproductive Disorders: No Pertinent History Other Medical History: anger issues, seperation anxiety, depression and past suicidal ideation and attmepts "mainly with pills" - Past Surgical History Past Surgical History: Yes Neuro Surgical History: No Pertinent History Cardiac: No Pertinent History Respiratory: No Pertinent History Gastrointestinal: No Pertinent History Genitourinary: No Pertinent History Musculoskeletal: No Pertinent History Male Surgical History: No Pertinent History Other Surgical History: TUBES IN EARS x 4 Significant Family History: no pertinent family hx - Social History Smoking Status: Current every day smoker How long have you smoked: 10 years Exposure to second hand smoke: Yes Drug Use: marijuana Patient Lives Alone: No - Social Determinants of Health Will the patient participate in the screening: Yes Do you worry about a steady place to live?: No In the past 12 months,have you had to go without utilities?: No Transportation Issues: No Has anyone in your support network made you feel unsafe?: No Have you or anyone in your house had to go w/o enough food: No - Nursing Vital Signs Nursing Vital Signs: Initial Vital Signs Temperature 97.4 F 04/11/25 19:37 Pulse Rate 100 H 04/11/25 19:37 Respiratory Rate 18 04/11/25 19:37 Blood Pressure 140/98 04/11/25 19:37 O2 Sat by Pulse Oximetry 98 04/11/25 19:37 Pain Scale Pain Intensity 0 - Physical Exam General Appearance: no apparent distress, alert, anxiety, thin Eye Exam: PERRL/EOMI, eyes nml inspection Ears, Nose, Throat Exam: normal ENT inspection, moist mucous membranes Neck Exam: normal inspection, non-tender, supple, full range of motion Respiratory Exam: No chest tenderness, No respiratory distress Gastrointestinal/Abdomen Exam: soft, normal bowel sounds, No tenderness Male Genitalia Exam: penile lesion (2 small patches ventral portion of the shaft of his penis. No cellulitis. No ulcerations. There is small regions x 2 of redness), No penile discharge Rectal Exam: not done Back Exam: normal inspection, normal range of motion, No CVA tenderness, No vertebral tenderness Extremity Exam: normal inspection, normal range of motion, pelvis stable Neurologic Exam: alert, oriented x 3, cooperative, subgrade roller operator II-XII nml as tested, nml cerebellar function, nml station & gait, sensation nml Skin Exam: normal color, warm, dry Lymphatic Exam: No adenopathy SpO2 Interpretation: normal O2 Delivery: Room Air - Course Nursing assessment & vital signs reviewed: Yes Ordered Tests: Active Orders 24 hr Category Date Time Status UA W/RFX UR CULTURE Stat Lab 04/11/25 20:40 Completed Lab/Rad Data: Laboratory Results 04/11/25 04/11/25 Range/Units 20:54 20:40 Urine Color Dark Yellow (Yellow) Urine Appearance Turbid A (Clear) Urine pH 5.0 (4.6-8.0) Ur Specific Castine >=1.030 A (1.005-1.030) Urine Protein Trace A (Negative) Urine Glucose (UA) Negative (Negative) mg/dL Urine Ketones 15 A (Negative) Urine Blood Negative (Negative) Urine Nitrite Negative (Negative) Urine Bilirubin Negative (Negative) Urine Urobilinogen 1.0 A (0.2) mg/dL Ur Leukocyte Esterase Negative (Negative) U Hyaline Cast (Auto) 3-5 A (0-2) /LPF Urine Microscopic RBC 0-2 (0-5) /HPF Urine Microscopic WBC 0-2 (0-5) /HPF Ur Epithelial Cells Rare (None Seen) /HPF Calcium Oxalate Crystal 0-2 A (None Seen) /HPF Amorphous Crystals Many A (None Seen) /HPF Urine Bacteria Rare A (None Seen) /HPF Urine Culture Reflexed NO (NO) Chlamydia DNA Probe NOT DETECTED (NEGATIVE) N.gonorrhoeae DNA Probe NOT DETECTED (NEGATIVE) - Progress Progress: unchanged Progress Note: 04/11/25 21:11 My medical decision making and the assignment of low complexity of this patient's medical issue today is based on review of the patient's past medical history, review the patient's medication list, reviewed patient drug allergy list, history present illness and physical findings on examination. The workup in this patient today is based on the patient request of checking her for HIV, GC/chlamydia and performing a urinalysis. Patient realized that the HIV test is a send out but we will order this for her Differential diagnosis includes but is not limited to STI, urinary tract infection, excoriation 04/11/25 22:30 I interpreted the patient's laboratory data results. Based on the laboratory data results, there are no acute, emergent medical issues. Counseled pt/family regarding: lab results, diagnosis, need for follow-up Medical Desision Making - Independent Historian Additional History obtained from: Family - Diagnostic Testing Diagnostic test were ordered, analyzed, and reviewed by me: Yes - Risk of complications Low Risk: Low risk of morbidity from additional dx testing or treatment - Departure Departure Disposition: Home Clinical Impression: Skin excoriation Condition: Stable Critical Care Time: No Referrals: DOCTOR,NO FAMILY [NON-STAFF PHY W/O PRIVILEGES, UNKNOWN] - Follow up/PCP as directed Additional Instructions: Take your medications as prescribed. Keep the skin lesion site clean with soap and water at least once a day. Make sure you keep the area dry. You may apply antibiotic ointment of choice to the site. Call your primary care provider tomorrow, 04/12/2025, to make arranges for follow-up appointment for further evaluation management.
[2025-04-11 19:48] VITALS: TEMP 97.4
[2025-04-11 21:11] LABS: Amourphous Crystal Many /HPF (None Seen); Appearance Turbid (Clear); Bacteria Rare /HPF (None Seen); Bilirubin Negative (Negative); Blood Negative (Negative); Calcium Oxalate Crystals 0-2 /HPF (None Seen); Epithelial Cells Rare /HPF (None Seen); Glucose, Urine Negative (Negative); Ketones 15 (Negative); Leukocyte Esterase Negative (Negative); Nitrite Negative (Negative); Protein,Urine Dip Trace (Negative); RBC 0-2 /HPF (0-5); Specific Gravity >=1.030 (1.005-1.030); WBC 0-2 /HPF (0-5)
[2025-04-11 22:06] VITALS: BP 133/101; PULSE 84; RESP 17; O2SAT 100
[2025-04-11 22:18] LABS: CHLAMYDIA DNA NOT DETECTED (NEGATIVE); GC DNA Probe NOT DETECTED (NEGATIVE)
[2025-04-13 09:43] LABS: HIV Screen 4th Generation wRfx Non Reactive (Non Reactive)
== END 2025-04-11 22:46 | disposition home or self-care (01) ==
LOC: ED 19:28
DX: S30.812A Abrasion of penis, initial encounter (principal); Z72.0 Tobacco use; Z20.2 Contact with and (suspected) exposure to infections with a predominantly sexual mode of transmission
CPT/HCPCS: 36415; 81001; 87389; 87491; 87591; 99282; 99283

== ENCOUNTER 2025-10-14 00:35 | Emergency (ER) | payer OTHER ==
[2025-10-14 00:42] VITALS: TEMP 97.2
--- NOTE | 2025-10-14 01:03 | ERPHSYRPT ---
- History of Present Illness Time Seen by Provider: 10/14/25 00:57 Historian: patient Exam Limitations: no limitations Allergies/Adverse Reactions: ammonia Allergy (Severe, Verified 10/14/25 00:39) Anaphylactic Reaction permethrin Allergy (Unknown, Verified 10/14/25 00:39) Swelling Home Medications: No Reportable Medications [No Reported Medications] 10/14/25 [History] Hx Tetanus, Diphtheria Vaccination/Date Given: Yes Hx Influenza Vaccination/Date Given: No Hx Pneumococcal Vaccination/Date Given: No Travel Risk - Emerging Infectious Disease Are you exhibiting symptoms associated with any current EIDs: No Symptoms: Rash - Review of Systems All Other Systems: Reviewed and Negative - Past Medical History Pertinent Past Medical History: Yes Neurological History: No Pertinent History ENT History: No Pertinent History Cardiac History: No Pertinent History Respiratory History: Asthma, Sleep Apnea Endocrine Medical History: No Pertinent History Musculoskeletal History: No Pertinent History GI Medical History: No Pertinent History History: No Pertinent History Psycho-Social History: Anxiety, Attention Deficit Disorder, Panic Disorder, Other Male Reproductive Disorders: No Pertinent History Other Medical History: anger issues, seperation anxiety, depression and past suicidal ideation and attmepts "mainly with pills" - Past Surgical History Past Surgical History: Yes Neuro Surgical History: No Pertinent History Cardiac: No Pertinent History Respiratory: No Pertinent History Gastrointestinal: No Pertinent History Genitourinary: No Pertinent History Musculoskeletal: No Pertinent History Male Surgical History: No Pertinent History Other Surgical History: TUBES IN EARS x 4 Significant Family History: no pertinent family hx - Social History Smoking Status: Current every day smoker How long have you smoked: 10 years Exposure to second hand smoke: Yes Drug Use: marijuana Patient Lives Alone: No - Social Determinants of Health Will the patient participate in the screening: Yes Do you worry about a steady place to live?: No In the past 12 months,have you had to go without utilities?: No Transportation Issues: No Has anyone in your support network made you feel unsafe?: No Have you or anyone in your house had to go w/o enough food: No - Nursing Vital Signs Nursing Vital Signs: Initial Vital Signs Temperature 97.2 F 10/14/25 00:40 Pulse Rate 140 H 10/14/25 00:40 Respiratory Rate 18 10/14/25 00:40 Blood Pressure 149/109 10/14/25 00:40 O2 Sat by Pulse Oximetry 99 10/14/25 00:40 Pain Scale Pain Intensity 0 - Physical Exam SpO2: 99 - Departure Referrals: RACHEL LARIOS MD [Primary Care Provider, INTERNAL MEDICINE] - Follow up/PCP as directed
--- NOTE | 2025-10-14 01:16 | ERPHSYRPT ---
- History of Present Illness Time Seen by Provider: 10/14/25 00:57 Historian: patient Exam Limitations: no limitations Patient Subjective Stated Complaint: palpitations Triage Nursing Assessment: Pt brought in by EMS for c/o palpitations. Pt states, "I've been having this issue for a few months and I'm too young to be having heart issues". Pt was at rest and began having palpitations. Pt's HR is tachy, but regular; pt is anxious, yelling one minute then crying and tearful the next minute. Lungs clear, no edema noted. Pt denies any chest pain at this time. Physician History: Patient is a 24-year-old transgender female prefers to be address by the name "Inge" has a history of asthma, sleep apnea, anxiety, ADD, panic disorder vape, use, recent alcohol use presents to our ED via EMS for evaluation of heart palpitations that have been intermittent for a few months. Patient appears very anxious. Patient states that she has an appointment with a office spec Marika Leon. No associated nausea vomiting or diaphoresis. No trauma no fever. Symptoms are mild to moderate in intensity. No specific worsening or proving factors. Patient states heart problems run in his family. He voices no other complaints or concerns at this time. Of note patient was on hormonal therapy, estrogen and progesterone injections approximately 5 to 6 months ago. Patient is not currently on hormonal therapy Portions of this note were created with voice recognition technology. There may be grammatical, spelling, punctuation or sound alike errors Timing/Duration: today Activities at Onset: none Quality: pressure Location: substernal Chest Pain Radiation: no radiation Severity of Pain-Max: moderate Severity of Pain-Current: mild Modifying Factors: Improves With: nothing Associated Symptoms: denies symptoms Prior Chest Pain/Cardiac Workup: no prior cardiac workup Nitro Today/Relief: no nitro taken today Aspirin Treatment Today: no aspirin today Allergies/Adverse Reactions: ammonia Allergy (Severe, Verified 10/14/25 00:39) Anaphylactic Reaction permethrin Allergy (Unknown, Verified 10/14/25 00:39) Swelling Home Medications: No Reportable Medications [No Reported Medications] 10/14/25 [History] Hx Tetanus, Diphtheria Vaccination/Date Given: No (pt refuses) Hx Influenza Vaccination/Date Given: No Hx Pneumococcal Vaccination/Date Given: No Travel Risk - International Travel Have you traveled outside of the country in past 3 weeks: No - Emerging Infectious Disease Are you exhibiting symptoms associated with any current EIDs: No Symptoms: Rash - Review of Systems All Other Systems: Reviewed and Negative - Past Medical History Pertinent Past Medical History: Yes Neurological History: No Pertinent History ENT History: No Pertinent History Cardiac History: No Pertinent History Respiratory History: Asthma, Sleep Apnea Endocrine Medical History: No Pertinent History Musculoskeletal History: No Pertinent History GI Medical History: No Pertinent History History: No Pertinent History Psycho-Social History: Anxiety, Attention Deficit Disorder, Panic Disorder, Other Male Reproductive Disorders: No Pertinent History Other Medical History: anger issues, seperation anxiety, depression and past suicidal ideation and attempts "mainly with pills" - Past Surgical History Past Surgical History: Yes Neuro Surgical History: No Pertinent History Cardiac: No Pertinent History Respiratory: No Pertinent History Gastrointestinal: No Pertinent History Genitourinary: No Pertinent History Musculoskeletal: No Pertinent History Male Surgical History: No Pertinent History Other Surgical History: TUBES IN EARS x 4, correction surgery to your throat Significant Family History: no pertinent family hx - Social History Smoking Status: Current every day smoker Exposure to second hand smoke: Yes Drug Use: marijuana - Social Determinants of Health Will the patient participate in the screening: Yes Do you worry about a steady place to live?: No Do you have any problems with any of the following?: No known problems In the past 12 months,have you had to go without utilities?: No Transportation Issues: No Has anyone in your support network made you feel unsafe?: No Have you or anyone in your house had to go w/o enough food: No - Nursing Vital Signs Nursing Vital Signs: Initial Vital Signs Pulse Rate 123 H 10/14/25 00:39 Respiratory Rate 17 10/14/25 00:39 Blood Pressure 149/109 10/14/25 00:39 O2 Sat by Pulse Oximetry 97 10/14/25 00:39 Pain Scale Pain Intensity 0 - Physical Exam General Appearance: no apparent distress, alert Eye Exam: PERRL/EOMI, eyes nml inspection Ears, Nose, Throat Exam: normal ENT inspection, moist mucous membranes Neck Exam: normal inspection, non-tender, supple, full range of motion Respiratory Exam: normal breath sounds, lungs clear, No respiratory distress Cardiovascular Exam: regular rate/rhythm, normal heart sounds Gastrointestinal/Abdomen Exam: soft, No tenderness, No mass Back Exam: normal inspection, No CVA tenderness, No vertebral tenderness Extremity Exam: normal inspection, normal range of motion Neurologic Exam: alert, oriented x 3, cooperative, normal mood/affect, sensation nml, No motor deficits Skin Exam: normal color, warm, dry Lymphatic Exam: No adenopathy SpO2 Interpretation: normal SpO2: 98 O2 Delivery: Room Air - Course Nursing assessment & vital signs reviewed: Yes EKG Interpreted by Me: RATE ([id number]), Sinus Tach, Left [place] Deviation, NORMAL INTERVALS, NORMAL QRS - Radiology Exams Chest X-ray Interpretation: Interpreted by me (No acute findings) Ordered Tests: Active Orders 24 hr Category Date Time Status Blender Snuff STAT Care 10/14/25 01:00 Active EKG-ER Only STAT Care 10/14/25 00:59 Completed IV Insertion STAT Care 10/14/25 00:59 Active Pulse Oximetry (ED) STAT Care 10/14/25 00:59 Active CHEST 1 VIEW (PORTABLE) Stat Exams 10/14/25 01:00 Taken CBC W DIFF Stat Lab 10/14/25 01:20 Completed CMP Stat Lab 10/14/25 01:20 Completed D-DIMER QUANTITATIVE Stat Lab 10/14/25 01:20 Completed ETHYL ALCOHOL Stat Lab 10/14/25 01:20 Completed TROPONIN Q4H Lab 10/14/25 01:20 Completed TROPONIN Q4H Lab 10/14/25 05:00 Ordered TROPONIN Q4H Lab 10/14/25 09:00 Ordered TSH [TSH, 3RD Generation] Stat Lab 10/14/25 01:29 Ordered UA W/RFX UR CULTURE Stat Lab 10/14/25 01:19 Completed Urine Triage Profile Stat Lab 10/14/25 01:19 Completed Medication Summary Generic Name Dose Route Start Last Admin Trade Name Freq PRN Reason Stop Dose Admin Sodium Chloride 1,000 mls @ 999 mls/hr 10/14/25 01:29 10/14/25 01:37 Sodium Chloride 0.9% 1000 Ml IV 10/14/25 02:29 999 mls/hr .Q1H1M STA Administration Discontinued Medications Generic Name Dose Route Start Last Admin Trade Name Freq PRN Reason Stop Dose Admin Sodium Chloride Confirm 10/14/25 01:35 Sodium Chloride 0.9% 1000 Ml Administered 10/14/25 01:36 Dose 1,000 mls @ ud .ROUTE .STK-MED ONE Lab/Rad Data: Laboratory Result Diagrams 10/14/25 01:20 10/14/25 01:20 Laboratory Results 10/14/25 10/14/25 10/14/25 Range/Units 01:20 01:20 01:20 WBC (4.23-9.07) x10^3/uL RBC (4.63-6.08) x10^6/uL Hgb (13.7-17.5) g/dL Hct (40.1-51.0) % MCV (79.0-92.2) fL MCH (25.7-32.2) pg MCHC (32.3-36.5) g/dL RDW (11.6-14.4) % Plt Count (163-337) x10^3/uL MPV (9.4-12.4) fL Gran % (34.0-67.9) % Immature Gran % (Auto) (0.001-0.429) % Nucleat RBC Rel Count (0.00-0.2) % Eos # (Auto) (0.04-0.54) x10^3/uL Immature Gran # (Auto) (0.001-0.031) x10^3u/L Absolute Lymphs (auto) (1.32-3.57) x10^3/uL Absolute Monos (auto) (0.30-0.82) x10^3/uL Absolute Nucleated RBC (0.00-0.012) x10^3u/L Lymphocytes % (21.8-53.1) % Monocytes % (5.3-12.2) % Eosinophils % (0.8-7.0) % Basophils % (0.2-1.2) % Absolute Granulocytes (1.78-5.38) x10^3/uL Basophils # (0.01-0.08) x10^3/uL D-Dimer < 0.19 (0.0-0.50) mg/L Sodium 146 H (135-145) mmol/L Potassium 3.7 (3.5-5.1) mmol/L Chloride 110 H (98-107) mmol/L Carbon Dioxide 18 L (22-30) mmol/L Anion Gap 22.1 H (5-15) MEQ/L BUN 5 L (9-20) mg/dL Creatinine 1.03 (0.66-1.25) mg/dL Estimated GFR 104.0 ML/MIN Glucose 97 (74-106) mg/dL Calcium 9.8 (8.4-10.2) mg/dL Total Bilirubin 1.80 H (0.2-1.3) mg/dL AST 36 (17-59) U/L ALT 28 (0-50) U/L Alkaline Phosphatase 71 (38-126) U/L Troponin I < 0.012 (0.000-0.033) ng/mL Serum Total Protein 9.3 H (6.3-8.2) g/dL Albumin 5.6 H (3.5-5.0) g/dL Urine Color (Yellow) Urine Appearance (Clear) Urine pH (4.6-8.0) Ur Specific [place] (1.005-1.030) Urine Protein (Negative) Urine Glucose (UA) (Negative) mg/dL Urine Ketones (Negative) Urine Blood (Negative) Urine Nitrite (Negative) Urine Bilirubin (Negative) Urine Urobilinogen (0.2) mg/dL Ur Leukocyte Esterase (Negative) U Hyaline Cast (Auto) (0-2) /LPF Urine Microscopic RBC (0-5) /HPF Urine Microscopic WBC (0-5) /HPF Ur Epithelial Cells (None Seen) /HPF Urine Bacteria (None Seen) /HPF Urine Culture Reflexed (NO) Urine Opiates Level (NEGATIVE) Ur Methadone (NEGATIVE) Urine Barbiturates (NEGATIVE) Ur Phencyclidine (PCP) (NEGATIVE) Urine Amphetamine (NEGATIVE) U Benzodiazepine Level (NEGATIVE) Urine Cocaine (NEGATIVE) Urine Marijuana (THC) (NEGATIVE) Ethyl Alcohol 297 H (0-10) mg/dL 10/14/25 10/14/25 10/14/25 Range/Units 01:20 01:19 01:19 WBC 6.4 (4.23-9.07) x10^3/uL RBC 5.12 (4.63-6.08) x10^6/uL Hgb 16.0 (13.7-17.5) g/dL Hct 46.1 (40.1-51.0) % MCV 90.0 (79.0-92.2) fL MCH 31.3 (25.7-32.2) pg MCHC 34.7 (32.3-36.5) g/dL RDW 12.5 (11.6-14.4) % Plt Count 221 (163-337) x10^3/uL MPV 10.5 (9.4-12.4) fL Gran % 55.6 (34.0-67.9) % Immature Gran % (Auto) 0.5 H (0.001-0.429) % Nucleat RBC Rel Count 0.0 (0.00-0.2) % Eos # (Auto) 0.05 (0.04-0.54) x10^3/uL Immature Gran # (Auto) 0.03 (0.001-0.031) x10^3u/L Absolute Lymphs (auto) 2.40 (1.32-3.57) x10^3/uL Absolute Monos (auto) 0.29 L (0.30-0.82) x10^3/uL Absolute Nucleated RBC 0.00 (0.00-0.012) x10^3u/L Lymphocytes % 37.5 (21.8-53.1) % Monocytes % 4.5 L (5.3-12.2) % Eosinophils % 0.8 (0.8-7.0) % Basophils % 1.1 (0.2-1.2) % Absolute Granulocytes 3.56 (1.78-5.38) x10^3/uL Basophils # 0.07 (0.01-0.08) x10^3/uL D-Dimer (0.0-0.50) mg/L Sodium (135-145) mmol/L Potassium (3.5-5.1) mmol/L Chloride (98-107) mmol/L Carbon Dioxide (22-30) mmol/L Anion Gap (5-15) MEQ/L BUN (9-20) mg/dL Creatinine (0.66-1.25) mg/dL Estimated GFR ML/MIN Glucose (74-106) mg/dL Calcium (8.4-10.2) mg/dL Total Bilirubin (0.2-1.3) mg/dL AST (17-59) U/L ALT (0-50) U/L Alkaline Phosphatase (38-126) U/L Troponin I (0.000-0.033) ng/mL Serum Total Protein (6.3-8.2) g/dL Albumin (3.5-5.0) g/dL Urine Color Yellow (Yellow) Urine Appearance Clear (Clear) Urine pH 6.0 (4.6-8.0) Ur Specific [place] <=1.005 (1.005-1.030) Urine Protein Negative (Negative) Urine Glucose (UA) Negative (Negative) mg/dL Urine Ketones Negative (Negative) Urine Blood Negative (Negative) Urine Nitrite Negative (Negative) Urine Bilirubin Negative (Negative) Urine Urobilinogen 0.2 (0.2) mg/dL Ur Leukocyte Esterase Negative (Negative) U Hyaline Cast (Auto) NONE SEEN (0-2) /LPF Urine Microscopic RBC 0-2 (0-5) /HPF Urine Microscopic WBC 0-2 (0-5) /HPF Ur Epithelial Cells None Seen (None Seen) /HPF Urine Bacteria None Seen (None Seen) /HPF Urine Culture Reflexed NO (NO) Urine Opiates Level NEGATIVE (NEGATIVE) Ur Methadone NEGATIVE (NEGATIVE) Urine Barbiturates NEGATIVE (NEGATIVE) Ur Phencyclidine (PCP) NEGATIVE (NEGATIVE) Urine Amphetamine NEGATIVE (NEGATIVE) U Benzodiazepine Level NEGATIVE (NEGATIVE) Urine Cocaine NEGATIVE (NEGATIVE) Urine Marijuana (THC) NEGATIVE (NEGATIVE) Ethyl Alcohol (0-10) mg/dL - Progress Progress: improved Air Movement: good Progress Note: Patient is a 24-year-old transgender female prefers to be address by the name "Inge" has a history of asthma, sleep apnea, anxiety, ADD, panic disorder vape, use, recent alcohol use presents to our ED via EMS for evaluation of heart palpitations that have been intermittent for a few months. Patient appears very anxious. Patient states that she has an appointment with a office spec Marika Leon. No associated nausea vomiting or diaphoresis. Initial troponin negative. EKG sinus tachycardia. D-dimer negative. Chest x-ray negative. Chest x-ray reviewed and interpreted by Dr. Taveras. This is a preliminary read. Formal read pending. Patient informed staff that he felt well. Patient states he has certain obligations he has to meet in the mornings and had to leave. Patient decided to leave AGAINST MEDICAL ADVICE. Patient is of sound mind. Patient is appropriate to make informed and independent medical decisions. Patient understands that leaving AGAINST MEDICAL ADVICE can result in delayed diagnosis, increased risk of morbidity, mortality, short and long-term disability including . In spite of these risks, patient has decided to leave AGAINST MEDICAL ADVICE. Patient understands that she may return to our ED at any point if she reconsiders. Patient agrees to follow-up with her primary care doctor within 48 hours for reevaluation. Patient voices no other complaints or concerns at this time. We will release patient AGAINST MEDICAL ADVICE per their request. Complexity of problems addressed is moderate acute complicated. No critical care time. Complexity of data reviewed and analyzed is moderate. Test ordered test reviewed results analyzed and correlated clinically with history and physical exam. Risk of complication or risk of morbidity/mortality of patient management is low. Vital stable. Time spent to discharge AMA is approximately 15 minutes. No social determinants of health present to impede follow-up. Portions of this note were created with voice recognition technology. There may be grammatical, spelling, punctuation or sound alike errors 10/14/25 02:29 Blood Culture(s) Obtained: No Antibiotics given: No Counseled pt/family regarding: lab results, diagnosis, need for follow-up, rad results - Departure Departure Disposition: AMA Clinical Impression: Heart palpitations, Sinus tachycardia, Anxiety, Hypernatremia, Chest pain Condition: Stable Critical Care Time: No Referrals: RACHEL LARIOS MD [Primary Care Provider, [facility]] - Follow up/PCP as directed Additional Instructions: Discharge/Care Plan DOMINGO RUSSELL was seen on 10/14/25 in the Emergency Room. The patient was counseled regarding Diagnosis,Lab results, Imaging studies, need for follow up and when to return to the Emergency Room. Prescriptions given: Discharge Note I have spoken with the patient and/or caregivers. I have explained the patient's condition, diagnosis and treatment plan based on the information available to me at this time. I have answered the patient's and/or caregiver's questions and addressed any concerns. The patient and/or caregivers have as good understanding of the patient's diagnosis, condition and treatment plan as can be expected at this point. The vital signs have been stable. The patient's condition is stable and appropriate for discharge from the emergency department. The patient will pursue further outpatient evaluation with the primary care physician or other designated or consulting physician as outlined in the discharge instructions. The patient and/or caregivers are agreeable to this plan of care and follow-up instructions have been explained in detail. The patient and/or caregivers have received these instruction. The patient/and or caregivers are aware that any significant change in condition or worsening of symptoms should prompt an immediate return to this or the closest emergency department or call 911.
[2025-10-14 01:25] LABS: BASOPHIL % 1.1 % (0.2-1.2); Basophil (Absolute #) 0.07 x10^3/uL (0.01-0.08); Eosinophil (Absolute #) 0.05 x10^3/uL (0.04-0.54); Hematocrit 46.1 % (40.1-51.0); Hemoglobin 16.0 g/dL (13.7-17.5); IMMATURE GRAN # 0.03 x10^3u/L (0.001-0.031); IMMATURE GRAN % 0.5 % (0.001-0.429); Lymphocyte (Absolute #) 2.40 x10^3/uL (1.32-3.57); Mean Corpuscular Hemoglobin 31.3 pg (25.7-32.2); Mean Corpuscular Hgb Concent. 34.7 g/dL (32.3-36.5); Monocyte (Absolute #) 0.29 x10^3/uL (0.30-0.82); NUCLEATED RBC # 0.00 x10^3u/L (0.00-0.012); NUCLEATED RBC % 0.0 % (0.00-0.2); Platelet Count 221 x10^3/uL (163-337); Red Blood Count 5.12 x10^6/uL (4.63-6.08); White Blood Count 6.4 x10^3/uL (4.23-9.07)
[2025-10-14 01:41] LABS: Calcium 9.8 mg/dL (8.4-10.2); Carbon Dioxide 18.0 mmol/L (22-30); Creatinine 1 1.03 mg/dL (0.66-1.25); EST GLOMERULAR FILTRATION RATE 104.0 ML/MIN; ETHYL ALCOHOL 297.0 mg/dL (0-10); Glucose 97.0 mg/dL (74-106); Potassium 3.7 mmol/L (3.5-5.1); SGOT/AST 36.0 U/L (17-59); SGPT/ALT 28.0 U/L (0-50); Total Protein 9.3 g/dL (6.3-8.2)
[2025-10-14 01:43] LABS: Amphetamine,Urine NEGATIVE (NEGATIVE); Barbiturate,Urine NEGATIVE (NEGATIVE); Benzodiazepine,Urine NEGATIVE (NEGATIVE); Cocaine,Urine NEGATIVE (NEGATIVE); Methadone,Urine NEGATIVE (NEGATIVE); Opiate,Urine NEGATIVE (NEGATIVE); PCP,Urine NEGATIVE (NEGATIVE); THC,Urine NEGATIVE (NEGATIVE)
[2025-10-14 01:45] LABS: Glucose, Urine Negative (Negative); Protein,Urine Dip Negative (Negative); RBC 0-2 /HPF (0-5); WBC 0-2 /HPF (0-5)
[2025-10-14 02:05] VITALS: BP 120/80; PULSE 109; RESP 13
[2025-10-14 02:32] VITALS: O2SAT 98
--- NOTE | 2025-10-14 08:57 | XRAY ---
Indication: Palpitations. Comparison: July 10, 2020 Portable apical lordotic chest again demonstrates normal heart, lungs, and bony thorax.
== END 2025-10-14 02:28 | disposition left against medical advice (07) ==
LOC: ED 00:35
DX: R00.2 Palpitations (principal); R00.0 Tachycardia, unspecified; F41.9 Anxiety disorder, unspecified; E87.0 Hyperosmolality and hypernatremia; R07.9 Chest pain, unspecified; Z72.0 Tobacco use